=== PATIENT | female | born 1980 | race Caucasian/White ===

== ENCOUNTER 2022-09-21 09:54 | Observation (INO) | payer BC, SELFPAY ==
[2022-09-21] VITALS (24 sets, daily range): BP systolic 104–136; BP diastolic 59–89; PULSE 52–106; RESP 6–24; TEMP 36.4–36.9; O2SAT 97–100; BMI 26.6; BMI 26.3
--- NOTE | 2022-09-21 10:10 | CT_ITS ---
The [address] [address] Patient Name: DENISHA OWEN MRN: [id number] date: 1980 Sex: F Assigned Patient Location: ER Current Patient Location: ER Accession/Order Number: [id number] Exam Date: 09/21/2022 10:38 Report Date: 09/21/2022 11:20 At the request of: JENNIFER ORTEGA Procedure: CT abdomen pelvis w con EXAM: CT abdomen pelvis w con HISTORY: upper abdominal pain for one month which is worse in this morning. Nausea and vomiting this morning. COMPARISON: None. TECHNIQUE: Axial CT imaging was performed through the abdomen and pelvis with intravenous contrast. Multiplanar reformats were performed. Dose reduction techniques were achieved by using automated exposure control and/or adjustment of mA and/or kV according to patient size and/or use of iterative reconstruction technique. FINDINGS: Lung bases: Lung bases are clear. No pleural effusion. GI upper: Unremarkable. Liver: Normal size and contour. Indeterminate subcentimeter hypoattenuating lesions most likely represent tiny cysts or hemangiomas. Gallbladder: Cholecystectomy. Biliary system: Prominence of the biliary ducts is most likely postcholecystectomy in nature. Spleen: Normal size. Pancreas: Unremarkable. Adrenal glands: Normal adrenal glands. Kidneys/ureters: Normal contours. No hydronephrosis or ureterolithiasis. No nephrolithiasis. Subcentimeter hypoattenuating lesions of the bilateral kidneys are too small to further characterize although statistically most likely represent cysts. Vessels: No aneurysm. Lymph Nodes: No lymphadenopathy. Small bowel: No wall thickening or dilatation. Colon: Much of the distal colon is not well distended with mildly prominent wall. Few colonic diverticula without associated inflammatory change. Appendix: The appendix is mildly prominent in caliber without definite periappendiceal inflammatory change, measuring 9 mm (image 103 of series 3 and image 40 of series 5). Peritoneal cavity: Minimal free fluid within the pelvis is within physiologic limits. No pneumoperitoneum. Lower : Hysterectomy. Findings suspicious for right corpus luteum cyst. Possible left corpus luteum cyst as well. The bladder is not well distended which limits evaluation; no significant abnormality demonstrated. Bones: Degenerative findings without acute bony abnormality. Moderate spondylosis at L5-S1. Soft tissues: No acute finding. Additional findings: None. IMPRESSION: 1. Prominence of the distal colon wall is likely related to underdistention. Please exclude nonspecific colitis. 2. The appendix is enlarged without definite periappendiceal inflammatory change, measuring 9 mm. This may represent incidental finding or early/mild appendicitis. Clinical correlation is necessary. 3. Suspect bilateral corpus luteum cysts. 4. Additional findings as above. Electronically authenticated by: RANDALL THOMPSON Date: 09/21/2022 11:20
--- NOTE | 2022-09-21 10:12 | ED.ABDPAIN1 ---
HPI - Abdominal Pain General Chief Complaint: Abdominal Pain Stated Complaint: SEVERE ABDOMINAL PAIN Time Seen by Provider: 09/21/22 09:55 Source: patient Source comment: patient Mode of arrival: walk-in Limitations: no limitations History of Present Illness HPI narrative: 42-year-old female presents for abdominal pain. It began early this morning. She points across her upper abdomen and it goes circumferentially at that same level. No lower abdominal pain. She is nauseous and she vomited. No constipation or diarrhea. No fever. She's had previous cholecystectomy . The pain is severe and continuous. Related Data Home Medications Medication Instructions Recorded Confirmed escitalopram oxalate 10 mg tablet 10 mg PO DAILY 09/21/22 09/21/22 tizanidine 4 mg tablet 4 mg PO Q12H PRN muscle spasticity 09/21/22 09/21/22 Allergies Allergy/AdvReac Type Severity Reaction Status Date / Time No Known Drug Allergies Allergy Verified 09/21/22 10:13 Review of Systems ROS Narrative A ten point review of systems is negative except as noted above. PFSH PFSH Social History Smoking status: Current every day smoker Exam Narrative Exam Narrative: Nurses note and vital signs reviewed and patient is not hypoxic. General: The patient appears uncomfortable, she is moving around on the cart nearly he was really. Skin: Warm, dry, no pallor noted. There is no rash noted. Head: Normocephalic, atraumatic Eye: Normal conjunctiva, no drainage Nares patent. Mouth without vesicles. Cardiovascular: Regular Rate and Rhythm Respiratory: Patient is in no distress, no accessory muscle use, lungs are clear to auscultation, no wheezing, rales or rhonchi Back: non-tender, no CVA tenderness bilaterally to percussion. GI: tender across the upper abdomen. No distention. Musculoskeletal: The patient has no evidence of calf tenderness, no pitting edema, symmetrical pulses noted bilaterally Neurological: A&O, normal speech Psychiatric: Cooperative Constitutional Vital Signs, click to edit/add: Last Vital Signs Temp 97.5 F L 09/21/22 10:02 Pulse 68 09/21/22 12:04 Resp 16 09/21/22 12:04 BP 123/69 H 09/21/22 12:04 Pulse Ox 100 09/21/22 12:04 O2 Del Method Room Air 09/21/22 10:02 Course Vital Signs Vital signs: Vital Signs Temperature 97.5 F L 09/21/22 10:02 Pulse Rate 77 09/21/22 10:02 Respiratory Rate 16 09/21/22 10:02 Blood Pressure 136/89 H 09/21/22 10:02 Pulse Oximetry 98 09/21/22 10:02 Oxygen Delivery Method Room Air 09/21/22 10:02 Temperature 97.5 F L 09/21/22 10:02 Pulse Rate 68 09/21/22 12:04 Respiratory Rate 16 09/21/22 12:04 Blood Pressure 123/69 H 09/21/22 12:04 Pulse Oximetry 100 09/21/22 12:04 Oxygen Delivery Method Room Air 09/21/22 10:02 MDM - Abdominal Pain MDM Narrative Medical decision making narrative: WBC is normal. CT per radiologist suggests a slightly enlarged appendix with no. Pending is inflammation.. Examination at noon shows tenderness in the right lower quadrant. Case discussed with Dr. Dawson and the patient will be admitted to Dr. Ellsworth, case discussed with him as well, for observation. Differential Diagnosis Differential diagnosis: Likely abdominal pain, acute appendicitis, constipation, diverticulitis, gastroenteritis and pancreatitis Lab Data Attestation: I reviewed the patient's lab results. Labs: Lab Results 09/21/22 Range/Units 10:11 WBC 10.7 (4.0-11.0) 10^3/uL RBC 4.56 (4.20-5.40) 10^6/uL Hgb 13.5 (12.0-16.0) g/dL Hct 40.3 (36.0-48.0) % MCV 88.4 (81.0-99.0) fL MCH 29.6 (26.7-34.0) pg MCHC 33.5 (29.9-35.2) g/dL RDW 12.3 (11.0-15.0) % Plt Count 296 (150-450) 10^3/uL MPV 10.4 (9.5-13.5) fL Neut % (Auto) 74.8 (43.0-75.0) % Lymph % (Auto) 17.7 L (20.5-60.0) % [place] % (Auto) 6.3 (1.7-12.0) % Eos % (Auto) 0.4 L (0.9-7.0) % Baso % (Auto) 0.5 (0.2-2.0) % Neut # (Auto) 8.0 H (1.4-6.5) 10^3/uL Lymph # (Auto) 1.9 (1.2-3.8) 10^3/uL [place] # (Auto) 0.7 (0.3-0.8) 10^3/uL Eos # (Auto) 0.0 (0.0-0.7) 10^3/uL Baso # (Auto) 0.1 (0.0-0.1) 10^3/uL Abs Immat Gran (auto) 0.03 (0.00-0.03) 10^3/uL Imm/Tot Granulo (auto) 0.3 (0.0-0.5) % Sodium 136 (136-145) mmol/L Potassium 3.8 (3.5-5.1) mmol/L Chloride 105 (98-107) mmol/L Carbon Dioxide 24.4 (21.0-32.0) mmol/L Anion Gap 10.4 BUN 9.0 (7.0-18.0) mg/dL Creatinine 0.81 (0.55-1.02) mg/dL Est GFR ( Amer) >60 (>=60) Est GFR (Non-Af Amer) >60 (>=60) BUN/Creatinine Ratio 11.1 Glucose 93 (74-106) mg/dL Calcium 8.7 (8.5-10.1) mg/dL Total Bilirubin 0.7 (0.2-1.0) mg/dL AST 9 L (15-37) U/L ALT 17 (14-59) U/L Alkaline Phosphatase 33 L (46-116) U/L Total Protein 7.2 (6.4-8.2) g/dL Albumin 3.9 (3.4-5.0) g/dL Globulin 3.3 g/dL Albumin/Globulin Ratio 1.2 Amylase 61 (25-115) U/L Lipase 232.0 (73.0-393.0) U/L Discharge Plan Discharge Chief Complaint: Abdominal Pain Clinical Impression: Abdominal pain Patient Disposition: Admitted as Observation Time of Disposition Decision: 12:16 Prescriptions / Home Meds: No Action escitalopram oxalate 10 mg tablet 10 mg PO DAILY tizanidine 4 mg tablet 4 mg PO Q12H PRN (Reason: muscle spasticity) Referrals: Physician,Non-Staff, MD [Primary Care Provider] - 1 week
[2022-09-21] MEDS: ONDANSETRON PF 4 MG/2 ML VIAL IV (10:21)
[2022-09-21] MEDS: 0.9 % SODIUM CHLORIDE 1,000 ML 100 ML IV (10:21)
[2022-09-21] MEDS: MORPHINE SULFATE 4 MG/ML VIAL IV ×2 (10:30→12:23)
[2022-09-21 10:33] LABS: Basophils Absolute Auto 0.1 10^3/uL (0.0-0.1); Basophils Percent Auto 0.5 % (0.2-2.0); Eosinophils Percent Auto 0.4 % (0.9-7.0); Hematocrit 40.3 % (36.0-48.0); Hemoglobin 13.5 g/dL (12.0-16.0); Immature Granulocytes Abs Auto 0.03 10^3/uL (0.00-0.03); Immature Granulocytes Pct Auto 0.3 % (0.0-0.5); Lymphocytes Absolute Auto 1.9 10^3/uL (1.2-3.8); Lymphocytes Percent Auto 17.7 % (20.5-60.0); Mean Corpuscular HGB Conc 33.5 g/dL (29.9-35.2); Mean Corpuscular Hemoglobin 29.6 pg (26.7-34.0); Mean Corpuscular Volume 88.4 fL (81.0-99.0); Mean Platelet Volume 10.4 fL (9.5-13.5); Monocytes Absolute Auto 0.7 10^3/uL (0.3-0.8); Monocytes Percent Auto 6.3 % (1.7-12.0); Neutrophils Percent Auto 74.8 % (43.0-75.0); Platelet Count 296 10^3/uL (150-450); Red Blood Count 4.56 10^6/uL (4.20-5.40); Red Cell Distribution Width 12.3 % (11.0-15.0); White Blood Count 10.7 10^3/uL (4.0-11.0)
[2022-09-21 10:40] LABS: Alanine Aminotransferase 17 U/L (14-59); Albumin Globulin Ratio 1.2; Albumin Level 3.9 g/dL (3.4-5.0); Alkaline Phosphatase 33 U/L (46-116); Amylase 61 U/L (25-115); Anion Gap 10.4; Aspartate Amino Transferase 9 U/L (15-37); BUN Creatinine Ratio 11.1; Bilirubin Total 0.7 mg/dL (0.2-1.0); Calcium 8.7 mg/dL (8.5-10.1); Carbon Dioxide 24.4 mmol/L (21.0-32.0); Chloride 105 mmol/L (98-107); Estimated GFR (African America >60 (>=60); Estimated GFR (Non-African Ame >60 (>=60); Globulin 3.3 g/dL; Glucose 93 mg/dL (74-106); Potassium 3.8 mmol/L (3.5-5.1); Sodium 136 mmol/L (136-145); Total Protein 7.2 g/dL (6.4-8.2)
--- NOTE | 2022-09-21 11:22 | ECG_ITS ---
The [facility] Test Date: 2022-09-21 Pat Name: DENISHA OWEN Department: Room: - Gender: Female Crew Person: : 1980 Requested By: [id number] Order Number: [id number] Reading MD: HUSSEIN NOLAND Measurements Intervals [place] Rate: 59 P: 51 [place]: 136 QRS: 70 QRSD: 76 T: 48 QT: 394 QTc: 394 Interpretive Statements 1100 Sinus rhythm 8102 Low QRS voltage in chest leads 9120 atypical ECG No previous ECG available for comparison Electronically Signed On 09-22-2022 6:41:11 EDT by HUSSEIN NOLAND
--- NOTE | 2022-09-21 13:42 | P.HP_ITS ---
H&P: HPI History of Present Illness Chief complaint: SEVERE ABDOMINAL PAIN Narrative: Pt with hx over last month of irritable bowel type symptoms - remote hx gallbadder removed, presented to the ER with increasing abd pain, no fever - pain more generalized, in ER - suggested enlarged appendix but not surrounded byu fluid and thickened colonic wall. Patient with significant tenderness on exam and is admitted for work-up and treatment of same Review of Systems ROS Constitutional Reports: fatigue; Denies: fever, chills or change in weight Neurological Denies: headache Psychiatric Denies: anxiety PFSH PFSH Medical History (Updated 09/21/22 @ 13:08 by Roxana Hardwick) Surgical History (Updated 09/21/22 @ 13:08 by Roxana Hardwick) Family History (Updated 09/21/22 @ 13:09 by Roxana Hardwick) Grandmother Family history of cancer Family history of diabetes mellitus Family history of hypertension Social History (Updated 09/21/22 @ 13:11 by Roxana Hardwick) Within the past year, how often did you have a drink containing alcohol: never Score interpretation: A score less than 3 is consistent with normal alcohol consumption. 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 Highest level of school completed/degree received: some college, no degree Meds Home Medications and Allergies Home Medications Medication Instructions Recorded Confirmed Type escitalopram oxalate 10 mg tablet 10 mg PO DAILY 09/21/22 09/21/22 History tizanidine 4 mg tablet 4 mg PO Q12H PRN muscle spasticity 09/21/22 09/21/22 History Allergies Allergy/AdvReac Type Severity Reaction Status Date / Time No Known Drug Allergies Allergy Verified 09/21/22 10:13 Exam Constitutional Vital Signs, click to edit/add: Last Vital Signs Temp 97.5 F L 09/21/22 12:41 Pulse 61 09/21/22 12:41 Resp 18 09/21/22 12:41 BP 109/70 09/21/22 12:41 Pulse Ox 100 09/21/22 12:41 O2 Del Method Room Air 09/21/22 12:41 Neck & C-Spine Common normals: full ROM Respiratory Common normals: normal respiratory effort, no retractions and clear to auscultation bilaterally Cardio Common normals: regular rate, regular rhythm and no murmurs GI Common normals: Normal to inspection, nondistended, normoactive bowel sounds present Palpation: soft, tender Details: Rovsing's sign and rebound tenderness present Results Labs Labs: Short CBC 09/21/22 Range/Units 10:11 WBC 10.7 (4.0-11.0) 10^3/uL Hgb 13.5 (12.0-16.0) g/dL Hct 40.3 (36.0-48.0) % Plt Count 296 (150-450) 10^3/uL BMP 09/21/22 10:11 Sodium 136 Potassium 3.8 Chloride 105 Carbon Dioxide 24.4 BUN 9.0 Creatinine 0.81 Glucose 93 Calcium 8.7 Liver Function 09/21/22 Range/Units 10:11 Total Bilirubin 0.7 (0.2-1.0) mg/dL AST 9 L (15-37) U/L ALT 17 (14-59) U/L Alkaline Phosphatase 33 L (46-116) U/L Albumin 3.9 (3.4-5.0) g/dL Assessment and Plan Assessment and Plan (1) Abdominal pain: (2) Bulging lumbar disc: (3) History of cholecystectomy: Plan Sinus tachycardia, acute abdominal pain, possible secondary to acute appendicitis and early that she does have a thickened colonic wall. Her pain is more significant than would expect for mild appendicitis. She has significant tenderness. Diffusely tender with some mild rebound tenderness. After reviewing CT scan results more likely colitis. We will continue with current antibiotics. Check sedimentation rate. Check lactate level. Consultation to surgery. Cervical disc disease-we will change patient to Norflex instead of the tizanidine Anxiety and depression-continue with home medications- Continue patient observation status. Possible inpatient admission based on results of further testing and evaluations later today.
[2022-09-21] MEDS: LACTATED RINGER'S SOLUTION 1,000 ML 125 ML IV (13:52)
[2022-09-21] MEDS: PANTOPRAZOLE SODIUM 40 MG VIAL IV (13:52)
[2022-09-21] MEDS: METRONIDAZOLE/SODIUM CHLORIDE 500 MG/100 ML PREMIX 100 MG IV (13:52)
[2022-09-21] MEDS: HYOSCYAMINE SULFATE 0.125 MG/ML DROPS PO (13:53)
[2022-09-21] MEDS: ORPHENADRINE 60 MG/ 2 ML VIAL IV (14:06)
[2022-09-21] MEDS: CIPROFLOXACIN IN 5 % DEXTROSE 400 MG/200 ML PIGGYBACK 200 MG IV (14:47)
[2022-09-21 15:33] LABS: C Reactive Protein <0.2 mg/dL (<=1.0)
[2022-09-21 15:38] LABS: Lactate/Lactic Acid 0.4 mmol/L (0.4-2.0)
[2022-09-21] MEDS: KETOROLAC TROMETHAMINE 30 MG/ML VIAL IVP (17:05)
[2022-09-21 18:25] LABS: Bilirubin Urine NEGATIVE (NEGATIVE); Blood Urine NEGATIVE (NEGATIVE); Clarity Urine CLEAR (CLEAR); Color Urine YELLOW (YELLOW); Glucose Urine UA NEGATIVE (NEGATIVE); Ketones Urine 15 mg/dL (NEGATIVE); Leukocyte Esterase Urine NEGATIVE (NEGATIVE); Nitrite Urine NEGATIVE (NEGATIVE); Protein Urine NEGATIVE (NEG/TRACE); Specific Gravity Urine >=1.030 (1.005-1.025); Urobilinogen Urine 0.2 EU/dL (0.2-1.0)
--- NOTE | 2022-09-21 18:31 | CONS_ITS ---
CONSULTATION DATE: ??09/21/2022 REASON FOR CONSULTATION:? Abdominal pain. HISTORY OF PRESENT ILLNESS:? Patient is a 42-year-old female with history of disc disease of the lumbar and cervical spine, who reports approximately one month history of intermittent postprandial upper abdominal pain, that she describes as a sharp, crampy pain that occurs 30 minutes after eating, lasts for several hours.? She has had some associated constipation with bowel movements every several days, and she used to go daily.? She has had no melena, hematochezia or bright red blood per rectum.? No nausea or vomiting.? Today, however, she developed severe pain that woke her up from sleep, similar to pain that she had been having previously, but was more diffuse.? She describes it as a crampy, sharp pain throughout the abdomen.? She did have some nausea due to the pain, as well as one episode of bilious emesis with no resolution of the pain.? She was restless and could not get comfortable because of the pain.? Because of the persistence of the pain and the more severe pain, she presented to the emergency room for evaluation.? She denies any fever or chills or night sweats, has had no ill contacts.? No recent travel. PAST SURGICAL HISTORY:? Significant for laparoscopic cholecystectomy as well as vaginal hysterectomy; ovaries were left in, tubes were removed. ?She did have several laparoscopies for gynecologic reasons as well. ER COURSE:? Workup in the emergency room revealed normal white blood cell count as well as laboratory evaluation.? She had normal vital signs.? She did undergo a CT scan of the abdomen and pelvis, which revealed some under distention of the colon, as well as some mild thickening of the colon, possible slight inflammatory changes within the transverse colon.? No free fluid.? Appendix was read as 9 mm, but without inflammatory changes.? There is no evidence of fecalith.? Appendix is down in the pelvis, in the area of previous hysterectomy.? No evidence of obstruction of the appendix, fecalith, enhancement or thickening of the wall or periappendiceal fluid.? Patient was admitted for further evaluation, possible colitis, and has been placed on Cipro and Flagyl IV by Dr. Ellsworth, the hospitalist.? She is also on IV protonix.? She has had no further nausea or vomiting.? She reports that the pain is currently under control and she is taking some Toradol.? She has had no previous endoscopy.? Denies any history of ulcer disease.? Has had no episodes of jaundice or pancreatitis in the past.? FAMILY HISTORY:? Noncontributory. SOCIAL HISTORY:? Patient does vape as well as use cannabis.? Reports occasional alcohol use.? No illicit drug use. REVIEW OF SYSTEMS:? Ten system review of systems is negative for recent weight loss or weight gain.? She denies increased fatigue or light-headedness.? Has had no earache or tinnitus.? No sinus congestion.? No sore throat or hoarseness.? No chest pain, palpitations or syncope.? No chronic cough, shortness of breath or hemoptysis.? She has had the abdominal pain, the one episode of nausea and vomiting, as well as the constipation, but she had a normal bowel movement today.? No melena, hematochezia or bright red blood per rectum.? No dysuria, frequency, urgency or hematuria.? No headaches, seizures or tremors.? No easy bruising or bleeding.? No heat or cold intolerance.? No polydipsia, polyphagia or polyuria. PHYSICAL EXAM:? VITAL SIGNS:? Patient is afebrile.? Blood pressure is 104/67.? Pulse is 67 and regular.? Respiratory rate is 16.? O2 saturation is 97% on room air.? GENERAL:? In general, she is a well developed, well nourished female, currently in no acute distress. HEENT:? Normocephalic, atraumatic.? Sclerae anicteric.? Conjunctiva not injected.? Oral mucosa is moist without lesions. NECK:? Supple.? There is no adenopathy, thyromegaly or JVD. LUNGS:? Clear bilaterally. CARDIAC EXAM:? Regular rhythm and rate without appreciable murmurs, rubs or gallops. ABDOMEN:? Soft.? There are hyperactive bowel sounds.? It is non-distended.? There is mild diffuse tenderness in the mid and right abdomen.? There are no peritoneal signs, no masses, no hepatosplenomegaly, no hernias, no CVA tenderness.? SKIN:? Warm and dry without lesions, rashes or ulcers. NEURO EXAM:? Non-focal.? Non-lateralizing.? Patient is awake, alert, oriented with appropriate affect. MUSCULOSKELETAL EXAM:? There is normal muscle strength, mass and tone. ASSESSMENT:? A 42-year-old female with severe worsening abdominal pain today, but a one month history of intermittent postprandial pain, as well as constipation.? CT scan with possible colitis.? This also may represent some type of adhesions postoperative; however, she has no evidence of obstruction at this time.? She has no evidence of appendicitis by history, exam or CT scan findings or laboratory evaluation.? PLAN:? I would treat her conservatively.? She does feel hungry and has had no further nausea or vomiting, so we will advance her to a clear liquid diet.? Monitor her vital signs as well as labs.? She will likely require EGD and colonoscopy as an outpatient for further evaluation of her symptoms.? Thank you for allowing me to participate in her care.? Will be happy to follow with you during her hospital course. CC:? Patient?s family physician MICHAEL
--- NOTE | 2022-09-21 18:40 | P.GSCN_ITS ---
History of Present Illness Consult details Consult date: 09/21/22 Requesting physician: Ambrosio Ellsworth Narrative: patient seen/examined/CT scan images and chart reviewed/consult dictated; 42 yo female with acute onset of mid and lower abd pain this am; one episode of nausea/voming; 1 month h/o intermittent post prandial sharp, crampy pain that lasted for hours, and constipation; CT scan with possible colitis; no evidence of appendiceal obstruction, fecalith, wall-thickening, inflammation or free fluid; agree with bowel rest, empiric antibiotics; supportive care; serial labs/exams; will begin clear liquids. [facility] Medical History (Updated 09/21/22 @ 13:08 by Roxana Hardwick) Surgical History (Updated 09/21/22 @ 13:08 by Roxana Hardwick) Family History (Updated 09/21/22 @ 13:09 by Roxana Hardwick) Grandmother Family history of cancer Family history of diabetes mellitus Family history of hypertension Social History (Updated 09/21/22 @ 13:11 by Roxana Hardwick) Within the past year, how often did you have a drink containing alcohol: never Score interpretation: A score less than 3 is consistent with normal alcohol consumption. 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 Highest level of school completed/degree received: some college, no degree Meds Home Medications and Allergies Home Medications Medication Instructions Recorded Confirmed Type escitalopram oxalate 10 mg tablet 10 mg PO DAILY 09/21/22 09/21/22 History tizanidine 4 mg tablet 4 mg PO Q12H PRN muscle spasticity 09/21/22 09/21/22 History Allergies Allergy/AdvReac Type Severity Reaction Status Date / Time No Known Drug Allergies Allergy Verified 09/21/22 10:13 Exam Constitutional Vital Signs, click to edit/add: Last Vital Signs Temp 97.5 F L 09/21/22 12:41 Pulse 67 09/21/22 17:02 Resp 16 09/21/22 17:02 BP 104/67 09/21/22 17:02 Pulse Ox 97 09/21/22 17:02 O2 Del Method Room Air 09/21/22 17:02 Results Labs Labs: Abnormal lab results 09/21/22 Range/Units 10:11 Lymph % (Auto) 17.7 L (20.5-60.0) % Eos % (Auto) 0.4 L (0.9-7.0) % Neut # (Auto) 8.0 H (1.4-6.5) 10^3/uL AST 9 L (15-37) U/L Alkaline Phosphatase 33 L (46-116) U/L Diabetes panel 09/21/22 Range/Units 10:11 Sodium 136 (136-145) mmol/L Potassium 3.8 (3.5-5.1) mmol/L Chloride 105 (98-107) mmol/L Carbon Dioxide 24.4 (21.0-32.0) mmol/L BUN 9.0 (7.0-18.0) mg/dL Creatinine 0.81 (0.55-1.02) mg/dL Glucose 93 (74-106) mg/dL Calcium 8.7 (8.5-10.1) mg/dL AST 9 L (15-37) U/L ALT 17 (14-59) U/L Alkaline Phosphatase 33 L (46-116) U/L Total Protein 7.2 (6.4-8.2) g/dL Albumin 3.9 (3.4-5.0) g/dL Calcium panel 09/21/22 Range/Units 10:11 Calcium 8.7 (8.5-10.1) mg/dL Albumin 3.9 (3.4-5.0) g/dL Pituitary panel 09/21/22 Range/Units 10:11 Sodium 136 (136-145) mmol/L Potassium 3.8 (3.5-5.1) mmol/L Chloride 105 (98-107) mmol/L Carbon Dioxide 24.4 (21.0-32.0) mmol/L BUN 9.0 (7.0-18.0) mg/dL Creatinine 0.81 (0.55-1.02) mg/dL Glucose 93 (74-106) mg/dL Calcium 8.7 (8.5-10.1) mg/dL Adrenal panel 09/21/22 Range/Units 10:11 Sodium 136 (136-145) mmol/L Potassium 3.8 (3.5-5.1) mmol/L Chloride 105 (98-107) mmol/L Carbon Dioxide 24.4 (21.0-32.0) mmol/L BUN 9.0 (7.0-18.0) mg/dL Creatinine 0.81 (0.55-1.02) mg/dL Glucose 93 (74-106) mg/dL Calcium 8.7 (8.5-10.1) mg/dL Total Bilirubin 0.7 (0.2-1.0) mg/dL AST 9 L (15-37) U/L ALT 17 (14-59) U/L Alkaline Phosphatase 33 L (46-116) U/L Total Protein 7.2 (6.4-8.2) g/dL Albumin 3.9 (3.4-5.0) g/dL All other labs normal. Assessment and Plan Assessment and Plan (1) Abdominal pain: (2) Bulging lumbar disc: (3) History of cholecystectomy: Plan Sinus tachycardia, acute abdominal pain, possible secondary to acute appendicitis and early that she does have a thickened colonic wall. Her pain is more significant than would expect for mild appendicitis. She has significant tenderness. Diffusely tender with some mild rebound tenderness. After reviewing CT scan results more likely colitis. We will continue with current antibiotics. Check sedimentation rate. Check lactate level. Consultation to surgery. Cervical disc disease-we will change patient to Norflex instead of the tizanidine Anxiety and depression-continue with home medications- Continue patient observation status. Possible inpatient admission based on results of further testing and evaluations later today.
[2022-09-21 18:42] LABS: Urine Microscopic Indicated NO
[2022-09-21] MEDS: METRONIDAZOLE/SODIUM CHLORIDE 500 MG/100 ML PREMIX 200 MG IV (21:06)
[2022-09-21] MEDS: HYOSCYAMINE SULFATE 0.125 MG TAB.SUBL (21:21)
[2022-09-22] VITALS (8 sets, daily range): BP systolic 96–114; BP diastolic 55–78; PULSE 50–72; RESP 14–18; TEMP 36.3–36.8; O2SAT 97–98
[2022-09-22] MEDS: LACTATED RINGER'S SOLUTION 1,000 ML 125 ML IV ×2 (00:29→08:11)
[2022-09-22] MEDS: HYOSCYAMINE SULFATE 0.125 MG TAB.SUBL SL ×2 (02:53→09:33)
[2022-09-22] MEDS: METRONIDAZOLE/SODIUM CHLORIDE 500 MG/100 ML PREMIX 200 MG IV (02:54)
[2022-09-22] MEDS: ORPHENADRINE 60 MG/ 2 ML VIAL IV ×2 (02:55→14:10)
[2022-09-22] MEDS: CIPROFLOXACIN IN 5 % DEXTROSE 400 MG/200 ML PIGGYBACK 200 MG IV ×2 (03:49→15:29)
[2022-09-22 05:04] LABS: Basophils Percent Auto 0.5 % (0.2-2.0); Eosinophils Absolute Auto 0.1 10^3/uL (0.0-0.7); Eosinophils Percent Auto 0.8 % (0.9-7.0); Hematocrit 32.3 % (36.0-48.0); Hemoglobin 10.4 g/dL (12.0-16.0); Immature Granulocytes Abs Auto 0.03 10^3/uL (0.00-0.03); Immature Granulocytes Pct Auto 0.4 % (0.0-0.5); Lymphocytes Absolute Auto 2.1 10^3/uL (1.2-3.8); Lymphocytes Percent Auto 27.8 % (20.5-60.0); Mean Corpuscular HGB Conc 32.2 g/dL (29.9-35.2); Mean Corpuscular Hemoglobin 29.5 pg (26.7-34.0); Mean Corpuscular Volume 91.5 fL (81.0-99.0); Mean Platelet Volume 10.8 fL (9.5-13.5); Monocytes Absolute Auto 0.8 10^3/uL (0.3-0.8); Monocytes Percent Auto 10.4 % (1.7-12.0); Neutrophils Absolute Auto 4.5 10^3/uL (1.4-6.5); Neutrophils Percent Auto 60.1 % (43.0-75.0); Platelet Count 207 10^3/uL (150-450); Red Blood Count 3.53 10^6/uL (4.20-5.40); Red Cell Distribution Width 12.4 % (11.0-15.0); White Blood Count 7.5 10^3/uL (4.0-11.0)
[2022-09-22 05:46] LABS: Alanine Aminotransferase 14 U/L (14-59); Albumin Level 2.8 g/dL (3.4-5.0); Alkaline Phosphatase 26 U/L (46-116); Anion Gap 7.1; Aspartate Amino Transferase <5 U/L (15-37); BUN Creatinine Ratio 8.2; Bilirubin Total 0.8 mg/dL (0.2-1.0); C Reactive Protein 1.7 mg/dL (<=1.0); Calcium 8.1 mg/dL (8.5-10.1); Carbon Dioxide 26.7 mmol/L (21.0-32.0); Chloride 108 mmol/L (98-107); Estimated GFR (African America >60 (>=60); Estimated GFR (Non-African Ame >60 (>=60); Globulin 2.8 g/dL; Glucose 93 mg/dL (74-106); Potassium 3.8 mmol/L (3.5-5.1); Sodium 138 mmol/L (136-145); Total Protein 5.6 g/dL (6.4-8.2)
[2022-09-22] MEDS: METRONIDAZOLE/SODIUM CHLORIDE 500 MG/100 ML PREMIX 100 MG IV ×3 (08:11→22:36)
[2022-09-22] MEDS: ESCITALOPRAM 10 MG TABLET PO (08:12)
--- NOTE | 2022-09-22 10:24 | P.PN_ITS ---
Progress Note: Subjective Subjective Interval history: pain better but persisting Exam Constitutional Vital Signs, click to edit/add: Last Vital Signs Temp 97.4 F L 09/22/22 07:55 Pulse 72 09/22/22 07:33 Resp 18 09/22/22 07:33 BP 109/62 09/22/22 07:33 Pulse Ox 97 09/22/22 07:33 O2 Del Method Room Air 09/21/22 20:25 Chest Common normals: inspection of chest normal Respiratory Common normals: normal respiratory effort, no use of accessory muscles and clear to auscultation bilaterally Cardio Common normals: regular rate, regular rhythm and no murmurs GI Common normals: soft to palpation Palpation: tender (some better than previous day, ) Details: RLQ and Rovsing's sign Extremity Common normals: normal to inspection Progress Note: Objective Labs Labs: Short CBC 09/21/22 09/22/22 Range/Units 10:11 04:05 WBC 10.7 7.5 (4.0-11.0) 10^3/uL Hgb 13.5 10.4 L (12.0-16.0) g/dL Hct 40.3 32.3 L (36.0-48.0) % Plt Count 296 207 (150-450) 10^3/uL BMP 09/21/22 09/22/22 10:11 04:40 Sodium 136 138 Potassium 3.8 3.8 Chloride 105 108 H Carbon Dioxide 24.4 26.7 BUN 9.0 6.0 L Creatinine 0.81 0.73 Glucose 93 93 Calcium 8.7 8.1 L Liver Function 09/21/22 09/22/22 Range/Units 10:11 04:40 Total Bilirubin 0.7 0.8 (0.2-1.0) mg/dL AST 9 L <5 L (15-37) U/L ALT 17 14 (14-59) U/L Alkaline Phosphatase 33 L 26 L (46-116) U/L Albumin 3.9 2.8 L (3.4-5.0) g/dL Urine 09/21/22 Range/Units 18:20 Urine Color Yellow (YELLOW) Urine Clarity Clear (CLEAR) Urine pH 5.0 (5.0-9.0) Ur Specific Huffman >=1.030 A (1.005-1.025) Urine Protein Negative (NEG/TRACE) mg/dL Urine Glucose (UA) Negative (NEGATIVE) mg/dL Progress Note: A&P Assessment and Plan (1) Abdominal pain: (2) Bulging lumbar disc: (3) History of cholecystectomy: Plan Sinus tachycardia, acute abdominal pain, dehydration, possible secondary to possible acute appendicitis and early that she does have a thickened colonic wall.? Pain better - possible still colitis - inc dose levsin - review plan of care with surgery, does have elevated CRP Cervical disc disease-we will change patient to Norflex instead of the tizanidine Anxiety and depression-continue with home medications- stable Continue patient observation status.? Possible inpatient admission based on results of further testing and evaluations later today. Iron def anemia - doubt acute blood loss - likely higer than normal on admission and now at baseline - check stool for occ blood
--- NOTE | 2022-09-22 10:28 | PM.GSPN ---
Progress Note: A&P Assessment and Plan (1) Abdominal pain: Assessment and Plan: improving; normal wbc, drop in h/h likely from hydration, possible ruptured ovarian cysts with bleeding; likely gastroenteritis. (2) Bulging lumbar disc: (3) History of cholecystectomy: Plan continue supportive care; empiric antibiotics; advance to regular diet; if tolerates, can discharge on oral antibiotics for 5 days; low residue diet; ibuprofen for pain. Subjective Subjective Patient reports: no new complaints, feels better, pain is less, tolerating liquids well, voiding w/o difficulty and no bowel movement Exam Narrative Exam Narrative: resting comfortable; abd: soft, increased bowel sounds, nondistended; tinder bilateral lower abd, no peritoneal signs, no masses. Constitutional Vital Signs, click to edit/add: Last Vital Signs Temp 97.4 F L 09/22/22 07:55 Pulse 72 09/22/22 07:33 Resp 18 09/22/22 07:33 BP 109/62 09/22/22 07:33 Pulse Ox 97 09/22/22 07:33 O2 Del Method Room Air 09/21/22 20:25
[2022-09-22] MEDS: HYOSCYAMINE SULFATE 0.125 MG TAB.SUBL 0.25 MG SL ×3 (12:20→22:41)
[2022-09-22] MEDS: 0.9 % SODIUM CHLORIDE 250 ML 100 ML IV (14:09)
[2022-09-22] MEDS: PANTOPRAZOLE SODIUM 40 MG VIAL IV (14:10)
[2022-09-22] MEDS: KETOROLAC TROMETHAMINE 30 MG/ML VIAL IVP ×2 (14:18→22:41)
[2022-09-23] MEDS: METRONIDAZOLE/SODIUM CHLORIDE 500 MG/100 ML PREMIX 100 MG IV ×2 (03:01→08:27)
[2022-09-23] MEDS: ORPHENADRINE 60 MG/ 2 ML VIAL IV (03:01)
[2022-09-23] MEDS: CIPROFLOXACIN IN 5 % DEXTROSE 400 MG/200 ML PIGGYBACK 125 MG IV (04:34)
[2022-09-23 04:49] VITALS: BP 106/69; PULSE 50; RESP 18; TEMP 36.6; O2SAT 95
[2022-09-23 05:21] LABS: Albumin Globulin Ratio 1.1; Albumin Level 2.8 g/dL (3.4-5.0); Aspartate Amino Transferase 10 U/L (15-37); BUN Creatinine Ratio 13.4; Bilirubin Total 0.4 mg/dL (0.2-1.0); C Reactive Protein 1.1 mg/dL (<=1.0); Calcium 7.9 mg/dL (8.5-10.1); Carbon Dioxide 24.9 mmol/L (21.0-32.0); Chloride 110 mmol/L (98-107); Estimated GFR (African America >60 (>=60); Estimated GFR (Non-African Ame >60 (>=60); Globulin 2.6 g/dL; Glucose 93 mg/dL (74-106); Potassium 3.9 mmol/L (3.5-5.1); Sodium 141 mmol/L (136-145); Total Protein 5.4 g/dL (6.4-8.2)
[2022-09-23 05:59] LABS: Alanine Aminotransferase 15 U/L (14-59); Alkaline Phosphatase 26 U/L (46-116)
[2022-09-23 06:05] LABS: Basophils Percent Auto 0.6 % (0.2-2.0); Eosinophils Absolute Auto 0.1 10^3/uL (0.0-0.7); Eosinophils Percent Auto 1.4 % (0.9-7.0); Hematocrit 30.9 % (36.0-48.0); Hemoglobin 10.4 g/dL (12.0-16.0); Immature Granulocytes Abs Auto 0.01 10^3/uL (0.00-0.03); Immature Granulocytes Pct Auto 0.2 % (0.0-0.5); Lymphocytes Absolute Auto 1.9 10^3/uL (1.2-3.8); Lymphocytes Percent Auto 36.4 % (20.5-60.0); Mean Corpuscular HGB Conc 33.7 g/dL (29.9-35.2); Mean Corpuscular Hemoglobin 30.6 pg (26.7-34.0); Mean Corpuscular Volume 90.9 fL (81.0-99.0); Mean Platelet Volume 11.1 fL (9.5-13.5); Monocytes Absolute Auto 0.5 10^3/uL (0.3-0.8); Monocytes Percent Auto 10.1 % (1.7-12.0); Neutrophils Absolute Auto 2.7 10^3/uL (1.4-6.5); Neutrophils Percent Auto 51.3 % (43.0-75.0); Platelet Count 198 10^3/uL (150-450); Red Cell Distribution Width 12.3 % (11.0-15.0); White Blood Count 5.2 10^3/uL (4.0-11.0)
[2022-09-23] MEDS: HYOSCYAMINE SULFATE 0.125 MG TAB.SUBL 0.25 MG SL (06:31)
[2022-09-23] MEDS: ESCITALOPRAM 10 MG TABLET PO (08:27)
--- NOTE | 2022-09-23 09:04 | CT_ITS ---
[address] [address] Patient Name: DENISHA OWEN MRN: [id number] date: 1980 Sex: F Assigned Patient Location: MS Current Patient Location: Accession/Order Number: [id number] Exam Date: 09/23/2022 11:18 Report Date: 09/23/2022 11:58 At the request of: HUSSEIN NOLAND Procedure: CT abdomen pelvis w con EXAMINATION: CT abdomen pelvis w con HISTORY: RLQ tenderness COMPARISON: CT abdomen pelvis 10/03/2022 TECHNIQUE: Axial, Coronal, and Sagittal images were obtained without and/or with IV contrast as indicated by examination type. Dose reduction techniques were achieved by using automated exposure control and/or adjustment of mA and/or kV according to patient size and/or use of iterative reconstruction technique. FINDINGS: LUNG BASES: No visible pulmonary or pleural disease. LIVER: No enlargement, atrophy, suspicious density, or significant focal lesion. BILIARY: Cholecystectomy. PANCREAS: No lesion, fluid collection, or abnormal duct dilatation. SPLEEN: No enlargement or focal lesion. ADRENALS: No mass or enlargement. KIDNEYS: No mass, obstruction, or calcification. BOWEL/MESENTERY: Tip of the appendix is 10 mm diameter without abnormal wall thickening or surrounding inflammatory changes. Mid aspect of the appendix shows mild circumference wall thickening of 4 mm, but no surrounding inflammatory changes or obstruction. Oral contrast partially fills the appendix. Unremarkable stomach, small bowel, and colon.. AORTA/VASCULAR: No aneurysm or dissection. RETROPERITONEUM: No mass or adenopathy. LYMPH NODES: No adenopathy. URINARY BLADDER: No visible focal wall thickening, lesion, or calculus. PELVIC ORGANS: Irregular, rim-enhancing ovarian cyst bilaterally and small amount of free fluid within the pelvic cul-de-sac; increased since prior study. Hysterectomy. ABDOMINAL WALL: No mass or hernia. BONES: No bony lesion or fracture. OTHER: Negative. CT/CT abdomen pelvis w con IMPRESSION: 1.Suspect rupture of bilateral ovarian cysts which likely account for the free fluid within the pelvic cul-de-sac, and may account for patient's symptoms. 2.Mildly dilated tip of the appendix and mild wall thickening of the mid length of the appendix, but no obstruction of the lumen or surrounding inflammatory changes. Appearance has not significantly changed. Electronically authenticated by: LIS ONEAL Date: 09/23/2022 11:58
--- NOTE | 2022-09-23 09:06 | P.DS_ITS ---
DS: Providers Provider Date of admission: 09/22/22 13:37 Primary care physician: Non-Staff Physician, Consults: 09/21/22 13:15 Consult to General Surgeon Routine Consulting Provider: Mathieu Dawson DS: Diagnosis Discharge Diagnosis (1) Abdominal pain: (2) Bulging lumbar disc: (3) History of cholecystectomy: Plan Sinus tachycardia, acute abdominal pain, dehydration Cervical disc disease- Anxiety and depression Iron def anemia - doubt acute blood loss - likely higer than normal on admission and now at baseline - check stool for occ blood DS: Summary Hospital Course Hospital Course: Pt admitted with possuible acute appendicitis based on CT - finding on exam not consistent - tried to send home yesterady pain bcame woerse -0 emesis -0 unable to tolerate diet - checked CT this am - 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 - pain betert - eating well - discharg to home in impr oving condition - meds see list - 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 Status at Discharge Functional status at discharge: independent ambulation Time Spent with Patient Time attestation: Total time spent providing and/or coordinating discharge services: Exam Constitutional Vital Signs, click to edit/add: Last Vital Signs Temp 97.9 F 09/23/22 04:49 Pulse 50 L 09/23/22 04:49 Resp 18 09/23/22 04:49 BP 106/69 09/23/22 04:49 Pulse Ox 95 09/23/22 04:49 O2 Del Method Room Air 09/23/22 04:49 Lymph Lymphatic: no lymphadenopathy noted Chest Common normals: inspection of chest normal Respiratory Common normals: normal respiratory effort Cardio Common normals: no JVD GI Palpation: tender (P[place] RLQ -would say is better brt still present) Common normals: no CVA tenderness DS: Data Data Completed and Pending Labs on day of discharge: Labs from last 24 hours 09/23/22 04:26 WBC 5.2 RBC 3.40 L Hgb 10.4 L Hct 30.9 L MCV 90.9 MCH 30.6 MCHC 33.7 RDW 12.3 Plt Count 198 MPV 11.1 Neut % (Auto) 51.3 Lymph % (Auto) 36.4 [place] % (Auto) 10.1 Eos % (Auto) 1.4 Baso % (Auto) 0.6 Neut # (Auto) 2.7 Lymph # (Auto) 1.9 [place] # (Auto) 0.5 Eos # (Auto) 0.1 Baso # (Auto) 0.0 Abs Immat Gran (auto) 0.01 Imm/Tot Granulo (auto) 0.2 Sodium 141 Potassium 3.9 Chloride 110 H Carbon Dioxide 24.9 Anion Gap 10.0 BUN 11.0 Creatinine 0.82 Est GFR ( Amer) >60 Est GFR (Non-Af Amer) >60 BUN/Creatinine Ratio 13.4 Glucose 93 Calcium 7.9 L Total Bilirubin 0.4 AST 10 L ALT 15 Alkaline Phosphatase 26 L C-Reactive Protein 1.1 H Total Protein 5.4 L Albumin 2.8 L Globulin 2.6 Albumin/Globulin Ratio 1.1 Lipase 45.0 L Discharge Plan Discharge Disposition: Home, Self-Care Discharge Medications: New hyoscyamine sulfate 0.125 mg Tablet, Sublingual 0.25 mg sublingual Q6H Qty: 20 0RF cefdinir 300 mg capsule 600 mg PO DAILY 10 Days Qty: 20 0RF metronidazole 500 mg tablet 500 mg PO Q8H 14 Days Qty: 42 0RF Continued escitalopram oxalate 10 mg tablet 10 mg PO DAILY tizanidine 4 mg tablet 4 mg PO Q12H PRN (Reason: muscle spasticity) Activity: resume usual activities as tolerated Diet: advance to your usual diet Patient Instructions: Hyoscyamine (By mouth), Metronidazole (By mouth), Cefdinir (By mouth), Ovarian Cyst (DC), Abdominal Pain (DC), Ruptured Ovarian Cyst (DC) Forms: Portal Instructions Follow Up Appointments: Follow up appointments: Dr. Katerine Palmer on October 01 @ 10am [address] [place], [place] [phone] Call to schedule an appointment with Dr. Castaneda within 7-14 days. [phone] Discharge Date/Time: 09/23/22 13:36
--- NOTE | 2022-09-23 09:21 | CM.NOTE ---
Rounds made with Dr. Ellsworth, pt continues with abdominal discomfort that increases with palpation. Dr. Ellsworth ordering repeat CT scan.
[2022-09-23 12:06] VITALS: O2SAT 98
--- NOTE | 2022-09-24 16:07 | CM.DCFOLLOWU ---
Person spoke with:patient How are you feeling? good How is your pain? no pain, took tylenol Did you understand your discharge instructions? yes Do you have any questions about your discharge instructions? no Were you given any prescriptions at discharge? yes Were you able to get your prescriptions filled? yes Do you understand how to take your medications as ordered? yes Do you have any questions about your follow up appointment and do you plan to keep your follow up appointment? no questions, follow up with PCP on October 01, called and scheduled follow up with Finn Castaneda Is there anything else that you would like to discuss? no Questions/Comments/Concerns/Other:
== END 2022-09-23 13:36 | disposition home or self-care (01) ==
LOC: ER 12:16 → ICU 12:37 → MS 09-22 13:37
PROVIDERS: Admitting Provider Family Medicine; Emergency Provider Emergency Medicine; Visit Provider Family Medicine
DX: R10.9 Unspecified abdominal pain (principal); E86.0 Dehydration; M50.90 Cervical disc disorder, unspecified, unspecified cervical region; M51.36 Other intervertebral disc degeneration, lumbar region; Z90.49 Acquired absence of other specified parts of digestive tract; F41.9 Anxiety disorder, unspecified; F32.A Depression, unspecified; D50.9 Iron deficiency anemia, unspecified; Z90.710 Acquired absence of both cervix and uterus; Z90.79 Acquired absence of other genital organ(s); F17.290 Nicotine dependence, other tobacco product, uncomplicated; F12.90 Cannabis use, unspecified, uncomplicated; Z79.899 Other long term (current) drug therapy
CPT/HCPCS: 36415; 74177; 80053; 81001; 81003; 82150; 83605; 83690; 85025; 86140; 87086; 87493; 87507; 93005; 94667; 94668; 94761; 96361; 96365; 96366; 96367; 96368; 96375; 96376; 99285; G0328; G0378; Q9966; Q9967

== ENCOUNTER 2022-10-10 16:38 | Outpatient (OUT) | payer BC, SELFPAY ==
--- NOTE | 2022-10-10 16:42 | US_ITS ---
The [address] [address] Patient Name: DENISHA OWEN MRN: [id number] date: 1980 Sex: F Assigned Patient Location: Current Patient Location: Accession/Order Number: [id number] Exam Date: 10/10/2022 16:55 Report Date: 10/11/2022 06:53 At the request of: KHRIS SÁNCHEZ Procedure: US pelvis w/ transvaginal EXAMINATION: US pelvis w/ transvaginal HISTORY: Corpus Luteum Cyst, N83.10 COMPARISON: CT abdomen pelvis 09/23/2022 TECHNIQUE: Transabdominal and/or transvaginal sonographic examination was performed as indicated by examination type. FINDINGS: UTERUS: Hysterectomy. RIGHT OVARY: Contains a benign-appearing 1.2 cm cyst versus dominant follicle. Duplex Doppler demonstrates normal waveform and flow; resistive index 0.6. Ovary size: 2.6 x 1.9 x 1.8 cm LEFT OVARY: Contains a 2.0 cm benign-appearing cyst. Duplex Doppler demonstrates normal waveform and flow; resistive index 0.4. Ovary size: 3.4 x 2.0 x 1.8 cm. CUL-DE-SAC: Unremarkable. No significant free fluid. BLADDER: Unremarkable. OTHER: None. US/US pelvis w/ transvaginal IMPRESSION: 1. Prior hysterectomy. 2. Incidental cysts within both ovaries. No suspicious findings. Electronically authenticated by: LIS ONEAL Date: 10/11/2022 06:53
== END 2022-10-10 16:39 | disposition home or self-care (01) ==
LOC: US 16:38
PROVIDERS: Visit Provider Obstetrics & Gynecology
DX: N83.10 Corpus luteum cyst of ovary, unspecified side (principal); Z90.710 Acquired absence of both cervix and uterus
CPT/HCPCS: 76830; 76856

== ENCOUNTER 2023-03-03 15:26 | Outpatient (OUT) | payer BC, SELFPAY ==
--- NOTE | 2023-03-03 15:29 | MR_ITS ---
[address] [address] Patient Name: DENISHA OWEN MRN: [facility]:[id number] date: 1980 Sex: F Assigned Patient Location: MRI Current Patient Location: MRI Accession/Order Number: [id number] Exam Date: 03/03/2023 15:40 Report Date: 03/03/2023 16:56 At the request of: NADEGE ZAMARRIPA Procedure: MR lumbar spine wo con EXAM: MR lumbar spine wo con HISTORY: Lumbar Radiculopathy M54.16 COMPARISON: CT abdomen 09/23/2022. TECHNIQUE/PROTOCOL: Noncontrast lumbar spine MR protocol (Sagittal T1, T2, STIR and axial T1, T2 sequences). FINDINGS: Five lumbar-type vertebral bodies with maintained heights. There is mild retrolisthesis of L5 on S1. Mild exaggeration of lumbar lordosis is noted. The bone marrow signal intensity appears age appropriate. Moderate decreased disc height, Modic type II endplate changes and disc desiccation at L5-S1 level. There are multilevel mild marginal spurring. No acute prevertebral or paraspinal soft tissue abnormalities. Conus terminates at L1-2 level. Visualized distal spinal cord and the cauda equina are morphologically normal. Tarlow cysts are seen at S2-3 levels. T12-L1: There is a very small central disc protrusion. No high-grade spinal canal or foraminal narrowing. L1-L2: There is a very small central disc protrusion. No high-grade spinal canal or foraminal narrowing. L2-L3: No disc bulge or herniation. No high-grade spinal canal or foraminal narrowing. L3-L4: No disc bulge or herniation. No high-grade spinal canal or foraminal narrowing. L4-L5: No disc bulge or herniation. No high-grade spinal canal or foraminal narrowing. L5-S1: Mild diffuse disc bulge superimposed with small right paracentral disc protrusion. Moderate decreased disc height and disc desiccation No high-grade spinal canal narrowing. Bilateral mild neural foraminal narrowing. MR/MR lumbar spine wo con IMPRESSION: Lumbar spondylosis, most prominent at L5-S1 level, as described. No significant spinal canal narrowing. Mild bilateral neural foraminal narrowing at L5-S1 levels. Mild retrolisthesis of L5 on S1. Electronically authenticated by: RADHA ALVES Date: 03/03/2023 16:56
== END 2023-03-03 15:27 | disposition home or self-care (01) ==
LOC: MRI 15:26
PROVIDERS: PCP Student in an Organized Health Care Education/Training Program; Visit Provider Nurse Practitioner Family
DX: M54.16 Radiculopathy, lumbar region (principal); R29.2 Abnormal reflex; M47.816 Spondylosis without myelopathy or radiculopathy, lumbar region
CPT/HCPCS: 72148

== ENCOUNTER 2023-05-15 07:50 | Observation (INO) | payer BC, SELFPAY ==
[2023-05-15] VITALS (14 sets, daily range): BP systolic 97–117; BP diastolic 60–77; PULSE 71–96; RESP 16–22; TEMP 36.3–36.8; O2SAT 91–100; BMI 26.6; BMI 26.7
--- OUTSIDE RECORDS SUMMARY | 2023-05-15 07:58 | XMS_ITS | CCD ---
Author Name Unknown Address [address] [place] [address] Organization [facility] Care Team Providers Care Tube Worker Name Role Phone DR MEEK BAHENA Admitting Unavailable JOSEF, DR EDEN Primary Care Unavailable JOSEF, DR EDEN Consulting Unavailable JOSEF, DR EDEN Attending Unavailable HOLLEY WARREN Consulting Unavailable Katerine Palmer Primary Care Physician Janeth Savage Unavailable Unavailable Jeovanny Garcia Attending Unavailable Richie Ross Attending Unavailable Mathieu JOSHI Attending Unavailable Jeovanny Garcia Attending Unavailable Medications Current Medications Medication Drug Class(es) Dates Sig (Normalized) Sig (Original) acetaminophen 325 mg / HYDROcodone bitartrate 5 mg oral tablet (9 sources) Opioid Agonist Start: 06-18-2013 take 1 tablet by mouth every four hours as needed for pain Nageezi 5/325 Tab 1 tab(s), Oral, q4hr as needed for pain, Refill(s) 0 Start Date: 06/18/13 Status: Ordered Start: 06-12-2013 Nageezi 325 mg-5 mg oral tablet 1 tab(s), Oral, q4hr for pain, 20 tab(s), Refill(s) 0 Start Date: 06/18/13 Status: Ordered dicyclomine hydrochloride 20 mg oral tablet (1 source) Anticholinergic Start: 10-26-2022 End: 11-02-2022 take 1 tablet by mouth three times daily dicyclomine 20 mg Tab 20 mg = 1 tab(s), Oral, TID, X 7 day(s), # 21 tab(s), Refills(s) 0, Pharmacy: [facility]/pharmacy #[id number], 170, cm, 10/26/22 17:15:00 EDT, Height/Length Dosing, 75, kg, 10/26/22 17:15:00 EDT, Weight Dosing Start Date: 10/26/22 Stop Date: 11/02/22 Status: Ordered Lexapro (3 sources) Serotonin Reuptake Inhibitor Start: 02-21-2021 Lexapro Oral, Daily, Refills(s) 0 Start Date: 02/21/21 Status: Ordered Pepcid (6 sources) Histamine-2 Receptor Antagonist Start: 06-18-2013 take 1 tablet by mouth once daily Pepcid 1 tablet, Oral, Daily, Refills(s) 0, Indigestion Start Date: 06/18/13 Status: Ordered Start: 06-12-2013 take 1 tablet by rock th once daily at bedtime Pepcid 40 mg Tab 40 mg = 1 tab(s), Oral, Once a day (at bedtime), # 20 tab(s), Refills(s) 0, 0, Print Requisition Start Date: 06/12/13 Status: Ordered promethazine hydrochloride 25 mg oral tablet (6 sources) Phenothiazine Start: 06-12-2013 take 25 mg by mouth every six hours as needed for nausea Phenergan 25 mg, Oral, q6hr, PRN Nausea, Refills(s) 0 Start Date: 06/18/13 Status: Ordered Sertraline (6 sources) Serotonin Reuptake Inhibitor Start: 08-19-2018 sertraline Oral, Daily, Refills(s) 0 Start Date: 08/19/18 Status: Ordered Start: 07-01-2010 Zoloft 100 mg Tab 50 mg = 0.5 tab(s), Oral, Daily, TAKING ONLY 50 MG, tab(s), Refills(s) 0 Start Date: 07/01/10 Status: Ordered Ventolin HFA 90 mcg/inh Aerosol (3 sources) Start: 02-24-2021 take 2 puff(s) by inhalation four times daily for wheezing Ventolin HFA 90 mcg/inh Aerosol 2 puff(s), Inhalation, QID for wheezing, 18 gram, Refill(s) 0, [facility]/pharmacy #[id number], 169, cm, 02/21/21 18:22:00 EST, Height/Length Dosing, 73, kg, 02/21/21 18:22:00 EST, Weight Dosing Start Date: 02/24/21 Status: Ordered Completed/Discontinued Medications Medication Drug Class(es) Dates Sig (Normalized) Sig (Original) ondansetron 4 mg oral tablet (4 sources) Serotonin-3 Receptor Antagonist Start: 10-26-2022 take 1 tablet by mouth every six hours as needed for nausea Zofran 4 mg Tab 4 mg = 1 tab(s), Oral, q6hr, PRN Nausea, Take one tab by mouth every six hours as needed for nausea, # 10 tab(s), Refills(s) 0, Pharmacy: [facility]/pharmacy #[id number], 170, cm, 10/26/22 17:15:00 EDT, Height/Length Dosing, 75, kg, 10/26/22 17:15:00 EDT, Weight D... Start Date: 10/26/22 Status: Ordered Start: 08-19-2018 ondansetron BI D, Refills(s) 0 Start Date: 08/19/18 Status: Ordered Problems Active Problems Problem Classification Problem Date Documented Date Episodic/Chronic Abdominal pain (2 sources) Pelvic and perineal pain; Translations: [Abdominal pain] Onset: 09-10-2019 Episodic Biliary tract disease (3 sources) Biliary dyskinesia 06-17-2013 Episodic Endometriosis (4 sources) Endometriosis of uterus; Translations: [Endometriosis of fallopian tube] Onset: 09-10-2019 05-28-2013 Chronic Fracture of lower limb (1 source) Closed fracture of shaft of fibula; Translations: [Unspecified fracture of shaft of unspecified fibula, initial encounter for closed fracture] Onset: 02-04-2022 Episodic Menstrual disorders (1 source) Excessive and frequent menstruation with irregular cycle; Translations: [EXCESS AND FREQ MEN W/IRREG CYCLE] Onset: 09-10-2019 Chronic Mood disorders (3 sources) Depression 05-28-2013 Chronic Nonspecific chest pain (1 source) Chest pain; Translations: [Chest pain, unspecified] Onset: 04-26-2022 Episodic Other female genital disorders (4 sources) Abnormal uterine and vaginal bleeding, unspecified; Translations: [ABNORMAL UTERINE VAGINAL BLEED UNS] Onset: 09-06-2019 Chronic Other injuries and conditions due to external causes (1 source) Injury of left ankle; Translations: [Unspecified injury of left ankle, initial encounter] Onset: 02-04-2022 Episodic Substance-related disorders (4 sources) Nicotine dependence, cigarettes, uncomplicated; Translations: [Smoker] Onset: 09-10-2019 04-10-2021 Chronic Comment on above: Added secondary to d ocumentation in Social History. Past or Other Problems Problem Classification Problem Date Documented Date Episodic/Chronic Benign neoplasm of uterus (1 source) Leiomyoma of uterus, unspecified; Translations: [LEIOMYOMA OF UTERUS UNSPECIFIED] Onset: 09-10-2019 Episodic Other female genital disorders (1 source) Other noninflammatory disorders of ovary, fallopian tube and broad ligament; Translations: [OTH NONINFL D/O OVARY TUBE AND BRD LIG] Onset: 09-10-2019 Episodic Results Test Name Value Interpretation Reference Range Facility RAD - Preliminary Cat Scan R eporton 10-27-2022 RAD - Preliminary Cat Scan Report [id number] .[id number]:127 Normal [facility] Auto Diffon 10-26-2022 Basophils/100 WBC (Bld) 0.6 % Normal 0.0-2.0 [facility] Comment on above: Order Comment: Order Added by Discern Expert. Performed By: #### 2 788054, 6755826, 8721742, 32161369, 2400150, 9412069, 0470040 ####[facility] [address] [place] [address] Basophils/Leukocytes Auto (Bld) [Pure # fraction] 0.0 E9/L Normal 0.0-0.2 [facility] Comment on above: Order Comment: Order Added by Discern Expert. Performed By: #### 2 588507, 5763069, 7165979, 97099296, 5940649, 7312276, 6203204 ####[facility] [address] [place] [address] Eosinophils/100 WBC (Bld) 0.7 % Normal 0.0-8.0 [facility] Comment on above: Order Comment: Order Added by Discern Expert. Performed By: #### 2 705214, 4651426, 9564604, 31687897, 8718171, 4547359, 6497303 ####[facility] [address] [place] [address] Eosinophils/Leukocytes Auto (Bld) [Pure # fraction] 0.1 E9/L Normal 0.0-0.5 [facility] Comment on above: Order Comment: Order Added by Discern Expert. Performed By: #### 2 381535, 4638174, 2137414, 39921267, 7080534, 8988521, 9312927 ####[address] [place] [address] Lymphocytes/100 WBC (Bld) 37.5 % Normal 14.0-50.0 [facility] Comment on above: Order Comment: Order Added by Discern Expert. Performed By: #### 2 292319, 9620253, 1504859, 84657614, 6912653, 2850330, 8804830 ####[address] [place] [address] Lymphocytes/Leukocytes Auto (Bld) [Pure # fraction] 2.8 E9/L Normal 1.0-4.0 [facility] Comment on above: Order Comment: Order Added by Discern Expert. Performed By: #### 2 421384, 7181350, 8408692, 95367396, 3471789, 1628988, 7298429 ####[address] [address] Monocytes/100 WBC (Bld) 7.3 % Normal 4.0-14.0 [facility] Comment on above: Order Comment: Order Added by Discern Expert. Performed By: #### 2 366338, 1032701, 3457595, 37814839, 8009816, 6514961, 8375256 ####[facility] [address] [place] [address] Monocytes/Leukocytes Auto (Bld) [Pure # fraction] 0.6 E9/L Normal 0.2-1.0 [facility] Comment on above: Order Comment: Order Added by Cristofer Expert. Performed By: #### 2 716754, 6057400, 8396279, 78125513, 6507009, 4871214, 1608518 ####[address] [place] [address] Neutrophils/100 WBC (Bld) 53.9 % Normal 36.0-75.0 [facility] Comment on above: Order Comment: Order Added by Discern Expert. Performed By: #### 2 063998, 2272112, 6061493, 01509318, 3262718, 7895597, 4530035 ####[facility] [address] [place] [address] Neutrophils/Leukocytes Auto (Bld) [Pure # fraction] 4.1 E9/L Normal 2.0-7.5 [facility] Comment on above: Order Comment: Order Added by Discern Expert. Performed By: #### 2 026889, 0501502, 5275152, 36000433, 7799981, 7142991, 4779936 ####[facility] [address] [place] [address] BMPon 10-26-2022 Creatinine [Mass/Vol] 0.8 mg/dL Normal 0.5-1.3 [facility] Comment on above: Performed By: #### 2 326066, 7867847, 3443212, 06742908, 6801100, 5975710, 0167001 ####[facility] [address] [place] [address] Urea nitrogen [Mass/Vol] 8 mg/dL Normal 5-21 [facility] Comment on above: Performed By: #### 2 126727, 2376408, 2916686, 86943520, 5664555, 1145776, 7348205 ####[facility] [address] [place] [address] Urea nitrogen/Creatinine [Mass ratio] 10 No Units Normal 10-20 [facility] Comment on above: Performed By: #### 2 775734, 1554483, 8045458, 49817214, 0846542, 0885178, 7402599 ####[facility] [address] [place] [address] Anion gap [Moles/Vol] 10 mmol/L Normal 6-16 [facility] Comment on above: Performed By: #### 2 665431, 9001303, 6401932, 31963856, 8206670, 2833273, 1179240 ####[facility] [address] [place] [address] Calcium [Mass/Vol] 8.9 mg/dL Normal 8.9-11.1 [facility] Comment on above: Performed By: #### 2 430150, 9322145, 8292476, 15253138, 5528842, 0937870, 9159526 ####[facility] [address] [place] [address] Chloride [Moles/Vol] 105 mmol/L Normal 101-111 [facility] Comment on above: Performed By: #### 2 426116, 8496819, 9310036, 00308862, 7903000, 6556595, 7749295 ####[facility] [address] [place] [address] CO2 [Moles/Vol] 24 mmol/L Normal 21-[address] [facility] Comment on above: Performed By: #### 2 598811, 6729553, 0294609, 85314999, 9935315, 7227511, 2587920 ####[facility] [address] [place] [address] Glucose [Mass/Vol] 93 mg/dL Normal 55-199 [facility] Comment on above: Result Comment: If t his glucose result represents a fasting glucose, interpretation should refer to the following reference range: 55-99 mg/dL Performed By: #### 2 559576, 1540650, 4584461, 19484355, 6917018, 6758466, 0670691 ####[facility] [address] [place] [address] Potassium [Moles/Vol] 3.2 mmol/L Low 3.5-5.3 [facility] Comment on above: Performed By: #### 2 616414, 0242387, 2562603, 19384695, 2854770, 6370400, 7012826 ####[facility] [address] [place] [address] Sodium [Moles/Vol] 136 mmol/L Normal 135-145 [facility] Comment on above: Performed By: #### 2 782260, 8056849, 6320823, 30797202, 9922233, 8666648, 8831567 ####[facility] [address] [place] [address] CBC w/ Auto Diffon 3 Erythrocyte distribution width (RBC) [Ratio] 13.2 % Normal 10.9-14.2 [facility] Comment on above: Performed By: #### 2 838807, 5110544, 1219713, 19094677, 8553469, 7933598, 9787923 ####[facility] [address] [place] [address] Hematocrit (Bld) [Volume fraction] 38.9 % Normal 34.0-46.0 [facility] Comment on above: Performed By: #### 2 614032, 1817510, 7671018, 55594264, 7097397, 9352062, 0930775 ####[facility] [address] [place] [address] Hemoglobin (Bld) [Mass/Vol] 13.0 g/dL Normal 12.0-16.0 [facility] Comment on above: Performed By: #### 2 632319, 1063118, 9943081, 64797388, 1730537, 3471706, 2101571 ####[facility] [address] [place] [address] MCH (RBC) [Entitic mass] 29.2 pg Normal 27.0-34.0 [facility] Comment on above: Performed By: #### 2 861116, 1025815, 3138473, 32887790, 3597431, 7372755, 4508581 ####[facility] [address] [place] [address] MCHC (RBC) [Mass/Vol] 33.4 g/dL Normal 31.4-36.0 [facility] Comment on above: Performed By: #### 2 624443, 2339052, 0617505, 18666168, 6223211, 1106331, 5373778 ####[address] [place] [address] MCV (RBC) [Entitic vol] 87.3 fL Normal 80.0-100.0 [facility] Comment on above: Performed By: #### 2 119853, 5908952, 3768958, 79864820, 4942302, 3067249, 0735792 ####[address] [address] Platelet mean volume (Bld) [Entitic vol] 7.8 fL Normal 6.4-10.8 [facility] Comment on above: Performed By: #### 2 748851, 7885978, 1779301, 72387814, 2584191, 0193749, 5214583 ####[address] [address] Platelets (Bld) [#/Vol] 282.0 E9/L Normal 150.0-500.0 [facility] Comment on above: Performed By: #### 2 987509, 0453835, 9663019, 48199934, 8744517, 9967140, 5094389 ####[address] [address] RBC (Bld) [#/Vol] 4.4 E12/L Normal 4.3-5.9 [facility] Comment on above: Performed By: #### 2 620228, 8980076, 1105359, 30881566, 9252091, 1154338, 6633283 ####[address] [address] WBC corrected for nucl RBC Auto (Bld) [#/Vol] 7.6 E9/L Normal 4.0-11.[address] [facility] Comment on above: Performed By: #### 2 033095, 5860973, 4495898, 63648863, 6437909, 4651672, 1796967 ####[facility] [address] [place] [address] CHEMISTRYOrdered By: SYSTEM SYSTEM on 10-26-2022 Albumin [Mass/Vol] 4.0 g/dL Normal 3.3 - 5.0 gm/dL [facility] Albumin/Globulin [Mass ratio] 1.4 {ratio} Normal 1.1 - 2.2 [facility] ALP [Catalytic activity/Vol] 31 [iU]/d Normal 21 - 98 Int._Unit/L [facility] ALT No additional P-5'-P [Catalytic activity/Vol] 12 [iU]/d Normal 6 - 46 Int._Unit/L [facility] Anion gap [Moles/Vol] 10 mmol/L Normal 6 - 16 mEq/L [facility] AST [Catalytic activity/Vol] 16 [iU]/d Normal 5 - 43 Int._Unit/L [facility] Bilirubin [Mass/Vol] 0.7 mg/dL Normal 0.0 - 1 .1 mg/dL [facility] Bilirubin.direct [Mass/Vol] 0.1 mg/dL Normal 0.1 - 0.4 mg/dL [facility] Bilirubin.indirect [Mass or moles/Vol] 0.6 mg/dL Normal 0.1 - 0.9 mg/dL [facility] Calcium [Mass/Vol] 8.9 mg/dL Normal 8.9 - 11. 1 mg/dL [facility] Chloride [Moles/Vol] 105 mmol/L Normal 101 - 1 11 mmol/L [facility] CO2 [Moles/Vol] 24 mmol/L Normal 21 - 31 mmol/L [facility] Creatinine [Mass/Vol] 0.8 mg/dL Normal 0.5 - 1.3 mg/dL [facility] GFR/1.73 sq M.predicted among non-blacks MDRD (S/P/Bld) [Vol rate/Area] 93 mL/min/1.73 m2 Normal >=59mL/min/1 .73 m2 [facility] S Globulin (S) [Mass/Vol] 2.8 g/dL Normal 1.4 - 4.0 gm/dL [facility] Glucose [Mass/Vol] 93 mg/dL Normal 55 - 199 mg/dL [facility] Lactate [Mass/Vol] 0.9 mmol/L Normal 0.5 - 2.2 mmol/L [facility] Lipase [Catalytic activity/Vol] 24 U/L Normal 13 - 58 unit/L [facility] Potassium [Moles/Vol] 3.2 mmol/L Low 3.5 - 5.3 mmol/L [facility] Protein [Mass/Vol] 6.8 g/dL Normal 6.0 - 7.8 gm/dL [facility] Sodium [Moles/Vol] 136 mmol/L Normal 135 - 145 mmol/L [facility] Urea nitrogen [Mass/Vol] 8 mg/dL Normal 5 - 21 mg/dL [facility] Urea nitrogen/Creatinine [Mass ratio] 10 mg/mg Normal 10 - [address] Abdomen/Pelvis w/ Contras ton 10-26-2022 CT Abdomen/Pelvis w/ Contrast Exam Date/Time: 10/26/2022 18:01 EDT Reason for Exam: Abdominal pain, acute, nonlocalized;Other (please specify) Report IMPRESSION: NO ACUTE ABDOMINOPELVIC PROCESS. EXAM: CT Abdomen/Pelvis w/ Contrast History: Right lower quadrant pain. Nausea. Technique: Multiple contiguous axial images were obtained of the abdomen and pelvis from the level of the lung bases through the ischial tuberosities with IV contrast. Multiplanar reformats were obtained. Delayed images were obtained. Comparison: None available Findings: Lung bases are clear. Postsurgical changes of cholecystectomy. The liver, stomach, pancreas, spleen, and adrenal glands are within normal limits. The kidneys enhance uniformly. A few tiny hypodensities of the right kidney are too small to definitively characterize. No urinary tract calculi or hydronephrosis. Urinary bladder is well distended. Tiny pelvic phleboliths noted. Uterus is absent. Abdominal aorta is nonaneurysmal. No retroperitoneal or abdominal/pelvic lymphadenopathy. No small bowel obstruction. No overt colonic mass or pericolonic inflammation. Appendix is within normal limits. No free fluid or free air. No acute osseous abnormality. Degenerative changes at L5-S1.. All CT scans at this facility use dose modulation, iterative reconstruction, and/or weight based dosing when appropriate to reduce radiation dose to as low as reasonably achievable. Report Ordering Provider: Jeovanny Garcia FINAL REPORT Dictated: 10/26/2022 6:08 pm Josh Fan DO Signed (Electronic Signature): 10/26/2022 6:08 pm Signed by: Josh Fan DO Transcribed by: NABIL Technologist: MONTEZ Technical Comments GFR (mL/min/1/73m2) na Contrast: Isovue 300 Contrast amount in ml's: 100 Normal [facility] Consent for Treatmenton 10-15 Consent for Treatment [id number] .[id number]:127 Normal [facility] Discharge Instructionson Discharge Instructions [id number]:127 Normal [facility] ED Clinical Summaryon 2022 ED Clinical Summary [place] [id number] ED Clinical Summary Person Information Name: DENISHA OWEN [facility] Age: 42 Years : 1980 Sex: Female Language: Algerian PCP: Katerine Palmer MD Marital Status: Visit Id: Visit Reason: Nausea; Abdominal pain; RT SIDE PAIN Speciality: Acuity: 3 Enc Type: Emergency Med Service: Emergency Arrival: 10/26/2022 17:06:43 Discharge: 10/26/2022 18:36:30 LOS: 000 01:30 Checkin: 10/26/2022 17:06:43 Checkout: 10/26/2022 18:36:30 Dispo Type: Home (Routine DC) EVENTS: Event Name Event Status Request Date/Time Start Date/Time Complete Date/Time Arrive Complete 10/26/2022 17:06:43 10/26/2022 17:06:43 10/26/2022 17:06:43 Document Home Meds Request 10/26/2022 17:06:43 Triage Complete 10/26/2022 17:06:43 10/26/2022 17:15:48 10/26/2022 17:15:48 Bed Assign Complete 10/26/2022 17:09:41 10/26/2022 17:09:41 10/26/2022 17:09:41 Dr Exam Complete 10/26/2022 17:09:41 10/26/2022 17:12:18 10/26/2022 17:12:18 RN Exam Complete 10/26/2022 17:09:41 10/26/2022 17:22:57 10/26/2022 17:22:57 Registration Complete 10/26/2022 17:12:18 10/26/2022 17:22:34 10/26/2022 17:22:34 Pending Labs Complete 10/26/2022 17:22:06 10/26/2022 17:56:17 Lab Complete 10/26/2022 17:22:06 10/26/2022 17:56:17 Urine Collect Complete 10/26/2022 17:22:06 10/26/2022 17:55:37 Patient Care Request 10/26/2022 17:22:06 CT Complete 10/26/2022 17:22:06 10/26/2022 17:43:26 10/26/2022 18:01:15 Reg Complete Request 10/26/2022 17:22:34 Reg Bed Request Complete 10/26/2022 17:22:34 10/26/2022 17:22:34 10/26/2022 17:22:34 Pending Labs Complete 10/26/2022 17:35:04 10/26/2022 17:35:04 10/26/2022 17:56:18 Lab Complete 10/26/2022 17:35:04 10/26/2022 17:35:04 10/26/2022 17:56:18 Pending Labs Complete 10/26/2022 17:41:07 10/26/2022 17:41:07 10/26/2022 17:41:08 Pending Labs Complete 10/26/2022 17:42:23 10/26/2022 17:42:23 10/26/2022 17:42:29 Lab Complete 10/26/2022 17:42:23 10/26/2022 17:42:23 10/26/2022 17:42:29 Discharge Complete 10/26/2022 18:14:14 10/26/2022 18:36:39 10/26/2022 18:36:39 Transfer Complete 10/26/2022 18:36:39 10/26/2022 18:36:39 10/26/2022 18:36:39 ADDRESS: [address] [place] [id number] PHYS DOC NOTES: MEDICAL INFORMATION: Prescriptions Given: New Medications [facility]/pharmacy #[id number], [address], [place] [phone], [phone] dicyclomine (dicyclomine 20 mg Tab) 1 Tablets By Mouth 3 times a day for 7 Days. Refills: 0. Medications to Continue Taking That Have Changed [facility]/pharmacy #[id number], [address], [place] [phone], [phone] START: ondansetron (Zofran 4 mg Tab) 1 Tablets By Mouth every 6 hours as needed Nausea. Take one tab by mouth every six hours as needed for nausea. Refills: 0. Other Medications START: ondansetron 2 times a day. Medications to Continue with No Changes Other Medications acetaminophen-hydroco done (Nageezi 5/325 Tab) 1 Tablets By Mouth every 4 hours as needed as needed for pain. acetaminophen-hydroco done (Nageezi 325 mg-5 mg oral tablet) 1 Tablets By Mouth every 4 hours as needed for pain. Refills: 0. acetaminophen-hydroco done (Nageezi 325 mg-5 mg oral tablet) 1 Tablets By Mouth every 4 hours as needed for pain. Refills: 0. albuterol (Ventolin HFA 90 mcg/inh Aerosol) 2 Puffs Inhalation 4 times a day as needed for wheezing. Refills: 0. escitalopram (Lexapro) By Mouth every day. famotidine (Pepcid 40 mg Tab) 1 Tablets By Mouth once a day (at bedtime). Refills: 0. famotidine (Pepcid) 1 tablet By Mouth every day. promethazine (Phenergan 25 mg Tab) 1 Tablets By Mouth every 6 hours. Take one by mouth every six hours for nausea and vomiting. Refills: 0. promethazine (Phenergan) 25 Milligram By Mouth every 6 hours as needed Nausea. sertraline By Mouth every day. sertraline (Zoloft 100 mg Tab) 0.5 Tablets By Mouth every day. TAKING ONLY 50 MG. PATIENT EDUCATION INFORMATION: Instructions: Follow up: With: Address: When: Leland Ford [address], [address], [facility] [address] [place] [phone] Business (1) In 3 days 10/29/2022 With: Address: When: Katerine Palmer [address] [place] [address] Business (1) In 3 days DIAGNOSIS: Abdominal pain Normal [facility] ED Note-Physicianon 10-27-19 ED Note-Physician Basic Information Time Seen: Jeovanny Garcia DO 10/26/2022 17:12 Chief Complaint RLQ pain, nauseated. pt was admitted to hospital one month ago for appendix but was not removed. History of Present Illness 42 female presents emergency department with right-sided abdominal pain. Patient states this all began about 1 month ago. She developed right-sided abdominal pain was admitted to the hospital at [place]. There was some uncertainty as to what was causing her symptoms she tells me that she was diagnosed at 1 point with enlarged gallbladder, possible colitis, at some point they thought perhaps this was early appendicitis. She was started on antibiotics she believes for colitis. She was also diagnosed with ovarian cyst having had history of cholecystectomy as well as hysterectomy. She followed up with her [facility] physician and was told that the ovarian cysts are not contributing to her right lower quadrant pain. Patient states that she has been dealing with this over the last month and over the last couple of days this has become progressively worse. She would like to get checked to make sure this is not her appendix given that she has had this persistent right lower quadrant abdominal pain. She reports no chest pain difficulty breathing no cough no fevers no urinary symptoms no nausea vomiting or diarrhea. No other aggravating or relieving factors no other associated symptoms no other prior treatments or complaints. Family: Reviewed and noncontributory Social: lives at home Review of systems negative unless otherwise specified in the HPI. Physical Exam Vitals & Measurements T: 36.6 ?C(Oral) HR: 69(Peripheral) RR: 14 BP: 128/92 SpO2: 100% HT: 170 cm WT: 75 kg BMI: 25.95 General: The patient appears well and in no apparent distress. Patient is resting comfortably on cart. Skin: Warm, dry, no pallor noted. Head: Normocephalic, atraumatic Neck: No JVD Eye: PERRLA, EOMI ENT: Moist mucus membranes Cardiovascular: Regular rate normal peripheral perfusion Respiratory: No respiratory distress no accessory muscle use no obvious audible wheezing Chest Wall: no deformity Musculoskeletal: normal ROM, no deformity, no swelling GI: Soft no obvious distention. No rebound or rigidity. No guarding. Some mild right-sided tenderness palpation in the right lower quadrant and right upper quadrant as well. Negative Laws sign. Positive McBurney point. Neurological: A&O moves all extremities equal strength and symmetry Psychiatric: Cooperative and appropriate Medical Decision Making MEDICAL DECISION MAKING Number and Complexity of Problems Differential Diagnosis: MDM Data External documents reviewed: My EKG interpretation: in chart if applicable My CT interpretation: in chart if applicable My X-ray interpretation: in chart if applicable My Ultrasound interpretation: Decision rules/scores evaluated: Discussed with: Treatment and Disposition ED Course: Work-up in the ER has been reviewed and noted. CT read by the radiologist as no acute pathology. Etiology of the right lower quadrant abdominal pain over the last month or 2 not entirely clear at this time. Patient did have some degenerative changes on her lumbar spine so perhaps this is radicular pain. She will be treated with Bentyl as needed for pain follow-up in the outpatient setting she is given referral to GI in case needs any additional further work-up. Return to ER symptoms change worsen or recur. Shared decision making: Code status: Assessment/Plan Abdominal pain (R10.9: Unspecified abdominal pain) Orders: dicyclomine, 20 mg = 1 tab(s), Oral, TID, X 7 day(s), # 21 tab(s), Refills(s) 0, Pharmacy: [facility]/pharmacy #[id number], 170, cm, 10/26/22 17:15:00 EDT, Height/Length Dosing, 75, kg, 10/26/22 17:15:00 EDT, Weight Dosing ondansetron, 4 mg = 1 tab(s), Oral, q6hr, PRN Nausea, Take one tab by mouth every six hours as needed for nausea, # 10 tab(s), Refills(s) 0, Pharmacy: [facility]/pharmacy #[id number], 170, cm, 10/26/22 17:15:00 EDT, Height/Length Dosing, 75, kg, 10/26/22 17:15:00 EDT, Weight D... Automated Diff Basic Metabolic Panel CBC w/ Auto Diff CT Abdomen/Pelvis w/ Contrast eGFR Extra Blue Tube Extra SST Tube Hepatic Function Panel Lactic Acid Lipase Level Saline Lock Insert UA With Cult Reflex Disposition Plan Discharge Prescription List Prescriptions dicyclomine 20 mg Tab, 20 mg= 1 tab(s), Oral, TID Zofran 4 mg Tab, 4 mg= 1 tab(s), Oral, q6hr, PRN Follow-up With When Contact Information Hatram Ford In 3 days 10/29/2022 EDT 278 [facility] [address] [address]- [phone] Business (1) Additional Instructions: Katerine Palmer In 3 days [address] [place] [address]- Business (1) Additional Instructions: Problem List/Past Medical History Ongoing Biliary dyskinesia Smoker Historical Depression Endometriosis of fallopian tube Procedure/Surgical History laparoscopic cholecystectomy (06/18/2013), Laparosco (more content not included)... Normal [facility] Comment on above: Result Comment: Elec tronically Signed By: Jeovanny Garcia DO\.br\Date and Time Signed: 10/26/22 18:15 EDT ED Patient Education Noteon 10-26-2022 ED Patient Education Note Normal [facility] ED Patient Summaryon 023 ED Patient Summary [facility] [address] [place], [place] [address] Patient Discharge Instructions Person Information Name: DENISHA OWEN Age: 42 Years Arrival Date: 10/26/2022 17:06:43 Discharge Diagnosis: Abdominal pain Primary Care Physician: Katerine Palmer MD Provider Information Primary Provider: Jeovanny Garcia DO [place] Secretary:None The exam and treatment you received in the Emergency Department were for an urgent problem and are not intended as complete care. It is important that you follow up with a doctor, nurse practitioner, or physician?s communication assistant for ongoing care. If your symptoms become worse or you do not improve as expected and you are unable to reach your usual health care provider, you should return to the Emergency Department. We are available 24 hours a day. DENISHA OWEN has been given the following list of patient education materials, prescriptions and follow-up instructions: Follow-up Instructions: With: Address: When: Leland Sahilperi [address] [facility], [address], [facility] [address] [place] [address] [phone] Business (1) In 3 days 10/29/2022 With: Address: When: Katerine Palmer [address] [place] [address] Business (1) In 3 days In the event that this physician does not participate in your insurance network, please consult with your insurance company to find a nearby participating provider. Patient Education Materials: A MESSAGE TO ALL PATIENTS REGARDING OPIOIDS PRESCRIPTION OPIOIDS: WHAT YOU NEED TO KNOW Prescription opioids can be used to help relieve hdctybzq-jg-isgqkf pain and are often prescribed following a surgery or injury, or for certain health conditions. These medications can be an important part of the treatment but also come with serious risks. It is important to work with your healthcare provider to make sure you are getting the safest, most effective care. WHAT ARE THE RISKS AND SIDE EFFECTS OF OPIOID USE? Prescription opioids carry serious risks of addiction and overdose, especially with prolonged use. An opioid overdose, often marked by slowed breathing, can cause sudden . The use of prescription opioids can have a number of side effects as well, even when taken as directed: ? Tolerance?meaning you might need to take more of the medication for the same pain relief ? Physical dependence?meaning you have symptoms of withdrawal when a medication is stopped ? Increased sensitivity to pain ? Constipation ? Nausea, vomiting, and dry mouth ? Sleepiness and dizziness ? Confusion ? Depression ? Low levels of testosterone that can result in lower sex drive, energy, and strength ? Itching and sweating RISKS ARE GREATER WITH: ? History of drug misuse, substance use disorder, or overdose ? Mental health conditions (such as depression or anxiety) ? Sleep apnea ? Older age (65 years and older) ? Avoid alcohol while taking prescription opioids. Also, unless specifically advised by your health care provider, medications to avoid include: ? Benzodiazepines (such as Xanax or Valium) ? Muscle relaxants (such as Soma or Flexeril) ? Hypnotics (such as Ambien or Lunesta) ? Other prescription opioids KNOW YOUR OPTIONS Talk to your health care provider about ways to manage your pain that don?t involve prescription opioids. Some of these options may actually work better and have fewer risks and side effects. Options may include: ? Pain relievers such as acetaminophen, ibuprofen, and naproxen ? Some medication that are also used for depression or seizures ? Physical therapy and exercise ? Cognitive behavioral therapy, a psychological, goal-directed approach, in which patients learn how to modify physical, behavioral, and emotional triggers of pain and stress. IF YOU ARE PRESCRIBED OPIOIDS FOR PAIN: ? Never take opioids in greater amounts or more often than prescribed. ? Follow up with your primary health care provider. o Work together to create a plan on how to manage your pain. o Talk about ways to help manage your pain that don?t involve prescription opioids. o Talk about any and all concerns and side effects. ? Help prevent misuse and abuse o Never sell or share prescription opioids. o Never use another person?s prescription opioids. ? Store prescription opioids in a secure place and out of reach of others (this may include visitors, children, friends, and family). ? Safely dispose of unused prescription opioids: Find your community drug take-back program or your pharmacy mail-back program, or flush them down the toilet, following guidance from the Food and Drug Administration (www.fda.gov/Drugs/Re sourcesForYou). ? Visit www.cdc.gov/drugoverd ose to learn about the risks of opioids abuse and overdose. ? If you believe you may be struggling with addiction, tell your health home care attendant and a (more content not included)... Normal [facility] HEMATOLOGYOrdered By: SYSTEM SYSTEM on 10-26-2022 Basophils/100 WBC (Bld) 0.6 % Normal 0.0 - 2.0 % [facility] HemeAutoSS Basophils/Leukocytes Auto (Bld) [Pure # fraction] 0.0 E9/L Normal 0.0 - 0.2 E9/L [facility]eAuto[facility] Eosinophils/100 WBC (Bld) 0.7 % Normal 0.0 - 8.0 % [facility] HemeAutoSS Eosinophils/Leukocytes Auto (Bld) [Pure # fraction] 0.1 E9/L Normal 0.0 - 0.5 E9/L [facility] HemeAutoSS Lymphocytes/100 WBC (Bld) 37.5 % Normal 14.0 - 50.0 % [facility] HemeAutoSS Lymphocytes/Leukocytes Auto (Bld) [Pure # fraction] 2.8 E9/L Normal 1.0 - 4.0 E9/L [facility] HemeAutoSS Monocytes/100 WBC (Bld) 7.3 % Normal 4.0 - 14.0 % [facility] HemeAutoSS Monocytes/Leukocytes Auto (Bld) [Pure # fraction] 0.6 E9/L Normal 0.2 - 1.0 E9/L [facility] HemeAutoSS Neutrophils/100 WBC (Bld) 53.9 % Normal 36.0 - 75.0 % [facility] HemeAutoSS Neutrophils/Leukocytes Auto (Bld) [Pure # fraction] 4.1 E9/L Normal 2.0 - 7.5 E9/L [facility] HemeAutoSS HEMATOLOGYOrdered By: Portia Cherry on 10-26-2022 Erythrocyte distribution width (RBC) [Ratio] 13.2 % Normal 10.9 - 14.2 % [facility] HemeAutoSS Hematocrit (Bld) [Volume fraction] 38.9 % Normal 34.0 - 46.0 % [facility] HemeAutoSS Hemoglobin (Bld) [Mass/Vol] 13.0 g/dL Normal 12.0 - 16.0 gm/dL [facility] HemeAutoSS MCH (RBC) [Entitic mass] 29.2 pg Normal 27.0 - 34.0 pg [facility] HemeAutoSS MCHC (RBC) [Mass/Vol] 33.4 g/dL Normal 31.4 - 36.0 gm/dL [facility] HemeAutoSS MCV (RBC) [Entitic vol] 87.3 fL Normal 80.0 - 100.0 fL [facility] HemeAutoSS Platelet mean volume (Bld) [Entitic vol] 7.8 fL Normal 6.4 - 10.8 fL [facility] HemeAutoSS Platelets (Bld) [#/Vol] 282.0 E9/L Normal 150.0 - 500.0 E9/L [facility] HemeAutoSS RBC (Bld) [#/Vol] 4.4 E12/L Normal 4.3 - 5.9 E12/L [facility] HemeAutoSS WBC corrected for nucl RBC Auto (Bld) [#/Vol] 7.6 E9/L Normal 4.0 - 11.0 E9/L [facility] HemeAuto[facility] Hep Func Panelon 10-26-2022 Albumin [Mass/Vol] 4.0 g/dL Normal 3.3-5.0 [facility] Comment on above: Performed By: #### 2 026342, 9881119, 2667032, 80642706, 5930551, 1787702, 0420683 ####[facility] [address] [place] [address] Albumin/Globulin (S) [Mass conc ratio] 1.4 Normal 1.1-2.2 [facility] Comment on above: Performed By: #### 2 821301, 3112699, 3726686, 72631900, 3078717, 7829939, 2458565 ####[facility] [address] [place] [address] ALP [Catalytic activity/Vol] 31 Int._Unit/L Normal 21-98 [facility] Comment on above: Performed By: #### 2 393373, 8305617, 6175843, 08499613, 6685547, 8479535, 3183094 ####[facility] [address] [place] [address] ALT No additional P-5'-P [Catalytic activity/Vol] 12 Int._Unit/L Normal 6-46 [facility] Comment on above: Performed By: #### 2 103535, 3366399, 1628791, 35826869, 6321047, 6338150, 6133129 ####[facility] [address] [place] [address] AST [Catalytic activity/Vol] 16 Int._Unit/L Normal 5-43 [facility] Comment on above: Performed By: #### 2 750420, 9162518, 6171744, 59858125, 2602748, 7586172, 2508473 ####[facility] [address] [place] [address] Bilirubin [Mass/Vol] 0.7 mg/dL Normal 0.0-1.1 [facility] [place] Comment on above: Performed By: #### 2 864003, 1577053, 7689397, 60005298, 4153251, 7714670, 4908207 ####[address] [place] [address] Bilirubin.direct [Mass/Vol] 0.1 mg/dL Normal 0.1-0.4 [facility] Comment on above: Performed By: #### 2 533191, 1359199, 8368067, 80248762, 8537798, 9098332, 8277744 ####[facility] [address] [place] [address] Bilirubin.indirect [Mass or moles/Vol] 0.6 mg/dL Normal 0.1-0.9 [facility] Comment on above: Performed By: #### 2 867171, 5580462, 4502467, 88339236, 3808416, 0031007, 3503811 ####[address] [address] Globulin (S) [Mass/Vol] 2.8 g/dL Normal 1.4-4.0 [facility] Comment on above: Performed By: #### 2 212380, 3056641, 9609270, 29290216, 6600320, 8919362, 8132051 ####[address] [place] [address] Protein [Mass/Vol] 6.8 g/dL Normal 6.0-7.8 [facility] Comment on above: Performed By: #### 2 626389, 0060481, 3051868, 62215836, 3981856, 9819153, 3948572 ####[address] [place] [address] Lactic Acidon 10-26-2022 Lactate [Mass/Vol] 0.9 mmol/L Normal 0.5-2.2 [facility] Comment on above: Performed By: #### 2 680921, 0976533, 5467317, 56846254, 8708820, 8888566, 3234718 ####[facility] [place] [address] Lipase Levelon 10-26-2022 Lipase [Catalytic activity/Vol] 24 U/L Normal 13-58 [facility] Comment on above: Performed By: #### 2 129943, 0322691, 1888934, 85539331, 4389938, 6033548, 2677182 ####[facility] [address] [place] [address] UA With Cult Reflexon 2022 Bacteria LM Ql (Urine sed) TRACE Normal Trace [facility] Comment on above: Performed By: #### 1 2973343 ####[facility] [address] [place] [address] Bilirubin Ql (U) Negative Normal Negative [facility] Comment on above: Performed By: #### 1 4066060 ####[address] [address] Clarity (U) SL CLOUDY Invalid Interpretation Code [facility] Comment on above: Performed By: #### 1 4645818 ####[facility] [address] [place] [address] Color (U) YELLOW Normal Yellow [facility] Comment on above: Performed By: #### 1 4622109 ####[facility] [address] [place] [address] Epithelial cells.squamous LM.HPF (Urine sed) [#/Area] 0-2 Normal 0-2 [facility] Comment on above: Performed By: #### 1 7235384 ####[facility] [address] [place] [address] Glucose Test strip (U) [Mass/Vol] Negative Normal Negative [facility] Comment on above: Performed By: #### 1 4413412 ####[facility] [address] [place] [address] Hemoglobin Ql (U) Negative Normal Negative [facility] Comment on above: Performed By: #### 1 3485434 ####[facility] [address] [place] [address] Ketones (U) [Mass/Vol] Negative Normal Negative [facility] Comment on above: Performed By: #### 1 1993490 ####[facility] [address] [place] [address] [place].plasma/[place] .RBC (Bld) [Mass ratio] 0-3 Normal 0-3 [facility] Comment on above: Performed By: #### 1 2429771 ####[facility] [address] [place] [address] Mucus Ql (Urine sed) TRACE Normal Fish [facility] Comment on above: Performed By: #### 1 4377228 ####[address] [address] Nitrite Ql (U) Negative Normal Negative [facility] Comment on above: Performed By: #### 1 0085803 ####[address] [address] pH (U) 6.0 [pH] Invalid Interpretation Code 5.0-9.0 [facility] Comment on above: Performed By: #### 1 3769983 ####[address] [address] Protein (U) [Mass/Vol] Negative Normal Negative [facility] Comment on above: Performed By: #### 1 8333814 ####[address] [address] Specific gravity (U) [Rel density] 1.025 Invalid Interpretation Code 1.005-1.030 [facility] Comment on above: Performed By: #### 1 9226573 ####[facility] [address] [place] [address] Type of Urine collection method Clean Catch Normal [facility] Comment on above: Performed By: #### 1 1399222 ####[address] [address] Urobilinogen Qn (U) 0.2 {Hermann'U}/dL Normal 0.0-1.0 [facility] Comment on above: Performed By: #### 1 9142886 ####[facility] [address] [place] [address] WBC Auto Ql (U) Negative Normal Negative [facility] Comment on above: Performed By: #### 1 3868232 ####[facility] [address] [place] [address] WBC LM.HPF (Urine sed) [#/Area] 0-5 Normal 0-5 [facility] Comment on above: Performed By: #### 1 4256009 ####[facility] [address] [place] [address] URINALYSISOrdered By: Nathalia Myers on 10-26-2022 Bacteria LM Ql (Urine sed) Trace /HPF Normal Trace/HPF [facility] UA Auto SS Bilirubin Ql (U) Negative (10/26/22 5:34 PM) Normal Negative [facility] UA Auto SS Clarity (U) SL CLOUDY Invalid Interpretation Code [facility] UA Auto SS Color (U) Yellow (10/26/22 5:34 PM) Normal Yellow [facility] UA Auto SS Epithelial cells.squamous LM.HPF (Urine sed) [#/Area] 0-2 /HPF Normal 0-2/HPF [facility] UA Aut o SS Glucose Test strip (U) [Mass/Vol] Negative (10/26/22 5:34 PM) Normal Negative [facility] UA Auto SS Hemoglobin Ql (U) Negative (10/26/22 5:34 PM) Normal Negative [facility] UA Auto SS Ketones (U) [Mass/Vol] Negative (10/26/22 5:34 PM) Normal Negative [facility] UA Auto SS [place].plasma/[place] .RBC (Bld) [Mass ratio] 0-3 /HPF Normal 0-3/HPF [facility] UA Auto SS Mucus Ql (Urine sed) Trace (10/26/22 5:34 PM) Normal [facility] UA Auto SS Nitrite Ql (U) Negative (10/26/22 5:34 PM) Normal Negative [facility] UA Auto SS pH (U) 6.0 *NA* (10/26/22 5:34 PM) Invalid Interpretation Code 5.0 - 9.0 [facility] UA Auto SS Protein (U) [Mass/Vol] Negative (10/26/22 5:34 PM) Normal Negative [facility] UA Auto SS Specific gravity (U) [Rel density] 1.025 *NA* (10/26/22 5:34 PM) Invalid Interpretation Code 1.005 - 1.030 [facility] UA Auto SS UA Spec Desc Clean Catch (10/26/22 5:34 PM) Normal [facility] UA Auto SS Urobilinogen Qn (U) 0.2538192 {Hermann'U}/dL Normal 0.0 - 1.0 EU/dL [facility] UA Auto SS WBC Auto Ql (U) Negative (10/26/22 5:34 PM) Normal Negative [facility] UA Auto SS WBC LM.HPF (Urine sed) [#/Area] 0-5 /HPF Normal 0-5/HPF [facility] UA Auto SS eGFRon 10-26-2022 GFR/1.73 sq M.predicted among non-blacks MDRD (S/P/Bld) [Vol rate/Area] 93 mL/min/1.73 m2 Normal >=59 [facility] Comment on above: Order Comment: Order added by Discern Expert. Result Comment: Unhairer nicole kidney disease could be indicated at eGFR's of less than 60 mL/min/1.73m2. Kidney failure is indicated at less than 15 mL/min/1.73m2. Performed By: #### 2 337235, 2412140, 7337418, 88140820, 7619154, 4069120, 0958171 ####[facility] [address] [place] [address] Consultation Noteon 09-25-19 Consultation Note [id number]#1 .00CD:127 Normal [facility] RAD - CT Reporton 09-24-[address]22 RAD - CT Report [id number]#1 .[id number]:127 Normal [facility] Coding Summary.on 04-30-2022 Coding Summary. CD:[id number] G h0bWw+PGhlYWQ+RM2VIKL oW67wqDQolA0XE3vHIV5O KJBRZQGPSQ0ANR0yaOW2A PbjH5MgkvIx WzwlkWRoAN01KGb3LMM7w PfiBYwgzL5xzHHcI6m9Gl BnQU55iW27LWdjYQPiYmL 3LjZpbjsgbWFy U9plLmKhoVCbFkb+PHRhY mxlIHdpZHRoPScxMDAlJy KskAqvRD3oSo5rMXTvWIR vbGxhcHNlOiBj o9fxHSNkKMspRV4wwVmyA 7JshAC5GMCpq7z6Gv22cZ I+OPTqLSR6qZzzXUapf64 0QdNbd7baHBP9 rEQfGTgrLCO9A62mu5X6D TFnFNYpIBR1xKA9aO2snO qxbuqlT6XavGRcQhF6ZZE 9qPQnxW1sbKdl kopjpZ8gPjr+I04SSQ3LY TIRHC3QXya4O8MeSrquaG I+NV86QAMrVT86gBLyuYL am1rdhJv0PcTa ZYHoZPR9gHfwNKhpu8DtR PWjP99elGNoj6N0XOOfqU jlgVWwRtMyjAJ7gG8wFRw htlwtk1yusige Soczi7ccgi57wU89B05sO AorSLQlSDR8NHAvCQTeuZ kcat4umN8pZq4+LGqtv0c ia4ifcJn9QeNv BKIojzWeaEptPZA3x5TvV h49K9TxjJbjt5ZrGjf2xu 76gFPry1A0tKL3SCwrELH doR2pOUfoGsC0 CCZdEpLsiZ19aMXtLUqcS i7boJzvkOfzQC9tTNWvpo lrJAEsoC9tMJGdgFJzjXu gNO3uMTWpelgb j973QrUoTSO4SNHpyYUoV 3OwaH9xJrRzRVFsIPIrS0 GdbISyHAxoL798RQhgUbF 6YTYoxjPdL4Jv USCawQekChH8q3S9It3Wt 4SgoxkdAMR4ENqjHFFgGv F7ScOlBaA4W0IaYeu5RBH wmJgmLB8oN4Ih USFmhgcxhuemnRL0ZFNaS EJjyR54rWEfJHoqQt5io0 W4c098RZXuCLVnxB94Xm3 udDogMTBwdCBU bE5zofitb2gbwmvcHfAtE DJvMDo0OCa0BAGbzEwqWd IwTVH6DlG9CFK7vJHsiF8 lvMtnabctqR0f Oyc+F70oiR6dQYG8SKC0n garZCJzcvSiMC72VU89X4 RyPjwvdGFibGU+PGRpdiB atGjnYH7nInEv e2bxe3XbZWhsU8NwOTSyN EivXms1ZSXvDEC5lTD3fH 0qLYOsENzrp3Q6sXV4H4Z ofnSplf4ev5pu KLYbGWqoB14cgMUvx2W4L YWhbBO2PJEekErhKhPxtK 93Oyc+UPLbyGkkg9JlCza xv7zmy3awyCa5 UgFuEEInxeAwzKogAKO2b 1UbJk97Z33aVIktYTCkEN IeUZZcOBXpbBxyng2kxQ9 wIi8+PGNvbCB3 pXI3aJ6uCEEgJsC6CPpvN 021KvHbcZXeLrcey8dpc6 ksqTg7EoEaFYOmdgLkyMa rOWG9r9ZaYw31 A49iSBzbIDWpLCVdDLUgF MWhxGijfz0pcO9lCd8+PC 8ln6mhxy44hA67fUU+PHR gZXI2jBwgTXng VQBodI0hZLonHfO0TAIfB iWcjF76iRIlQGvzDn0trH nggMstZS5sSYFjgdahh43 8RbSqc9uaVAJq hZXvSKbxHHT5A96pa4A7B GEyMUNxGHZ2pKS9bI1chG lnbjogbGVmdDsgdmVydGl zWGjyBYriS127 IHRvcDsnPlBhdGllbnQgT sXaRFm7Z4ApEnz1IBJkjM wmET2jrTMgDJbsEw3rdDl vqEtyIH4bADVm rttga002WjXvw5ecLAYah PFuKKznWUD9Y15wb9W6LD ZhHFSaXOK5cTO2kV3zeTu nbjogbGVmdDsg iyQxjNeuNAeiTIdyW842D HRvcDsnPkJpcnRoIERhdG Y2UR33QW37eGDtc3S2qEF 8E6VxAUOunmbm gjcipZT1ZIFhRYAmmS80E h5xdOutRj2nOMMhYOW7VF BdlVIcW9KrvM6rSfZnVWI oNPNxQ9VboZJn WIyxL082WNrvKzU7XGPtt mHeZ6GlBBHiyOhjMuC6n0 M1Bo9NU3H8AK00JW42aCE ka3I0xRI2U8Ok DTNrwdmpqleysXG7JWGbW JFpmI15Mw6fqPxdOm5vGM JfOXN1ESVnlMWyY9JsmD5 yOiAjMDAwMDAw F0KjsUHtQDavE121FOqiR bN9ZOQupiHcO9MlUTYtzR uxEfR9t3R4Xy2KGKi0JO2 1AW54aTJjp0L3 iGQ5D2UlFSYsjmwwcwsfk IW2FOOlTXWeuH37Yz7njU baEu5tCEXyTLQ8QYIweHA mN8WkgS1tBsRt GUHuYEJmJ5SthVIhTDxrM 318VFgvTmD2OQQujbYnP3 PfIBOfsFbaHdZ7s7I7Uf3 BXZNuZA89ZOT2 eGH0ZQ62RM63E1LaTnhph GFibGU+PHRhYmxlIHdpZH RoPScxMDAlJyBzdHlsZT0 fVx0vXKCrPNCa bRykxNEjCwMgm3xwJKViL NmtPL7ayRdrQ1MshPC5PO Zzg1q0Yb46S41xH3VsuDI +KXNliHR5eUE5 uR5hSgUoPdG6FBhpX031J fHaeYYtLpypu0lbs2mrlB b0WrK8NBMrkzCnlHbwASH 2p2NpQa35P90i IHdpZHRoPSIxNSUiIHZhb Nalit5crG7fPy1+PGNvbC F1oHJ2dT7eTcEzCgB5RGk rK879GnWguOOj Japmu6uqc6ygkYv2MkLdT RFeadUqnMjkGMC1u8PzLb 89G0JryArdx5JaVbz5hb8 1zSYsx2O5uFU0 J6CjIVIufrumzINcsArmH U8zEWDkfqgsNMVvbF5qNJ RyS5f8GaNyKaC5WRgoL4R hqnR7LJSikLRj EHvjLKS1G05xp4K4EPVeZ LDjMGP6iJP6oC0meIheuv ogbGVmdDsgdmVydGljYWw dFVasO090WNDn vVijRIQenQ6nCPWovUTlh QhySV9sEOUfnrdeFrAEAF 1HWzVpZZFBA6ILMgDILXD DZN97QL68aYPa n2T0nWO5R6RyTOCxvwqei ybkhTH9ISFoPTPgtA75eN CrOBhwEa4gs3I7v767UXT jXFHziS79Ef2f yCjgQLTneHFKiK1ahpkrw 5byihhuRjWeZVErFGp9PC h6KKJyjMumHmUeLYC0JoU 7XWN1zWUgpH3q gXojcluftD9dQei+MTIvM SzmZBx9HDpsvPK+PHRkIH N1yDuxXCunZPPnpW7vBHQ iU8z4TzDaZoW1 ULowQ0ScAXXnhnknMu43h G5dGfAcRtP2MSluM5Uwqg J8HGDspJIkVKrpHXH2X94 cs3U1OVAoCJMc LBY0rPO5vA3snZraxugto GVmdDsgdmVydGljYWwtYW uhA568OGEyiWjyYnJ5VHq hBIAnLT49SM31 mTWxx8R3kXS4J5LcKFPno kqtwbsxmPA7LFPgVIRvrG 66iFUlHRsuOt7ye7M2b80 6QAEyBQClaA91 Ln0baXltUVIwgPWRsN4pi fzwg0kvxtxfHaGaAWYbWU v7TIe0HXCveZoeOkQlUAS 5EfP3LKM2bEXh cA0brItethumkG3vDdg+R nZbAVizQY48BN39hYCqy4 P9iLL2R5QhDZJdjcgdibd hmXP9KQVyBRCi mM93lQIxNTpfZi2dt4E2h 677KDCpBUZtlB44Sw5soT xxSKDjcQIKnN0nniyjz0m vcjogIzAwMDAw NNi1ISs6JNTbvLkdBwXkG PD0GiE1LMK0zMJrlJ5dgC kdtfftgS4pFty+IQ5hpzu dnrP8GP93WK47 J0BaHxmjfVDamUT+PHRhY mxlIHdpZHRoPScxMDAlJy JceWnaZM9tWa2wJPDbQSK vbGxhcHNlOiBj g2saZNUuBTabLO7igJphB 3IwxBE6VRFys7t5Mv76B6 9uY3MplHJ+UPCbrJH5wLA 2pB7aVzQkWiS6 LEokG858RxTzsKIwVjffy 0zss7wzyZn6VlVmCUDzsy JqhZmgLGN1t1HdYn08J95 sIHdpZHRoPSIy VSYbKVOkfKqwtq0dyT3hG i8+MQFpgKV5eRJ0aG0tSl FtCxW2XKuqB381MzOxlHW nGmfvV02gV3Qt dXA+HSDxBvt6WQHeoDuiV T7otLGyVHxkIa8rIQQ1We YkTnTbUTkiP9VrBSXhjkc gfcrqxTQ6TPMi ZMMotL44Ma3ctSxjQs1yR COcAAQ9LMLyvXDzO4HcyM 8uIkYpSXEsLRBaY6ZpeYJ mCFzdP592AVei RuV5KJFehkVuH4UnJQOjq OynZsL2f0V1Iq0HaOrgxA LdER1eOqTxJZl1G6YsPxx 1TQIuzDazGX6y mABpHEawKj5ycQhntBblW B7fMBBzgdvrb824ZwRpg9 tvHPHdbVFrIEjkZII4X25 er5P7SSQmCOQa MDV7gIQ1aS7kqPujmjyji GVmdDsgdmVydGljYWwtYW ewG014WVDkkCnvObLWFxm 3S7YoZfj6YEYl mAzvME7ftVCpOIhpZc0cb SagaPveIK3mTFArgnrcd4 18QzVrg5yoWUFvuVZzCVz hNQZ2W77ff7E3 XFKsXCZgXRU6iBD5yE7gw GlnbjogbGVmdDsgdmVydG dqUOnqAZktS393IOVulEy pSd3NPlz1W7Qo Ydm5XLZrvRmvSS3yfDYjM YwwKp9tlMdtoZawDX3hLQ Oezoqry938AxJme6rfCEV wcHQgVGltZXM7 E01gq9I5MJFfFWIpZSI3i NW4uU1pmXmihvfyfSXgtJ cdzdAnzXenZIodPXozA77 6IHRvcDsnPlBh eWVyOjwvdGQ+QD47cg81Y 4NtLlvbLjc4GYTzTLT1gD Z5oU4iQGScFJfed0G9nOY 0N5AzmhEqwb4u b2xs (more content not included)... Normal [facility] Discharge Instructionson Discharge Instructions [id number]# 1.00CD:127 Normal [facility] Auto Diffon 04-26-2022 Basophils/100 WBC (Bld) 0.9 % Normal 0.0-2.0 [facility] Comment on above: Order Comment: Order Added by Discern Expert. Performed By: #### 1 [id number], 1838018, 6234474, 54688972, 9813376, 48961731, 7220684, 5912367 ####[facility] [address] [place] [address] Basophils/Leukocytes Auto (Bld) [Pure # fraction] 0.1 E9/L Normal 0.0-0.2 [facility] Comment on above: Order Comment: Order Added by Cristofer Expert. Performed By: #### 1 2841399, 3152352, 8260272, 73251731, 4965050, 98746577, 0739882, 6204395 ####[facility] [address] [place] [address] Eosinophils/100 WBC (Bld) 1.2 % Normal 0.0-8.0 [facility] Comment on above: Order Comment: Order Added by Cristofer Expert. Performed By: #### 1 8799347, 6733607, 1587789, 73421489, 4409856, 07969092, 2299189, 3392221 ####[facility] [address] [place] [address] Eosinophils/Leukocytes Auto (Bld) [Pure # fraction] 0.1 E9/L Normal 0.0-0.5 [facility] Comment on above: Order Comment: Order Added by Cristofer Expert. Performed By: #### 1 4506471, 8457322, 7104841, 93787146, 1983248, 81916381, 2134446, 1584220 ####[facility] [address] [place] [address] Lymphocytes/100 WBC (Bld) 37.0 % Normal 14.0-50.0 [facility] Comment on above: Order Comment: Order Added by Cristofer Expert. Performed By: #### 1 8509768, 4077574, 1807395, 98640935, 4037693, 24145789, 6109987, 7963497 ####[address] [place] [address] Lymphocytes/Leukocytes Auto (Bld) [Pure # fraction] 3.8 E9/L Normal 1.0-4.0 [facility] Comment on above: Order Comment: Order Added by Discern Expert. Performed By: #### 1 0777303, 9360792, 6282456, 62050239, 8910767, 20924029, 6704541, 5156271 ####[address] [address] Monocytes/100 WBC (Bld) 7.7 % Normal 4.0-14.0 [facility] Comment on above: Order Comment: Order Added by Cristofer Expert. Performed By: #### 1 1434165, 2471311, 4571406, 87471705, 1906875, 46359267, 1028800, 9365318 ####[address] [address] Monocytes/Leukocytes Auto (Bld) [Pure # fraction] 0.8 E9/L Normal 0.2-1.0 [facility] Comment on above: Order Comment: Order Added by Cristofer Expert. Performed By: #### 1 6820464, 2763617, 8466431, 85593658, 8041568, 21195939, 5414383, 5763566 ####[address] [place] [address] Neutrophils/100 WBC (Bld) 53.2 % Normal 36.0-75.0 [facility] Comment on above: Order Comment: Order Added by Cristofer Expert. Performed By: #### 1 6889834, 1682955, 8428085, 01578377, 6434957, 96725618, 6350585, 7646708 ####[address] [place] [address] Neutrophils/Leukocytes Auto (Bld) [Pure # fraction] 5.4 E9/L Normal 2.0-7.5 [facility] Comment on above: Order Comment: Order Added by Discern Expert. Performed By: #### 1 7664975, 2366914, 3081053, 26039169, 3631892, 09528810, 0656153, 7072855 ####[facility] [address] [place] [address] BMPon 04-26-2022 Creatinine [Mass/Vol] 0.7 mg/dL Normal 0.5-1.3 [facility] Comment on above: Performed By: #### 1 5977469, 2174342, 9553838, 34440486, 0808244, 19661078, 3366920, 2335395 ####[facility] [address] [place] [address] Urea nitrogen [Mass/Vol] 11 mg/dL Normal 5-21 [facility] Comment on above: Performed By: #### 1 5961036, 7858751, 0047496, 37521987, 2582180, 93215827, 2129961, 1103584 ####[facility] [address] [place] [address] Urea nitrogen/Creatinine [Mass ratio] 16 No Units Normal 10-20 [facility] Comment on above: Performed By: #### 1 6815112, 4362879, 2098552, 33598006, 5028582, 99428065, 2860644, 4399119 ####[facility] [address] [place] [address] Anion gap [Moles/Vol] 12 mmol/L Normal 6-16 [facility] Comment on above: Performed By: #### 1 7707434, 5496839, 2593275, 45484331, 0065260, 90110578, 9314953, 7483453 ####[facility] [address] [place] [address] Calcium [Mass/Vol] 9.2 mg/dL Normal 8.9-11.1 [facility] Comment on above: Performed By: #### 1 9275647, 6092918, 3228018, 23261919, 0100232, 36083552, 9773817, 6256586 ####[facility] [address] [place] [address] Chloride [Moles/Vol] 102 mmol/L Normal 101-111 [facility] Comment on above: Performed By: #### 1 7462576, 0187152, 3929671, 87372174, 2668505, 90117928, 9584831, 2722410 ####[facility] [address] [place] [address] CO2 [Moles/Vol] 26 mmol/L Normal 21-[address] [facility] Comment on above: Performed By: #### 1 6819914, 3171774, 0043706, 43564755, 5163726, 35538817, 9223351, 3257006 ####[facility] [address] [place] [address] Glucose [Mass/Vol] 87 mg/dL Normal 55-199 [facility] Comment on above: Result Comment: If t his glucose result represents a fasting glucose, interpretation should refer to the following reference range: 55-99 mg/dL Performed By: #### 1 6464187, 0699786, 0426950, 37679625, 4388656, 98219541, 0608061, 2587055 ####[facility] [address] [place] [address] Potassium [Moles/Vol] 4.4 mmol/L Normal 3.5-5.3 [facility] Comment on above: Performed By: #### 1 5893229, 3535061, 1975581, 14868277, 6794223, 04460133, 2755777, 8661300 ####[facility] [address] [place] [address] Sodium [Moles/Vol] 136 mmol/L Normal 135-145 [facility] Comment on above: Performed By: #### 1 2617729, 2334931, 4931355, 64180273, 2328789, 56500359, 9472506, 8457349 ####[facility] [address] [place] [address] CBC w/ Auto Diffon 3 Erythrocyte distribution width (RBC) [Ratio] 13.5 % Normal 10.9-14.2 [facility] Comment on above: Performed By: #### 1 1568825, 2564146, 6953343, 63574702, 2333025, 13435621, 5279317, 4890098 ####[address] [place] [address] Hematocrit (Bld) [Volume fraction] 40.7 % Normal 34.0-46.0 [facility] Comment on above: Performed By: #### 1 8772519, 5249792, 5902117, 44150599, 7393553, 51519393, 3231763, 0834450 ####[address] [address] Hemoglobin (Bld) [Mass/Vol] 13.5 g/dL Normal 12.0-16.0 [facility] Comment on above: Performed By: #### 1 5015904, 2123395, 7159062, 33242903, 1362149, 65763909, 1829856, 2477462 ####[address] [place] [address] MCH (RBC) [Entitic mass] 29.7 pg Normal 27.0-34.0 [facility] Comment on above: Performed By: #### 1 2315782, 6001474, 1899010, 63333336, 3359585, 18696591, 7302225, 9880035 ####[address] [place] [address] MCHC (RBC) [Mass/Vol] 33.3 g/dL Normal 31.4-36.0 [facility] Comment on above: Performed By: #### 1 2666935, 5158073, 0573428, 14019103, 3178275, 06739857, 2692820, 4702174 ####[address] [place] [address] MCV (RBC) [Entitic vol] 89.4 fL Normal 80.0-100.0 [facility] Comment on above: Performed By: #### 1 7262112, 3679529, 3045279, 35992068, 0624618, 85502004, 4568081, 6943200 ####[address] [address] Platelet mean volume (Bld) [Entitic vol] 8.5 fL Normal 6.4-10.8 [facility] Comment on above: Performed By: #### 1 3339582, 0587676, 1057904, 72204240, 3643719, 14110017, 0155545, 0025535 ####[address] Platelets (Bld) [#/Vol] 287.0 E9/L Normal 150.0-500.0 [facility] Comment on above: Performed By: #### 1 2082704, 1903416, 9214891, 60559415, 4691760, 47831735, 4414066, 2377974 ####[address] [address] RBC (Bld) [#/Vol] 4.6 E12/L Normal 4.3-5.9 [facility] Comment on above: Performed By: #### 1 1175809, 0988191, 9676796, 99512914, 8148149, 12114982, 4032473, 9316599 ####[address] [address] WBC corrected for nucl RBC Auto (Bld) [#/Vol] 10.2 E9/L Normal 4.0-11.[address] [facility] Comment on above: Performed By: #### 1 3200148, 1486776, 0729757, 09388264, 1370557, 71121441, 0570073, 9255148 ####[facility] [address] [place] [address] CHEMISTRYOrdered By: SYSTEM SYSTEM on 04-26-2022 Albumin [Mass/Vol] 4.0 g/dL Normal 3.3 - 5.0 gm/dL [facility] Albumin/Globulin [Mass ratio] 1.3 {ratio} Normal 1.1 - 2.2 [facility] ALP [Catalytic activity/Vol] 39 [iU]/d Normal 21 - 98 Int._Unit/L [facility] ALT No additional P-5'-P [Catalytic activity/Vol] 16 [iU]/d Normal 6 - 46 Int._Unit/L [facility] Anion gap [Moles/Vol] 12 mmol/L Normal 6 - 16 mEq/L [facility] AST [Catalytic activity/Vol] 15 [iU]/d Normal 5 - 43 Int._Unit/L [facility] Bilirubin [Mass/Vol] 0.4 mg/dL Normal 0.0 - 1 .1 mg/dL [facility] Bilirubin.direct [Mass/Vol] mg/dL Normal 0.1 - 0.4 mg/dL [facility] Bilirubin.indirect [Mass or moles/Vol] Unable to Calculate mg/dL Invalid Interpretation Code 0.1 - 0.9 mg/dL [facility] Calcium [Mass/Vol] 9.2 mg/dL Normal 8.9 - 11. 1 mg/dL [facility] Chloride [Moles/Vol] 102 mmol/L Normal 101 - 1 11 mmol/L [facility] CO2 [Moles/Vol] 26 mmol/L Normal 21 - 31 mmol/L [facility] Creatinine [Mass/Vol] 0.7 mg/dL Normal 0.5 - 1.3 mg/dL [facility] GFR/1.73 sq M.predicted among blacks MDRD (S/P/Bld) [Vol rate/Area] mL/min/1.73 m2 Normal >=59mL/min/1 .73 m2 [facility] Chem S GFR/1.73 sq M.predicted among non-blacks MDRD (S/P/Bld) [Vol rate/Area] mL/min/1.73 m2 Normal >=59mL/min/1 .73 m2 [facility] S Globulin (S) [Mass/Vol] 3.1 g/dL Normal 1.4 - 4.0 gm/dL [facility] Glucose [Mass/Vol] 87 mg/dL Normal 55 - 199 mg/dL [facility] Lipase [Catalytic activity/Vol] 31 U/L Normal 13 - 58 unit/L [facility] Potassium [Moles/Vol] 4.4 mmol/L Normal 3.5 - 5.3 mmol/L [facility] Protein [Mass/Vol] 7.1 g/dL Normal 6.0 - 7.8 gm/dL [facility] Sodium [Moles/Vol] 136 mmol/L Normal 135 - 145 mmol/L [facility] Troponin I.cardiac [Mass/Vol] 2.90 pg/mL Low 10.10 - 27.10 pg/mL [facility] Urea nitrogen [Mass/Vol] 11 mg/dL Normal 5 - 21 mg/dL [facility] Urea nitrogen/Creatinine [Mass ratio] 16 mg/mg Normal 10 - 20 [facility] COAGULATIONOrdered By: Venus Jaffe on 04-26-2022 aPTT Coag (PPP) [Time] 34.6 s Normal 25.1 - 36.5 second(s) [facility] INR Coag (PPP) [Relative time] 1.0 {INR} Invalid Interpretation Code [facility] Auto Coag PT Coag (PPP) [Time] 10.9 s Normal 9.4 - 1 2.5 second(s) [facility] Auto Coag Consent for Treatmenton 04-17 Consent for Treatment [id number]#1 .00CD:127 Normal [facility] ED Clinical Summaryon 2022 ED Clinical Summary [address] [address] ED Clinical Summary Person Information Name: DENISHA OWEN [facility] Age: 42 Years : 1980 Sex: Female Language: Algerian PCP: Estela YAN, Katerine David Marital Status: Phone: [phone] MRN: [id number] Visit Id: Visit Reason: Palpitations; Chest pain; CHEST PAINS Speciality: Acuity: 3 Enc Type: Emergency Med Service: Emergency Arrival: 04/26/2022 16:55:38 Discharge: 04/26/2022 18:33:49 LOS: 000 01:38 Checkin: 04/26/2022 16:55:38 Checkout: 04/26/2022 18:33:49 Dispo Type: Home (Routine DC) EVENTS: Event Name Event Status Request Date/Time Start Date/Time Complete Date/Time Arrive Complete 04/26/2022 16:55:38 04/26/2022 16:55:38 04/26/2022 16:55:38 Document Home Meds Request 04/26/2022 16:55:38 Triage Complete 04/26/2022 16:55:38 04/26/2022 17:01:15 04/26/2022 17:01:15 Bed Assign Complete 04/26/2022 16:57:24 04/26/2022 16:57:24 04/26/2022 16:57:24 Dr Exam Complete 04/26/2022 16:57:24 04/26/2022 16:58:34 04/26/2022 16:58:34 RN Exam Complete 04/26/2022 16:57:24 04/26/2022 17:36:38 04/26/2022 17:36:38 EKG Complete 04/26/2022 16:58:08 04/26/2022 17:01:59 Registration Complete 04/26/2022 16:58:34 04/26/2022 17:29:19 04/26/2022 17:29:19 Pending Labs Request 04/26/2022 17:15:06 Lab Complete 04/26/2022 17:15:06 04/26/2022 17:59:09 Patient Care Request 04/26/2022 17:15:06 RT Request 04/26/2022 17:15:06 X-Ray Complete 04/26/2022 17:15:06 04/26/2022 17:23:38 04/26/2022 17:30:27 Pending Labs Complete 04/26/2022 17:17:50 04/26/2022 17:17:50 04/26/2022 17:59:09 Lab Complete 04/26/2022 17:17:50 04/26/2022 17:17:50 04/26/2022 17:59:09 Reg Complete Request 04/26/2022 17:29:19 Reg Bed Request Complete 04/26/2022 17:29:20 04/26/2022 17:29:20 04/26/2022 17:29:20 Wet Read Complete 04/26/2022 17:30:27 04/26/2022 17:41:20 04/26/2022 17:41:20 Pending Labs Complete 04/26/2022 17:34:07 04/26/2022 17:34:07 04/26/2022 17:34:16 Lab Complete 04/26/2022 17:34:07 04/26/2022 17:34:07 04/26/2022 17:34:16 Discharge Complete 04/26/2022 18:23:10 04/26/2022 18:33:59 04/26/2022 18:33:59 Transfer Complete 04/26/2022 18:33:59 04/26/2022 18:33:59 04/26/2022 18:33:59 ADDRESS: [address] [place] [phone] [facility] DOC NOTES: MEDICAL INFORMATION: Prescriptions Given: Medications to Continue with No Changes Other Medications acetaminophen-hydroco done (Nageezi 5/325 Tab) 1 Tablets By Mouth every 4 hours as needed as needed for pain. acetaminophen-hydroco done (Nageezi 325 mg-5 mg oral tablet) 1 Tablets By Mouth every 4 hours as needed for pain. Refills: 0. acetaminophen-hydroco done (Nageezi 325 mg-5 mg oral tablet) 1 Tablets By Mouth every 4 hours as needed for pain. Refills: 0. albuterol (Ventolin HFA 90 mcg/inh Aerosol) 2 Puffs Inhalation 4 times a day as needed for wheezing. Refills: 0. escitalopram (Lexapro) By Mouth every day. famotidine (Pepcid 40 mg Tab) 1 Tablets By Mouth once a day (at bedtime). Refills: 0. famotidine (Pepcid) 1 tablet By Mouth every day. ondansetron 2 times a day. promethazine (Phenergan 25 mg Tab) 1 Tablets By Mouth every 6 hours. Take one by mouth every six hours for nausea and vomiting. Refills: 0. promethazine (Phenergan) 25 Milligram By Mouth every 6 hours as needed Nausea. sertraline By Mouth every day. sertraline (Zoloft 100 mg Tab) 0.5 Tablets By Mouth every day. TAKING ONLY 50 MG. PATIENT EDUCATION INFORMATION: Instructions: Follow up: With: Address: When: Katerine Palmer [address] [place] [address] [employer] ([employer] In 3 days DIAGNOSIS: Chest pain Normal [facility] ED Note-Physicianon 04-26-19 ED Note-Physician Basic Information Time Seen: Jeovanny Garcia DO 04/26/2022 16:58 Chief Complaint pt reports starting today she began to have palpations and chestpain, stated it was hard to take a deep breath. pt denies any other symptoms. History of Present Illness 42 female presents emergency department with chest pain. Patient states this started earlier this morning she describes a substernal chest discomfort with palpitations throughout the day today. She states that it feels like it is difficult for her to take a deep breath but she is not complaining of any actual shortness of breath no cough or fevers. No abdominal pain no nausea vomiting diarrhea no pain or swelling into her legs. Patient has 0 DVT or PE risk factors no pleuritic discomfort. She has the following CAD risk factors: Tobacco user and some family history. She has never been worked up in the past never had stress test or heart catheterization. No other aggravating or relieving factors no other associated symptoms no other prior treatments or complaints. Family: Reviewed and noncontributory Social: lives at home patient is a smoker Review of systems negative unless otherwise specified in the HPI. Physical Exam Vitals & Measurements T: 36.7 ?C(Oral) HR: 72(Peripheral) RR: 16 BP: 128/88 SpO2: 96% HT: 170 cm WT: 78 kg BMI: 26.99 General: The patient appears well and in no apparent distress. Patient is resting comfortably on cart. Skin: Warm, dry, no pallor noted. Head: Normocephalic, atraumatic Neck: No JVD Eye: PERRLA, EOMI ENT: Moist mucus membranes Cardiovascular: Regular rate normal peripheral perfusion Respiratory: No respiratory distress no accessory muscle use no obvious audible wheezing Chest Wall: no deformity Musculoskeletal: normal ROM, no deformity, no swelling negative bilateral Homans' sign GI: Soft no obvious distention. No rebound or rigidity. No guarding. No tenderness. Neurological: A&O moves all extremities equal strength and symmetry Psychiatric: Cooperative and appropriate Procedure Heart Score for Major Cardiac Event History: Example factors for history - pattern of chest pain, onset, duration, relation with exercise, stress or cold, localization, concominant symptoms. reaction to sublingual nitrates, [] Highly suspicious +2 [] Moderately suspicious +1 [0] Slightly suspicious 0 EKG: [] Significant ST-Depression +2 [] Non specific repolarization disturbance +1 [0] Normal 0 Age: [] >= 65 +2 [] 45-65 + 1 [0] <45 0 Risk Factors: (HLD, HTN, DM, Cigarette Smoking, Pos Family Hx, Obesity) [] >3 risk factors or hx of atheroslerotic disease + 2 [1] 1-2 risk factors + 1 [] No risk factors known 0 Troponin: [] >= 3X normal + 2 [] 1-3X normal + 1 [0] <= Normal 0 [1] 0-3 Points 0.9 - 1.7% risk of major adverse cardiac event in 6 weeks [] 4-6 Points 12-16.6% risk of major adverse cardiac event in 6 weeks [] 7-10 Points 50-65% risk of major adverse cardiac event in 6 weeks [] 0-3 Points with 2 sets of negative cardiac markers <1% risk of major adverse cardiac event in 30 days. Medical Decision Making MEDICAL DECISION MAKING Number and Complexity of Problems Differential Diagnosis: MDM Data External documents reviewed: My EKG interpretation: in chart if applicable My CT interpretation: in chart if applicable My X-ray interpretation: in chart if applicable My Ultrasound interpretation: Decision rules/scores evaluated: Discussed with: Treatment and Disposition ED Course: Work-up in the ER has been reviewed and noted. Work-up is essentially benign here patient does have a low heart score therefore I did offer repeat cardiac enzymes she has declined stating she would prefer to go home. I think this is reasonable given her risk profile. Her PERC score is 0 as well. Follow-up in the outpatient setting return to ER symptoms change or worsen we discussed this at length. Shared decision making: Code status: Assessment/Plan Chest pain (R07.9: Chest pain, unspecified) Orders: Automated Diff Basic Metabolic Panel CBC w/ Auto Diff ED Cardiac Monitoring eGFR Hepatic Function Panel Lipase Level Oxygen Saturation Oxygen Therapy PT & PTT Saline Lock Insert Troponin 0 Hr. Troponin 3 Hr. Troponin 6 Hr. Troponin 9 Hr. XR Chest Single View Disposition Plan Discharge Prescription List Prescriptions No active prescription medications Follow-up With When Contact Information Katerine Palmer In 3 days [address] [place] [address]- Business (1) Additional Instructions: Problem List/Past Medical History Ongoing Biliary dyskinesia Smoker Historical Depression Endometriosis of fallopian tube Procedure/Surgical History laparoscopic cholecystectomy (06/18/2013), Laparoscopy, le (more content not included)... Normal [facility] Comment on above: Result Comment: Elec tronically Signed By: Jeovanny Garcia DO\.víctor\Date and Time Signed: 04/26/22 18:23 EST ED Patient Education Noteon 04-26-2022 ED Patient Education Note Normal [facility] ED Patient Summaryon 023 ED Patient Summary [address] [address] Patient Discharge Instructions Person Information Name: DENISHA OWEN Age: 42 Years Arrival Date: 04/26/2022 16:55:38 Discharge Diagnosis: Chest pain Primary Care Physician: Estela YAN, Katerine David Provider Information Primary Provider: Jeovanny Garcia DO [place] Secretary:None The exam and treatment you received in the Emergency Department were for an urgent problem and are not intended as complete care. It is important that you follow up with a doctor, nurse practitioner, or physician?s communication assistant for ongoing care. If your symptoms become worse or you do not improve as expected and you are unable to reach your usual health care provider, you should return to the Emergency Department. We are available 24 hours a day. DENISHA OWEN has been given the following list of patient education materials, prescriptions and follow-up instructions: Follow-up Instructions: With: Address: When: Katerine Palmer [address] [place], [place] [id number] Business (1) In 3 days In the event that this physician does not participate in your insurance network, please consult with your insurance company to find a nearby participating provider. Patient Education Materials: A MESSAGE TO ALL PATIENTS REGARDING OPIOIDS PRESCRIPTION OPIOIDS: WHAT YOU NEED TO KNOW Prescription opioids can be used to help relieve hvnuuaru-hg-btdpgy pain and are often prescribed following a surgery or injury, or for certain health conditions. These medications can be an important part of the treatment but also come with serious risks. It is important to work with your healthcare provider to make sure you are getting the safest, most effective care. WHAT ARE THE RISKS AND SIDE EFFECTS OF OPIOID USE? Prescription opioids carry serious risks of addiction and overdose, especially with prolonged use. An opioid overdose, often marked by slowed breathing, can cause sudden . The use of prescription opioids can have a number of side effects as well, even when taken as directed: ? Tolerance?meaning you might need to take more of the medication for the same pain relief ? Physical dependence?meaning you have symptoms of withdrawal when a medication is stopped ? Increased sensitivity to pain ? Constipation ? Nausea, vomiting, and dry mouth ? Sleepiness and dizziness ? Confusion ? Depression ? Low levels of testosterone that can result in lower sex drive, energy, and strength ? Itching and sweating RISKS ARE GREATER WITH: ? History of drug misuse, substance use disorder, or overdose ? Mental health conditions (such as depression or anxiety) ? Sleep apnea ? Older age (65 years and older) ? Avoid alcohol while taking prescription opioids. Also, unless specifically advised by your health care provider, medications to avoid include: ? Benzodiazepines (such as Xanax or Valium) ? Muscle relaxants (such as Soma or Flexeril) ? Hypnotics (such as Ambien or Lunesta) ? Other prescription opioids KNOW YOUR OPTIONS Talk to your health care provider about ways to manage your pain that don?t involve prescription opioids. Some of these options may actually work better and have fewer risks and side effects. Options may include: ? Pain relievers such as acetaminophen, ibuprofen, and naproxen ? Some medication that are also used for depression or seizures ? Physical therapy and exercise ? Cognitive behavioral therapy, a psychological, goal-directed approach, in which patients learn how to modify physical, behavioral, and emotional triggers of pain and stress. IF YOU ARE PRESCRIBED OPIOIDS FOR PAIN: ? Never take opioids in greater amounts or more often than prescribed. ? Follow up with your primary health care provider. o Work together to create a plan on how to manage your pain. o Talk about ways to help manage your pain that don?t involve prescription opioids. o Talk about any and all concerns and side effects. ? Help prevent misuse and abuse o Never sell or share prescription opioids. o Never use another person?s prescription opioids. ? Store prescription opioids in a secure place and out of reach of others (this may include visitors, children, friends, and family). ? Safely dispose of unused prescription opioids: Find your community drug take-back program or your pharmacy mail-back program, or flush them down the toilet, following guidance from the Food and Drug Administration (www.fda.gov/Drugs/Re sourcesForYou). ? Visit www.cdc.gov/drugoverd ose to learn about the risks of opioids abuse and overdose. ? If you believe you may be struggling with addiction, tell your health home care attendant and ask for guidance or call [facility] National Helpline at 3-821-881-WGXG. k Source: US Department of Health and Human Services/Center for Disease Co (more content not included)... Normal [facility] HEMATOLOGYOrdered By: SYSTEM SYSTEM on 04-26-2022 Basophils/100 WBC (Bld) 0.9 % Normal 0.0 - 2.0 % [facility] Basophils/Leukocytes Auto (Bld) [Pure # fraction] 0.1 E9/L Normal 0.0 - 0.2 E9/L [facility] HemeAutoSS Eosinophils/100 WBC (Bld) 1.2 % Normal 0.0 - 8.0 % [facility]eAutoSS Eosinophils/Leukocytes Auto (Bld) [Pure # fraction] 0.1 E9/L Normal 0.0 - 0.5 E9/L [facility] Lymphocytes/100 WBC (Bld) 37.0 % Normal 14.0 - 50.0 % [facility]eAutoSS Lymphocytes/Leukocytes Auto (Bld) [Pure # fraction] 3.8 E9/L Normal 1.0 - 4.0 E9/L [facility]eAutoSS Monocytes/100 WBC (Bld) 7.7 % Normal 4.0 - 14.0 % [facility]eAutoSS Monocytes/Leukocytes Auto (Bld) [Pure # fraction] 0.8 E9/L Normal 0.2 - 1.0 E9/L [facility] Neutrophils/100 WBC (Bld) 53.2 % Normal 36.0 - 75.0 % [facility]eAutoSS Neutrophils/Leukocytes Auto (Bld) [Pure # fraction] 5.4 E9/L Normal 2.0 - 7.5 E9/L [facility]eAutoSS HEMATOLOGYOrdered By: Portia Cherry on 04-26-2022 Erythrocyte distribution width (RBC) [Ratio] 13.5 % Normal 10.9 - 14.2 % [facility]eAuto[facility] Hematocrit (Bld) [Volume fraction] 40.7 % Normal 34.0 - 46.0 % [facility] Hemoglobin (Bld) [Mass/Vol] 13.5 g/dL Normal 12.0 - 16.0 gm/dL [facility] MCH (RBC) [Entitic mass] 29.7 pg Normal 27.0 - 34.0 pg [facility] MCHC (RBC) [Mass/Vol] 33.3 g/dL Normal 31.4 - 36.0 gm/dL [facility]eAutoSS MCV (RBC) [Entitic vol] 89.4 fL Normal 80.0 - 100.0 fL [facility] Platelet mean volume (Bld) [Entitic vol] 8.5 fL Normal 6.4 - 10.8 fL [facility]eAutoSS Platelets (Bld) [#/Vol] 287.0 E9/L Normal 150.0 - 500.0 E9/L [facility] RBC (Bld) [#/Vol] 4.6 E12/L Normal 4.3 - 5.9 E12/L [facility] WBC corrected for nucl RBC Auto (Bld) [#/Vol] 10.2 E9/L Normal 4.0 - 11.0 E9/L [facility] Hep Func Panelon 04-26-2022 Bilirubin.indirect [Mass or moles/Vol] UTC Abnormal 0.1-0.9 [facility] Comment on above: Result Comment: Resu lt verified by Discern Rule. Performed result [facility] (Unable to Calculate) was sent as an Alpha code due the inability to calculate a valid numeric value. Performed By: #### 1 [id number], 0393307, 9797372, 64766084, 5444044, 46350896, 9554779, 5721911 ####[facility] [address] [place] [address] Albumin [Mass/Vol] 4.0 g/dL Normal 3.3-5.0 [facility] Comment on above: Performed By: #### 1 [id number], 3933747, 3655468, 57827046, 3330161, 94784443, 5137362, 8016796 ####[facility] [address] [place] [address] Albumin/Globulin (S) [Mass conc ratio] 1.3 Normal 1.1-2.2 [facility] Comment on above: Performed By: #### 1 9442773, 8885451, 9902942, 58112912, 2287338, 25546029, 0829546, 0859019 ####[facility] [address] [place] [address] ALP [Catalytic activity/Vol] 39 Int._Unit/L Normal 21-98 [facility] Comment on above: Performed By: #### 1 9382927, 0792026, 5001696, 66612166, 8381268, 39941122, 7703214, 5591720 ####[facility] [address] [place] [address] ALT No additional P-5'-P [Catalytic activity/Vol] 16 Int._Unit/L Normal 6-46 [facility] Comment on above: Performed By: #### 1 8962763, 7266524, 1660522, 79104412, 1732333, 23149806, 1358652, 9721106 ####[facility] [address] [place] [address] AST [Catalytic activity/Vol] 15 Int._Unit/L Normal 5-43 [facility] Comment on above: Performed By: #### 1 0106561, 7843328, 4667757, 80812625, 8554601, 78203091, 5479307, 2068915 ####[place] [address] [place] [address] Bilirubin [Mass/Vol] 0.4 mg/dL Normal 0.0-1.1 [facility] Comment on above: Performed By: #### 1 5800699, 2031124, 4362308, 92347906, 9259958, 88132564, 5497259, 5281062 ####[facility] [address] [place] [id number] Bilirubin.direct [Mass/Vol] mg/dL Normal 0.1-0.4 [facility] Comment on above: Performed By: #### 1 7102864, 7637807, 7190822, 95012979, 6836295, 93763310, 5114047, 2334705 ####[facility] [address] [place] [address] Globulin (S) [Mass/Vol] 3.1 g/dL Normal 1.4-4.0 [facility] Comment on above: Performed By: #### 1 5559121, 7912258, 0401628, 93116821, 2656881, 47494155, 6668118, 8934131 ####[address] [place] [address] Protein [Mass/Vol] 7.1 g/dL Normal 6.0-7.8 [facility] Comment on above: Performed By: #### 1 9549529, 0412165, 6215124, 29840498, 8207783, 71102069, 2864933, 9731606 ####[facility] [address] [place] [address] Lipase Levelon 04-26-2022 Lipase [Catalytic activity/Vol] 31 U/L Normal 13-58 [facility] Comment on above: Performed By: #### 1 0290823, 4136478, 0456609, 43778526, 0231268, 92709641, 0365994, 9396491 ####[facility] [address] [place] [address] PT & PTTon 04-26-2022 aPTT Coag (PPP) [Time] 34.6 second(s) Normal 25.1-36.5 [facility] Comment on above: Result Comment: Para meter 15 days - 4 weeks 1 - 5 months 6 - 11 months 1 - 5 years 6 - 10 years 11 - 17 years PTT Mean: 35.4 (27.6-45.6) Mean: 33.5 (24.8-40.7) Mean: 32.4 (25.1-40.7) Mean: 31.6 (24.0-39.2) Mean: 31.6 (26.9-38.7) Mean: 31.0 (24.6-38.4) Pediatric Reference ranges were obtained from a study by Will Bolton et al. prepared from 1437 samples obtained at 7 different centers using the same coagulation reagent and instrumentation as [facility]. Currently there are no coagulation studies available worldwide for children to 14 days, and no normal ranges. Heparin therapeutic range (represented by Anti-Factor Xa activity of 0.2 - 0.4 U/mL) corresponds to PTT of 56.6 - 109.0 sec. Performed By: #### 1 6656260, 1193451, 7510136, 95906309, 5556755, 57133479, 1080914, 8656193 ####[facility] [address] [place] [address] INR Coag (PPP) [Relative time] 1.0 {INR} Invalid Interpretation Code [facility] Comment on above: Result Comment: INR results are specifically intended to assess patients stabilized on long-term Anticoagulation therapy suggested INR?s ?Less Intensive Anticoagulation? 2.0 ? 3.0 Conventional Range 3.0 ? 4.5 Performed By: #### 1 [id number], 1797634, 7626552, 25267008, 0004041, 09463092, 3277164, 4211611 ####[facility] [address] [place] [address] PT Coag (PPP) [Time] 10.9 second(s) Normal 9.4-12.5 [facility] Comment on above: Result Comment: 15 d ays - 4 weeks 1 - 5 months 6 -11 months 1- 5 years 6-10 years 11 -17 years Mean: 11.2 (9.5-12.6) Mean: 11.0 (9.7-12.8) Mean: 11.0 (9.8-13.0) Mean: 11.3 (9.9-13.4) Mean: 11.7 (10.0-14.6) Mean: 11.8 (10.0 - 14.1) Pediatric Reference ranges were obtained from a study by Will Bolton et al. prepared from 1437 samples obtained at 7 different centers using the same coagulation reagent and instrumentation as [facility]. Currently there are no coagulation studies available worldwide for children to 14 days, and no normal ranges. Performed By: #### 1 [id number], 4765439, 8503383, 75498896, 8292745, 23077721, 6194747, 4249967 ####[facility] [address] [place] [address] Troponin 0 Hr.on 04-26-2022 Troponin I.cardiac [Mass/Vol] 2.90 pg/mL Low 10.10-27.10 [facility] Comment on above: Result Comment: The 95% CI (Confidence Interval) PPV (Positive Predictive Value) for myocardial infarction in females is 38 pg/mL, in males 51 pg/mL. The results should be used in conjunction with clinical conditions of myocardial infarction. (Access High Sensitivity Troponin I Instructions For Use, [place]ine [place], October 2017) Performed By: #### 1 1036487, 2494007, 9773677, 51606176, 2758796, 79094453, 9510406, 9115060 ####[facility] [address] [place] [address] XR Chest Single Viewon 04-26 XR Chest Single View Exam Date/Time: 04/26/2022 17:30 EST Reason for Exam: Chest pain Report IMPRESSION: NO RADIOGRAPHIC EVIDENCE OF ACUTE INTRATHORACIC PROCESS. EXAM: XR Chest Single View History: Chest pain] Technique: Portable AP view of the chest. Comparison: None available Findings: The cardiomediastinal silhouette is within normal limits. No pneumothorax, pleural effusion, or consolidation. Bones of the thorax appear intact. FINAL REPORT Dictated: 04/26/2022 6:27 pm Josh Fan DO Signed (Electronic Signature): 04/26/2022 6:27 pm Signed by: Josh Fan DO Transcribed by: NABIL Technologist: RUTH ANN Normal [facility] eGFRon 04-26-2022 GFR/1.73 sq M.predicted among blacks MDRD (S/P/Bld) [Vol rate/Area] mL/min/{1.73_m2} Normal >=59 [facility] Comment on above: Order Comment: Order added by Discern Expert. Result Comment: eGFR is race adjusted. AA=. Performed By: #### 1 6921260, 2112811, 5484368, 46289574, 0547798, 25721017, 8505674, 0168583 ####[facility] [address] [place] [address] GFR/1.73 sq M.predicted among non-blacks MDRD (S/P/Bld) [Vol rate/Area] mL/min/{1.73_m2} Normal >=59 [facility] Comment on above: Order Comment: Order added by Discern Expert. Result Comment: Unhairer nicole kidney disease could be indicated at eGFR's of less than 60 mL/min/1.73m2. Kidney failure is indicated at less than 15 mL/min/1.73m2. Performed By: #### 1 4454737, 5537975, 8638455, 41922158, 9496382, 96741921, 4079279, 1179591 ####[address] [place] [address] Coding Summary.on 02-05-2022 Coding Summary. CD:[id number] G h0bWw+PGhlYWQ+JX1BIGS hK14puFSfnW5UT3mMBS3P DHCWKQEEUB7NDX8tpJO9V FkpU6FkifFl SdslhBRaBS38EQz9TMF7o AhkVDekgF5xaWGcP8c8Fa LeMJ18dV18NEskWBUkBgK 3LjZpbjsgbWFy X1roJnPaoFDwZqd+PHRhY mxlIHdpZHRoPScxMDAlJy AosVjbAR8nIj8fTJQbMYM vbGxhcHNlOiBj x4nqWWPeFMhqNT6iuOajZ 8JonUX4TSUri0e2Kr51dT I+IAKeFCM7aWoyWSuar90 7IoHdo9noLTI9 sEXiSJtaSYB9V51dm1X8O DGpWUCzGIZ5rPT1pM7jdZ wgjlafR9JwmNZxDcM3SXP 4wIYwcE0hbOuc dvabpR1vHtm+V58PFG2HB KLALF4SFps5Z4HrDfltjD I+IG68AFEyMW40cMWiaGZ xt1cemRb9EuHk SKVxGAS1wXucYJnez9UlN OIlU76vbXBqd9E3SNMpnH ugxKKwDmWseSW2zO2rVWm ksbkbp4cewxht Agpmw2jcsu66kN53M19aG VvyYLTwQGS7NEHhWLCiiW gfbl8wuX8kYh3+VEdez0k rm6ykmWy5HiWi GOSbbdZvmBbnZKZ5t2VjS s43D2PknCsqs0OfYgo0we 60lGCdc2E5zLS1SLfyAEN ikG5qHPxvHlL2 DOJkJeKvjM46lQWsTHpqE l1yvKteaJaoMR5qDZSrpl ibVKBtaC6zPBVrtTZmySz bUY8zNGJjnlvd x537ZhHtATY8KHZvyAZrG 3FiyT5iPaGvONNfBMMyH8 WqcTHwTVjzW367UFfsAnN 6KZTnhtLjH8Dk VPVyhSkpAeX4k4C5Hh5Wi 7IniiehVLP7AZriOEIsGi XsPsAnBuO4X9GqHlb1DWH twJjsMS4pU7Rd PIDdvzdapbcmrBV3WFJpQ VQqiE30qBMmSChwZt1ww6 E0n440NWRyRWQqeC46Bp6 udDogMTBwdCBU xJ2dwzvtu2xdgdwkRkHuU SMfKEc4RSo7MXTzvUyoDu EcCCU9FwB1KUK1fLGstU9 orJixenenhE9c Oyc+T12uxM5hCAD0GYX9s pcvRDDcvlJiVJ11CI92V4 RyPjwvdGFibGU+PGRpdiB meCzoVC6yWuXz u0msc9RwOHmrQ3VeFBDlM VhfVkb8WUKmSXH7cWE6yK 9uMEGoJXijs2V1mRL1T1F ixvSwsg4lg3sc OHMfRFjrU85cvLAjg7F0F JDswHJ8XCSehHsyRsVbxF 93Oyc+AAKngTyeq9DpRye ha9gdu5byrGm0 XjGbYVUkswCerWhfBBQ4t 1DgYc27P89qCInaGSRzRY BiCHVnYTTraZryxf9viS6 wIi8+PGNvbCB3 jIC7fO5cAUNsWaT1YXrdR 837JyLrgBKeGduox1suo3 kowDb6UwChJHChomHsmOt fKNV2m5VqJm71 B93mTPrsOSVwORIoYZLkJ HAoiOenea4jzD1aPi4+PC 2hh2htdw50aL38uEB+PHR dQTN6jDrzTKlc WUJfgB5dPMxkEvQ9YJPzF oRylB33iIDsHLskFt3foC dpsSzmFS4wLTKxamjnn52 5GoNnb6lgMEDk bHRsFJrxSHK3O48dp1M6K RLfYTPoNGS6oQK1hL4haM lnbjogbGVmdDsgdmVydGl mYDqfMHnqA934 IHRvcDsnPlBhdGllbnQgT ePoWWi3I7CqFio2VCWogJ wdTV2hgAViDGuvZk8jmBt kmDsmOI0jOEFn usjgn843UnHfd1sjRGNvx TZdMLwgPRH9H35fd3Y6OD CmTGHyBZY0qEC5fF4yuKc nbjogbGVmdDsg bxFgaLacXIftBClaK661X HRvcDsnPkJpcnRoIERhdG Y8RY92ZO83oTCbh3J8jUP 3Z0QnVOBiszrq wglvfAU5VWJkGHXtcK26W c4avWjkFx8fJSAzYLZ1JY SdvWDyT8ZzmG3fYbLeCYM fDPJxL9KzyCTu LDbcU189BDonMeV7UBObd kYqW8UoNELwyMliJqR7o3 X4Ep7ET6J3QL67YC92aSO wx1Q6vTX2U5Ji VACkkumeaipwrEM3TAFdG NNwlW45Ly1mpQtbBz1eNG TjQZL9TRDffQIoE4YdnU6 yOiAjMDAwMDAw R7JttXCcYTlgM792QQqfN dD6JRJhvxXoS6GoHJVzeX pdRqX7v7V9Dd9ROGz0XE6 5LK32fKTsf9U9 xBU8E7SwLJRdbxklckroi SX8LUOzFLVacA34Qm0jdI qdMb1bLBPfUCD2DLRmhFY aA6LwwP5rOuQl RYTbMULyR1ImlFYcHSfaT 174ISziCfJ7IPKduyLbT7 EaNTUopQlrJrE4f4G3Bm5 PWUToEM75HAI5 sIY7GY46LY82K7XfHkvfv GFibGU+PHRhYmxlIHdpZH RoPScxMDAlJyBzdHlsZT0 vGi8xLTFhVPUp mUnvoAAbDfTwy8vaTEPgJ ZrdYP9khGmgZ9JfhFC3OZ Xxv7n1Iw80G60wC6DtaQM +PSFzdRW3pIF0 gQ3gEmSbFrS9MKtnR649S nFshQGhQhpgu0jbx1jhwU z3VqI9KEJdyzTipMnbHZD 4u4IdQn03A88i IHdpZHRoPSIxNSUiIHZhb Qvurc2vnP7uEf3+PGNvbC H2rUT1rP8xEbXqYpQ4DMj oJ453JqTvzHEi Prtut8qvp1kazUe9QbZoB SJdikHppZyqFRL3h1ItEy 48Q3NdvFzmb9FwMap4xl2 1sUOtk8G9fMA6 E3KgOVBcfpuodMGtkNvgN Q6jSQHcxhnzMEKwrA0hPK TvP4c4JiMwLjG7HVjsZ7D vuxI9LPCflTDd XNeiZUO0J09qh6W4TQZqE PUhFOC3pDK9eX4odLnpyz ogbGVmdDsgdmVydGljYWw eALxaP859OKXs tFonYDIumF4gMNTooMSbl ExySX5bFCPbrhyzDxHVLB 9XYiYsIFKRJ1JXVtRNSLA EYD41OV58oTHk q4E7pUN6G5BpHPCkxurnh mjusNT9TAFeDJWupN73lW GqUNxdQn2jt8U4r446BJJ lWLQxaT69Hw9d cBxuTNAazPVBcM0qitynz 4ddjpjeCjUlSIHbUJq6EJ h4XDQwbModJaCqRPI9MwD 9XQA9aNKltA7t bGmwmhpyrF9hBoi+MTIvM XtyMLt1KBifeKJ+PHRkIH J8jBkvNPyqDRKrsG8gJPG uA1o3KkVkUnX1 BYejS1EvRVBgyeezDs52r D5nDkOjHfW3SHdsF4Qnaj H3IBUygJSbROwuCFH6T66 fe8G7RIZoWONr XYO1gVQ6rU5xoOmuymfhh GVmdDsgdmVydGljYWwtYW keT161QLFwxRoyVjTmPWy eRWCkUK60WR53 vOFhj7Z0fKY6F8OaQHZsv gxegbmqpQV9KVVzATShzW 47qCGeBWvfPk1jg9L1o31 0ECHmSNRqjQ34 Wo4awPueWPMnsGYTiU3kp gumk2mztzkoKaTpLPXiPD a2YSt1PCJfgZpuGiNrNOZ 4LqD0WLI7yWJp vZ8kbYsnoevcjX6fOdn+R vXaPHmeKZ00PO15oLUby3 C1lHV4Q3TpHJBdufczswt brNI4ESUdRNCx sT85qFJwSNryDx3nw8A5x 663BVNpYRZfdP68Sz8niP plDNQggCZRoS0whzzts1j vcjogIzAwMDAw EGc3QRj1DSZlmCgnCdXzR XA4CoY4LWY3cLAfyM6xjN dxshyqzY2lOat+FN5jhrf ktnA4YH20ED77 Q0CmRtakzSHruMA+PHRhY mxlIHdpZHRoPScxMDAlJy ZovGtcIU6iGp1iUKNeMWA vbGxhcHNlOiBj e0mcZRJjHRmxND1ezPgfK 8TytCQ7NRFme9t1Db94R6 8rX2CeeKS+KNVpiQJ6nFE 4iN8hFdXaQgM9 UDxyD883IoXpqLYdOkdsb 2iqo8babIx6UmWoZULllo TczGbhNNS5f3EjGr98Q84 sIHdpZHRoPSIy ANZhEDXjwEzcgg8rqP7oZ i8+AGYbyNM0bYC4wU7aOk XlGkF4BXqxY537EyFriSX iVvqbW34kX5Gm dXA+MQYtAcd3HZPzmJrwZ W8qtQQcAMdfRt2qPWN5Af TfCiBiKBdvR9RdFMRgcow mdhdqbGN9DNQu MBDbmA94Ue6gkPbmWw4rV UVpBRF4NIJcqAGpF1YeaH 5gBgZnVJAsPCInC0UvtIY jIRkrG344VFhy HwX1CRDgtiKxW8FkMQNzf OvtFtZ9p2T2El3ZaYqbmO KoPX4zTrMlFSa4F1QpDcs 8LCSavPxaTD8k yQGoKUhsIs9rhDrtpSvyV A1uNWBjklkqt272YkRfo9 ntUGZnvNEyVHpkABU2K10 ho7R5YVPvTMOt SRP7iTZ6bR0rqFtlmwvtb GVmdDsgdmVydGljYWwtYW eeL876TCHioAbuQqGADsx 0B8KrSuv4VGJh bRoeYV6uxCObUNtsKp8mq UpwdMtxDC9yKDQjfjcqi2 78BdRdg2ymVPToyBIwQId uEVH4S13us5V8 FIGcDLNwOMX5rVY4hP3ai GlnbjogbGVmdDsgdmVydG yoYKqnWMnsZ984UWRbgIs hFj0MZla9I5Kl Eea7EOJmzOseUQ1nfQCrF ZenJh8xnLrilPguQR6gPH Tyucdco069GrPyb0kyGST wcHQgVGltZXM7 Y13xc8J5DRKgSKSvYPF1m YJ1aN5amUolyjsmbMQbbK kxaeUqlYsnEEqkORasI03 6IHRvcDsnPlBh eWVyOjwvdGQ+UN29gp86W 1UwUgdlDmq3TFMaMYI8hW D0sC8uSSArVJlbq3Q7qXD 7Y4KezyRfkf2f b2xs (more content not included)... Normal [facility] Discharge Instructionson Discharge Instructions [id number] Normal [facility] ED Clinical Summaryon 2021 ED Clinical Summary [place] [id number] ED Clinical Summary Person Information Name: DENISHA OWEN [facility] Age: 41 Years : 1980 Sex: Female Language: Algerian PCP: Katerine Palmer MD Marital Status: Phone: [phone] Visit Id: Visit Reason: Ankle pain-swelling; Ankle injury - Minor; LT ANKLE INJURY Speciality: Acuity: 4 Enc Type: Emergency Med Service: Emergency Arrival: 02/04/2022 20:27:41 Discharge: 02/04/2022 22:13:21 LOS: 000 01:46 Checkin: 02/04/2022 20:27:41 Checkout: 02/04/2022 22:13:21 Dispo Type: Home (Routine DC) EVENTS: Event Name Event Status Request Date/Time Start Date/Time Complete Date/Time Arrive Complete 02/04/2022 20:27:41 02/04/2022 20:27:41 02/04/2022 20:27:41 Document Home Meds Request 02/04/2022 20:27:41 Triage Complete 02/04/2022 20:27:41 02/04/2022 20:38:12 02/04/2022 20:38:12 Bed Assign Complete 02/04/2022 20:38:34 02/04/2022 20:38:34 02/04/2022 20:38:34 Dr Exam Complete 02/04/2022 20:38:34 02/04/2022 20:39:09 02/04/2022 20:39:09 RN Exam Complete 02/04/2022 20:38:34 02/04/2022 20:53:03 02/04/2022 20:53:03 Registration Complete 02/04/2022 20:39:09 02/04/2022 20:59:53 02/04/2022 20:59:53 Dr Exam Complete 02/04/2022 20:43:51 02/04/2022 20:43:51 02/04/2022 20:43:51 X-Ray Complete 02/04/2022 20:49:44 02/04/2022 20:55:02 02/04/2022 21:06:15 Reg Complete Request 02/04/2022 20:59:53 Reg Bed Request Complete 02/04/2022 20:59:53 02/04/2022 20:59:53 02/04/2022 20:59:53 Wet Read Request 02/04/2022 21:06:15 Patient Care Request 02/04/2022 21:31:55 Discharge Complete 02/04/2022 21:32:01 02/04/2022 22:13:26 02/04/2022 22:13:26 Transfer Complete 02/04/2022 22:13:26 02/04/2022 22:13:26 02/04/2022 22:13:26 ADDRESS: [address] [place] [id number] [facility] DOC NOTES: MEDICAL INFORMATION: Prescriptions Given: Medications to Continue with No Changes Other Medications acetaminophen-hydroco done (Nageezi 5/325 Tab) 1 Tablets By Mouth every 4 hours as needed as needed for pain. acetaminophen-hydroco done (Nageezi 325 mg-5 mg oral tablet) 1 Tablets By Mouth every 4 hours as needed for pain. Refills: 0. acetaminophen-hydroco done (Nageezi 325 mg-5 mg oral tablet) 1 Tablets By Mouth every 4 hours as needed for pain. Refills: 0. albuterol (Ventolin HFA 90 mcg/inh Aerosol) 2 Puffs Inhalation 4 times a day as needed for wheezing. Refills: 0. escitalopram (Lexapro) By Mouth every day. famotidine (Pepcid 40 mg Tab) 1 Tablets By Mouth once a day (at bedtime). Refills: 0. famotidine (Pepcid) 1 tablet By Mouth every day. ondansetron 2 times a day. promethazine (Phenergan 25 mg Tab) 1 Tablets By Mouth every 6 hours. Take one by mouth every six hours for nausea and vomiting. Refills: 0. promethazine (Phenergan) 25 Milligram By Mouth every 6 hours as needed Nausea. sertraline By Mouth every day. sertraline (Zoloft 100 mg Tab) 0.5 Tablets By Mouth every day. TAKING ONLY 50 MG. PATIENT EDUCATION INFORMATION: Instructions: Cast or Splint Care, Adult, [id number] Follow up: With: Address: When: Ruben Shelton [address] [place] [address] Harir (1) In 3 days 02/07/2022 Comments: Follow-up with Dr. Shelton for further evaluation of your left ankle injury. With: Address: When: Katerine Palmer [place] [address] Harir (1) In 3 days 02/07/2022 Comments: Follow-up with your primary care provider in 3 to 5 days. If symptoms worsen, do not improve, or new symptoms arise please report back to emergency department for further evaluation. DIAGNOSIS: Fibula fracture; Left ankle injury Normal [facility] ED Note-Physicianon 02-06-20 ED Note-Physician Basic Information Time Seen: Barber BARFIELD, Kei Esteves 02/04/2022 20:39 Chief Complaint pt to ED with c/o rolling L ankle playing volleyball. swelling noted to L ankle. MSPs intact, states numbness/tingling but has sensation. ambulatory into ED. History of Present Illness A 41-year-old female reports the emergency department with a chief complaint of left ankle pain. She states that she was playing volleyball and jumped up and came down and rolled her left ankle. States she felt like she heard a pop. She reports that she did have some swelling on her left ankle. States that she has a little numbness or tingling in the area, but can feel things. States that she is able to walk on it. She states that pain does radiate up her ankle up her leg somewhat as well. She denies taking anything for pain at this time. States that she happened, so she drove immediately to emergency department to get checked out. Denies any fall or hitting her head. Denies being on any blood thinners. Review of Systems A 10 point review of systems is negative except as noted above. Medical and Surgical History: Reviewed and noted Social history: Lives at home Family History: Reviewed. Tobacco: User Physical Exam Vitals & Measurements T: 36.7 ?C(Oral) HR: 74(Peripheral) RR: 16 BP: 125/73 SpO2: 97% HT: 170 cm WT: 78 kg BMI: 26.99 General: The patient appears well and in no apparent distress. Patient is resting comfortably in chair. Skin: Warm, dry, no pallor noted. Head: Normocephalic, atraumatic Neck: No JVD Eye: PERRLA, EOMI ENT: Moist mucus membranes Cardiovascular: Regular rate normal peripheral perfusion. Pedal pulses +2 bilaterally Respiratory: No respiratory distress no accessory muscle use no obvious audible wheezing Chest Wall: no deformity Musculoskeletal: Limited range of motion of left ankle due to pain. No deformity noted. Mild swelling on the lateral aspect of the left ankle. Tenderness to palpation on the lateral malleolus extending up the lateral side of the penn. GI: No obvious distention Neurological: A&O moves all extremities equal strength and symmetry Psychiatric: Cooperative and appropriate Medical Decision Making A 41-year-old female reports emergency department with a chief complaint of rolling her left ankle. States that she did not hit her head or lose consciousness. Denies any other injury. He reports that she is able to walk on it. On physical examination the left leg is neurovascularly intact. She has limited range of motion and pain on the left lateral aspect of the ankle that extends proximally up the ankle somewhat as well. Pedal pulses are intact. Based on patient's injury, we did do an x-ray. X-ray revealed a possible fracture of the distal fibula. I did discuss this with the patient. Discussed that radiology will read the x-ray first for tomorrow morning, but we will treat this as it is possible fracture. Due to this, we will place the patient in a surgical boot. She is to follow-up with Dr. Shelton for further evaluation. Patient was understanding of this. Discussed he needs to continue to rest, ice, compress, and elevate as well as take ibuprofen Tylenol for pain to reduce inflammation and swelling. Follow-up with your primary care provider in 3 to 5 days. If symptoms worsen, do not improve, or new symptoms arise please report back to emergency department for further evaluation. The patient was understanding and agreeable to plan moving forward. Assessment/Plan Fibula fracture (S82.409A: Unspecified fracture of shaft of unspecified fibula, initial encounter for closed fracture) Left ankle injury (S99.912A: Unspecified injury of left ankle, initial encounter) Orders: Surgical Boot XR Ankle 3+ Views Left XR Tib/Fib Left 2 View Disposition Plan Patient Discharge Condition Stable Discharge Disposition To home Discharge Prescription List Prescriptions No active prescription medications Follow-up With When Contact Information Ruben Shelton In 3 days 02/07/2022 EST [address] [place] [place] [address]- Business (1) Additional Instructions: Follow-up with Dr. Shelton for further evaluation of your left ankle injury. Katerine Palmer In 3 days 02/07/[address] [place] [address]- Business (1) Additional Instructions: Follow-up with your primary care provider in 3 to 5 days. If symptoms worsen, do not improve, or new symptoms arise please report back to emergency department for further evaluation. Patient Education Cast or Splint Care, Adult, [id number] Attestation Patient seen and evaluated by the physician communication assistant. Attending physician was present in the emergency department and supervised care. This visit was performed by both the physician and an APC. I performed all aspects of the MDM as documented. This report was transcribed using voice recognition software. Every effort was made to ensure accuracy, however, inadvertently computerized oral hygienist mistakes may (more content not included)... Normal [facility] Comment on above: Result Comment: Elec tronically Signed By: Kei Blandon PA-C\.br\Date and Time Signed: 02/04/22 22:32 EST\.br\Electronically Co-Signed By: Richie Ross DO.víctor\Date and Time Co-Signed: 02/05/22 03:24 EST ED Patient Education Noteon 02-05-2022 ED Patient Education Note Orthopedics Cast or Splint Care, Adult Casts and splints are supports that are worn to protect broken bones and other injuries. A cast or splint may hold a bone still and in the correct position while it heals. Casts and splints may also help to ease pain, swelling, and muscle spasms. How to care for your cast ? Do not stick anything inside the cast to scratch your skin. ? Check the skin around the cast every day. Tell your doctor about any concerns. ? You may put lotion on dry skin around the edges of the cast. Do not put lotion on the skin under the cast. ? Keep the cast clean. ? If the cast is not waterproof: ? Do not let it get wet. ? Cover it with a watertight covering when you take a bath or a shower. How to care for your splint ? Wear it as told by your doctor. Take it off only as told by your doctor. ? Loosen the splint if your fingers or toes tingle, get numb, or turn cold and blue. ? Keep the splint clean. ? If the splint is not waterproof: ? Do not let it get wet. ? Cover it with a watertight covering when you take a bath or a shower. Follow these instructions at home: Bathing ? Do not take baths or swim until your doctor says it is okay. Ask your doctor if you can take showers. You may only be allowed to take sponge baths for bathing. ? If your cast or splint is not waterproof, cover it with a watertight covering when you take a bath or shower. Managing pain, stiffness, and swelling ? Move your fingers or toes often to avoid stiffness and to lessen swelling. ? Raise (elevate) the injured area above the level of your heart while sitting or lying down. Safety ? Do not use the injured limb to support your body weight until your doctor says that it is okay. ? Use crutches or other assistive devices as told by your doctor. General instructions ? Do not put pressure on any part of the cast or splint until it is fully hardened. This may take many hours. ? Return to your normal activities as told by your doctor. Ask your doctor what activities are safe for you. ? Keep all follow-up visits as told by your doctor. This is important. Contact a doctor if: ? Your cast or splint gets damaged. ? The skin around the cast gets red or raw. ? The skin under the cast is very itchy or painful. ? Your cast or splint feels very uncomfortable. ? Your cast or splint is too tight or too loose. ? Your cast becomes wet or it starts to have a soft spot or area. ? You get an object stuck under your cast. Get help right away if: ? Your pain gets worse. ? The injured area tingles, gets numb, or turns blue and cold. ? The part of your body above or below the cast is swollen and it turns a different color (is discolored). ? You cannot feel or move your fingers or toes. ? There is fluid leaking through the cast. ? You have very bad pain or pressure under the cast. ? You have trouble breathing. ? You have shortness of breath. ? You have chest pain. This information is not intended to replace advice given to you by your health care provider. Make sure you discuss any questions you have with your health care provider. Document Released: 07/03/2011 Document Revised: 06/23/2019 Document Reviewed: 02/21/2017 Elsevier Patient Education ? 2019 [employer] Normal [facility] ED Patient Summaryon 022 ED Patient Summary [place] [id number] Patient Discharge Instructions Person Information Name: DENISHA OWEN Age: 41 Years Arrival Date: 02/04/2022 20:27:41 Discharge Diagnosis: Fibula fracture; Left ankle injury Primary Care Physician: Katerine Palmer MD Provider Information Primary Provider: Richie Ross DO [place] Secretary:None The exam and treatment you received in the Emergency Department were for an urgent problem and are not intended as complete care. It is important that you follow up with a doctor, nurse practitioner, or physician?s communication assistant for ongoing care. If your symptoms become worse or you do not improve as expected and you are unable to reach your usual health care provider, you should return to the Emergency Department. We are available 24 hours a day. DENISHA OWEN has been given the following list of patient education materials, prescriptions and follow-up instructions: Follow-up Instructions: With: Address: When: Ruben Shelton [address] [place] [address] Harir (1) In 3 days 02/07/2022 Comments: Follow-up with Dr. Shelton for further evaluation of your left ankle injury. With: Address: When: Katerine Palmer [place] [address] Harir (1) In 3 days 02/07/2022 Comments: Follow-up with your primary care provider in 3 to 5 days. If symptoms worsen, do not improve, or new symptoms arise please report back to emergency department for further evaluation. In the event that this physician does not participate in your insurance network, please consult with your insurance company to find a nearby participating provider. Patient Education Materials: Cast or Splint Care, Adult, Ewse-bd-Yrpn A MESSAGE TO ALL PATIENTS REGARDING OPIOIDS PRESCRIPTION OPIOIDS: WHAT YOU NEED TO KNOW Prescription opioids can be used to help relieve ejchdpqp-ny-lixhgr pain and are often prescribed following a surgery or injury, or for certain health conditions. These medications can be an important part of the treatment but also come with serious risks. It is important to work with your healthcare provider to make sure you are getting the safest, most effective care. WHAT ARE THE RISKS AND SIDE EFFECTS OF OPIOID USE? Prescription opioids carry serious risks of addiction and overdose, especially with prolonged use. An opioid overdose, often marked by slowed breathing, can cause sudden . The use of prescription opioids can have a number of side effects as well, even when taken as directed: ? Tolerance?meaning you might need to take more of the medication for the same pain relief ? Physical dependence?meaning you have symptoms of withdrawal when a medication is stopped ? Increased sensitivity to pain ? Constipation ? Nausea, vomiting, and dry mouth ? Sleepiness and dizziness ? Confusion ? Depression ? Low levels of testosterone that can result in lower sex drive, energy, and strength ? Itching and sweating RISKS ARE GREATER WITH: ? History of drug misuse, substance use disorder, or overdose ? Mental health conditions (such as depression or anxiety) ? Sleep apnea ? Older age (65 years and older) ? Avoid alcohol while taking prescription opioids. Also, unless specifically advised by your health care provider, medications to avoid include: ? Benzodiazepines (such as Xanax or Valium) ? Muscle relaxants (such as Soma or Flexeril) ? Hypnotics (such as Ambien or Lunesta) ? Other prescription opioids KNOW YOUR OPTIONS Talk to your health care provider about ways to manage your pain that don?t involve prescription opioids. Some of these options may actually work better and have fewer risks and side effects. Options may include: ? Pain relievers such as acetaminophen, ibuprofen, and naproxen ? Some medication that are also used for depression or seizures ? Physical therapy and exercise ? Cognitive behavioral therapy, a psychological, goal-directed approach, in which patients learn how to modify physical, behavioral, and emotional triggers of pain and stress. IF YOU ARE PRESCRIBED OPIOIDS FOR PAIN: ? Never take opioids in greater amounts or more often than prescribed. ? Follow up with your primary health care provider. o Work together to create a plan on how to manage your pain. o Talk about ways to help manage your pain that don?t involve prescription opioids. o Talk about any and all concerns and side effects. ? Help prevent misuse and abuse o Never sell or share prescription opioids. o Never use another person?s prescription opioids. ? Store prescription opioids in a secure place and out of reach of others (this may include visitors, children, friends, and family). ? Safely dispose of unused prescription opioids: Find your community drug take-back program or your (more content not included)... Normal [facility] XR Ankle 3+ Views Lefton XR Ankle 3+ Views Left Exam Date/Time: 02/04/2022 21:06 EST Reason for Exam: Pain Report IMPRESSION: NO EVIDENCE OF A FRACTURE OR OTHER BONE ABNORMALITY IN THE LEFT ANKLE. CLINICAL HISTORY: Pain COMPARISON: None available. FINDINGS: AP, lateral and oblique views of the left ankle demonstrates no fracture, dislocation or other bone abnormality. FINAL REPORT Dictated: 02/05/2022 9:52 am Tom Kahn MD Signed (Electronic Signature): 02/05/2022 9:52 am Signed by: Tom Kahn MD Transcribed by: NABIL Technologist: KRERY [facility] XR Tib/Fib Left 2 Viewon XR Tib/Fib Left 2 View Exam Date/Time: 02/04/2022 21:06 EST Reason for Exam: Leg pain Report IMPRESSION: NEGATIVE LEFT TIBIA AND FIBULA. CLINICAL INFORMATION: Leg pain COMPARISON: None. FINDINGS: The left tibia and fibula appear normal without evidence of fracture or dislocation. FINAL REPORT Dictated: 02/05/2022 9:51 am Tom Kahn MD Signed (Electronic Signature): 02/05/2022 9:51 am Signed by: Tom Kahn MD Transcribed by: NABIL Technologist: KERRY [facility] Consent for Treatmenton 01-16 Consent for Treatment [id number]:[id number] [facility] Vital Signs Date Time Vital Sign Value Performing Clinician No tam 10-26-2022 18:32-0400 Diastolic blood pressure 74 mm[Hg] [employer] [facility] 10-26-2022 18:32-0400 Heart rate 57 /min [employer] [facility] 10-26-2022 18:32-0400 Respiratory rate 14 /min [employer] [facility] 10-26-2022 18:32-0400 SaO2% (BldA) [Mass fraction] 100 % [employer] [facility] 10-26-2022 18:32-0400 Systolic blood pressure 100 mm[Hg] [employer] [facility] 10-26-2022 18:00-0400 Heart rate 64 /min [employer]ov[employer] [facility] 10-26-2022 18:00-0400 SaO2% (BldA) [Mass fraction] 95 % [employer] [facility] 10-26-2022 17:10-0400 Body temperature 97.88 [degF] Jeovanny Radha [facility] 10-26-2022 17:10-0400 Diastolic blood pressure 92 mm[Hg] Jeovanny Radha [facility] 10-26-2022 17:10-0400 Heart rate 69 /min Jeovanny Radha [facility] 10-26-2022 17:10-0400 Respiratory rate 14 /min Jeovanny Radha [facility] 10-26-2022 17:10-0400 SaO2% (BldA) [Mass fraction] 100 % Jeovanny Radha [facility] 10-26-2022 17:10-0400 Systolic blood pressure 128 mm[Hg] Jeovanny Radha [facility] 04-26-2022 18:00-0500 Diastolic blood pressure 70 mm[Hg] Jeovanny Radha [facility] 04-26-2022 18:00-0500 Heart rate 66 /min Jeovanny Radha [facility] 04-26-2022 18:00-0500 Mean blood pressure 82 mm[Hg] Jeovanny Radha [facility] 04-26-2022 18:00-0500 Systolic blood pressure 105 mm[Hg] Jeovanny Radha [facility] 04-26-2022 17:30-0500 Diastolic blood pressure 63 mm[Hg] Jeovanny Radha [facility] 04-26-2022 17:30-0500 Heart rate 67 /min Jeovanny Radha [facility] 04-26-2022 17:30-0500 Mean blood pressure 79 mm[Hg] Jeovanny Radha [facility] 04-26-2022 17:30-0500 Respiratory rate 18 /min Jeovanny Vieirae [facility] 04-26-2022 17:30-0500 SaO2% (BldA) [Mass fraction] 98 % Jeovanny Vieirae [facility] 04-26-2022 17:30-0500 Systolic blood pressure 112 mm[Hg] Jeovanny Vieirae [facility] 04-26-2022 17:00-0500 Diastolic blood pressure 76 mm[Hg] Jeovanny Vieirae [facility] 04-26-2022 17:00-0500 Heart rate 80 /min Jeovanny Vieirae [facility] 04-26-2022 17:00-0500 Mean blood pressure 85 mm[Hg] Jeovanny Vieirae [facility] 04-26-2022 17:00-0500 Respiratory rate 25 /min Jeovanny Vieirae [facility] 04-26-2022 17:00-0500 SaO2% (BldA) [Mass fraction] 99 % Jeovanny Vieirae [facility] 04-26-2022 17:00-0500 Systolic blood pressure 104 mm[Hg] Jeovanny Vieirae [facility] 04-26-2022 16:57-0500 Body temperature 98.06 [degF] Jeovanny Radha [facility] 04-26-2022 16:57-0500 Heart rate 72 /min Jeovanny Vieirae [facility] 04-26-2022 16:57-0500 Respiratory rate 16 /min Jeovanny Vieirae [facility] 02-04-2022 20:34-0500 Body temperature 98.06 [degF] eder Ross [facility] 02-04-2022 20:34-0500 Diastolic blood pressure 73 mm[Hg] Richie Ross [facility] 02-04-2022 20:34-0500 Heart rate 74 /min Richie Ross [facility] 02-04-2022 20:34-0500 Respiratory rate 16 /[facility] 02-04-2022 20:34-0500 SaO2% (BldA) [Mass fraction] 97 % [facility] 02-04-2022 20:34-0500 Systolic blood pressure 125 mm[Hg] [facility] Encounters Encounter Date Encounter Type Care Provider Facility Start: 10-26-2022 End: 10-26-2022 Emergency department patient visit Jeovanny Garcia [place] [place]: 10-26-2022 End: 10-26-2022 Emergency department patient visit Jeovanny Garcia [facility] Start: 09-21-2022 End: 09-22-2022 ambulatory Mathieu JOSHI Facility:CD:[id number] Start: 04-26-2022 End: 04-26-2022 Emergency department patient visit Jeovanny Garcia [place] Start: 04-26-2022 End: 04-26-2022 Emergency department patient visit Jeovanny Garcia [facility] Start: 02-04-2022 End: 02-05-2022 Emergency department patient visit Richie Ross Facility[place] Start: 02-04-2022 End: 02-04-2022 Emergency department patient visit Richie Ross [facility] Start: 09-06-2019 End: 09-07-[address] MEEK BAHENA Facility: Start: 07-08-2018 Patient encounter procedure Facility:[facility] Procedures Date Procedure Procedure Detail Performing Clinician Start: 06-18-2013 Laparoscopic cholecystectomy Richie Ross Laparoscopy 1 Richie Ross Comment on above: x2 leep Richie Ross Immunizations Immunization Date Immunization Notes Care Provider Fa cility 07-06-2020 COVID-19, mRNA, LNP- S, PF, 30 mcg/0.3 mL dose Petrainn Zahiraen [facility] Comment on above: Reason for Medicatio n: Prophylaxis 06-15-2020 COVID-19, mRNA, LNP- S, PF, 30 mcg/0.3 mL dose Katerinylinn Zahiraen [facility] Comment on above: Reason for Medicatio n: Prophylaxis Payers Date Payer Category Payer Unknown [id number] [id number] [id number] 1978 Unknown [id number] 1978 Unknown [id number] [id number] [id number] 1978 Unknown [id number] 1978 Unknown [id number] 2.16.8 [id number] 1959 Unknown [id number] Social History Date Type Detail Facility Start: 04-10-2021 Tobacco smoking status Heavy t obacco smoker (finding) [facility] Sex Assigned At Female [facility] Tobacco Current vaping o r e-cigarette use Smokeless Tobacco Use:. [facility] Tobacco smoking status No Smokin g Status Entered [facility] Functional Status Date Assessment Result Facility 10-26-2022 Functional Status N/A [facility] 04-26-2022 Functional Status N/A [facility] 02-04-2022 Functional Status N/A [facility] Hospital Discharge instructions 10-26-2022 Note Date & Type Note Facility 10-26-2022 Hospital Discharg e instructions Follow Up Care 10/26/2022 17:08:37 With:Leland Ford Address: [address] [place], [place] [address] [address] [address]- [phone] Business (1) When:10/29/2022 18:14:31 With:Katerine Palmer Address: [address] [place] [address]- Business (1) When:Within 3 Day(s) [facility] Evaluation + Plan note 10-26-2022 Note Date & Type Note Facility 10-26-2022 Evaluation + Plan note Extrac dmitri from: Title:ED Note Author:Jeovanny Garcia DO Date:10/15 05/09 Abdominal pain (R10.9: Unspe cified abdominal pain) Orders: dicyclomine, 20 mg = 1 tab(s), Oral, TID, X 7 day(s), # 21 tab(s), Refills(s) 0, Pharmacy: [facility]/pharmacy #[id number], 170, cm, 10/26/22 17:15:00 EDT, Height/Length Dosing, 75, kg, 10/26/22 17:15:00 EDT, Weight Dosing ondansetron, 4 mg = 1 tab(s), Oral, q6hr, PRN Nausea, Take one tab by mouth every six hours as needed for nausea, # 10 tab(s), Refills(s) 0, Pharmacy: [facility]/pharmacy #[id number], 170, cm, 10/26/22 17:15:00 EDT, Height/Length Dosing, 75, kg, 10/26/22 17:15:00 EDT, Weight D... Automated Diff Basic Metabolic Panel CBC w/ Auto Diff CT Abdomen/Pelvis w/ Contrast eGFR Extra Blue Tube Extra SST Tube Hepatic Function Panel Lactic Acid Lipase Level Saline Lock Insert UA With Cult Reflex [facility] Hospital Discharge instructions 04-26-2022 Note Date & Type Note Facility 04-26-2022 Hospital Discharg e instructions Follow Up Care 04/26/2022 16:56:48 With:Katerine Palmer Address: [address] [place] [address]- Business (1) When:Within 3 Day(s) [facility] Evaluation + Plan note 04-26-2022 Note Date & Type Note Facility 04-26-2022 Evaluation + Plan note Extrac dmitri from: Title:ED Note Author:Jeovanny Garcia DO Date:04/17 Chest pain (R07.9: Chest alina n, unspecified) Orders: Automated Diff Basic Metabolic Panel CBC w/ Auto Diff ED Cardiac Monitoring eGFR Hepatic Function Panel Lipase Level Oxygen Saturation Oxygen Therapy PT & PTT Saline Lock Insert Troponin 0 Hr. Troponin 3 Hr. Troponin 6 Hr. Troponin 9 Hr. XR Chest Single View [facility] Hospital Discharge instructions 02-05-2022 Note Date & Type Note Facility 02-05-2022 Hospital Discharg e instructions Patient Education 02/04/2022 22:13:26 Cast or Splint Care, Adult, Xnlr-oo-Vucs Cast or Splint Care, Adult Casts and splints are supports that are worn to protect broken bones and other injuries. A cast or splint may hold a bone still and in the correct position while it heals. Casts and splints may also help to ease pain, swelling, and muscle spasms. How to care for your cast Do not stick anything inside the cast to scratch your skin. Check the skin around the cast every day. Tell your doctor about any concerns. You may put lotion on dry skin around the edges of the cast. Do not put lotion on the skin under the cast. Keep the cast clean. If the cast is not waterproof: ?Do not let it get wet. ?Cover it with a watertight covering when you take a bath or a shower. How to care for your splint Wear it as told by your doctor. Take it off only as told by your doctor. Loosen the splint if your fingers or toes tingle, get numb, or turn cold and blue. Keep the splint clean. If the splint is not waterproof: ?Do not let it get wet. ?Cover it with a watertight covering when you take a bath or a shower. Follow these instructions at home: Bathing Do not take baths or swim until your doctor says it is okay. Ask your doctor if you can take showers. You may only be allowed to take sponge baths for bathing. If your cast or splint is not waterproof, cover it with a watertight covering when you take a bath or shower. Managing pain, stiffness, and swelling Move your fingers or toes often to avoid stiffness and to lessen swelling. Raise (elevate) the injured area above the level of your heart while sitting or lying down. Safety Do not use the injured limb to support your body weight until your doctor says that it is okay. Use crutches or other assistive devices as told by your doctor. General instructions Do not put pressure on any part of the cast or splint until it is fully hardened. This may take many hours. Return to your normal activities as told by your doctor. Ask your doctor what activities are safe for you. Keep all follow-up visits as told by your doctor. This is important. Contact a doctor if: Your cast or splint gets damaged. The skin around the cast gets red or raw. The skin under the cast is very itchy or painful. Your cast or splint feels very uncomfortable. Your cast or splint is too tight or too loose. Your cast becomes wet or it starts to have a soft spot or area. You get an object stuck under your cast. Get help right away if: Your pain gets worse. The injured area tingles, gets numb, or turns blue and cold. The part of your body above or below the cast is swollen and it turns a different color (is discolored). You cannot feel or move your fingers or toes. There is fluid leaking through the cast. You have very bad pain or pressure under the cast. You have trouble breathing. You have shortness of breath. You have chest pain. This information is not intended to replace advice given to you by your health care provider. Make sure you discuss any questions you have with your health care provider. Document Released: 07/03/2011 Document Revised: 06/23/2019 Document Reviewed: 02/21/2017 [employer] Patient Education 2020 [employer]. Follow Up Care 02/04/2022 20:30:22 With:Ruben Shelton Address: [address] [place] [address]- Business (1) When:02/07/2022 21:31:06 Comments:Follow-up with Dr. Shelton for further evaluation of your left ankle injury. With:Katerine Palmer Address: [address] [place] [address]- Business (1) When:02/07/2022 21:30:58 Comments:Follow-up with your primary care provider in 3 to 5 days. If symptoms worsen, do not improve, or new symptoms arise please report back to emergency department for further evaluation. [facility] Evaluation + Plan note 02-21-2021 Laboratory Note Date & Type Note Facility 02-21-2021 Evaluation + Plan note Future Scheduled [id number], SMITH 02/21/21 [facility] Hospital course Narrative Note Date & Type Note Facility Hospital course Narrative No data available for this section [facility] Progress note Note Date & Type Note Facility Progress note No data available for this section [facility] Summary Purpose Family History No Family History Records FoundNo Family History Records FoundNo Family History Records Found Advance Directives No Advanced Directives Records FoundNo Advanced Directives Records FoundNo Advanced Directives Records Found Additional Source Comments INFORMATION SOURCE (unrecogn ized section and content) DATE CREATED AUTHOR 07/09/2018 [facility] [place] DATE CREATED AUTHOR AUTHOR'S ORGANIZ ATION 12/27/[address] [facility] DATE CREATED AUTHOR AUTHOR'S ORGANIZ ATION 10/27/2022 [facility] Patient Care team informatio n (unrecognized section and content) Personnel Name: Katerine Palmer MD Address: Address: [address] [place] [address] Name: Janette Hadoop EngineerJaneth Personnel Name: Katerine Palmer MD Address: Address: [address] [place] [address]- Name: Janette Hadoop EngineerJaneth Personnel Name: Estela YAN Katerine David Address: Address: [address] [place] [address]- Name: Janette Hadoop EngineerJaneth FOR RECORDS PERTAINING TO PATIENTS WHO ARE OR HAVE BEEN ENROLLED IN A CHEMICAL DEPENDENCY/SUBSTANCEABUSE PROGRAM, SOME INFORMATION MAY BE OMITTED. This clinical summary was aggregated from multiple sources. Caution should be exercised in using it in the provision of clinical care. This summary normalizes information from multiple sources, and as a consequence, information in this document may materially change the coding, format and clinical context of patient data. In addition, data may be omitted in some cases. CLINICAL DECISIONS SHOULD BE BASED ON THE PRIMARY CLINICAL RECORDS. [facility] [employer] provides no warranty or guarantee of the accuracy or completeness of information in this document.
--- NOTE | 2023-05-15 08:17 | ED_ITS ---
HPI - Abdominal Pain General Chief Complaint: Abdominal Pain Stated Complaint: ABDOMINAL PAIN Time Seen by Provider: 05/15/23 08:17 Source: patient Mode of arrival: walk-in Limitations: no limitations History of Present Illness HPI narrative: This patient is here complaint of abdominal pain. It started about 3:00 yesterday afternoon. She did not sleep at all last night because of discomfort. She tried taking a muscle relaxant but it did not help. She has not had a bowel movement since yesterday. She has had previous cholecystectomy. She does have a history of cyst on her ovaries. She does not have any urinary symptoms such as frequency urgency dysuria or hematuria she has no back or flank pain. She drove herself here but she said the ride over here was very uncomfortable with most of her pain being referred to the right lower quadrant. She had a couple sips of coffee earlier today but nothing else to eat or drink. Related Data Home Medications Medication Instructions Recorded Confirmed escitalopram oxalate 10 mg tablet 10 mg PO DAILY 09/21/22 05/15/23 tizanidine 4 mg tablet 4 mg PO BEDTIME PRN muscle 09/21/22 05/15/23 spasticity sumatriptan succinate 25 mg tablet 25 mg PO Q2H PRN migraine headache 05/15/23 05/15/23 Allergies Allergy/AdvReac Type Severity Reaction Status Date / Time No Known Drug Allergies Allergy Verified 09/21/22 10:13 [facility] Medical History (Updated 05/15/23 @ 09:45 by Mariano Gonzalez MD) Bulging of cervical intervertebral disc ?M50.30 - Other cervical disc degeneration, unspecified cervical region (ICD- 10) Bulging lumbar disc ?M51.36 - Other intervertebral disc degeneration, lumbar region (ICD-10) Abdominal pain ?R10.9 - Unspecified abdominal pain (ICD-10) Surgical History History of cholecystectomy ?Z90.49 - Acquired absence of other specified parts of digestive tract (ICD- 10) H/O: hysterectomy ?Z90.710 - Acquired absence of both cervix and uterus (ICD-10) Family History (Updated 09/21/22 @ 13:09 by Roxana Hardwick) Grandmother Family history of cancer Family history of diabetes mellitus Family history of hypertension Social History (Updated 09/21/22 @ 13:11 by Roxana Hardwick) Within the past year, how often did you have a drink containing alcohol: never Score interpretation: A score less than 3 is consistent with normal alcohol consumption. 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 On HEENT examination airway is widely patent there is no conjunctivitis pharyngitis or upper airway symptomatology. Examination abdomen she has excellent bowel sounds in all quadrants. She has substantial tenderness to palpation in the left and the right lower quadrant with the right side being slightly more tender. There is no pulsatile masses. Heart sounds are normal. She has no respiratory distress. Constitutional Vital Signs, click to edit/add: Last Vital Signs Temp 98.1 F 05/15/23 07:57 Pulse 96 H 05/15/23 07:57 Resp 20 05/15/23 07:57 BP 117/77 05/15/23 07:57 Pulse Ox 98 05/15/23 08:08 O2 Del Method Room Air 05/15/23 08:08 Course Vital Signs Vital signs: Vital Signs Temperature 98.1 F 05/15/23 07:57 Pulse Rate 96 H 05/15/23 07:57 Respiratory Rate 20 05/15/23 07:57 Blood Pressure 117/77 05/15/23 07:57 Pulse Oximetry 96 05/15/23 07:57 Oxygen Delivery Method Room Air 05/15/23 07:57 Temperature 98.1 F 05/15/23 07:57 Pulse Rate 96 H 05/15/23 07:57 Respiratory Rate 20 05/15/23 07:57 Blood Pressure 117/77 05/15/23 07:57 Pulse Oximetry 98 05/15/23 08:08 Oxygen Delivery Method Room Air 05/15/23 08:08 MDM - Abdominal Pain MDM Narrative Medical decision making narrative: This patient underwent a CT scanning and laboratory testing. Her white blood c ell count is elevated and the CT report was called to me by the radiologist at approximately 9:30 AM. A call was placed for on-call surgeon and I did give report of the CT laboratory findings and clinical presentation to Dr. Mathieu Rosado's on-call surgeon at 0945 hrs. He would like the patient started on Rocephin and Flagyl. She be kept n.p.o. and admitted to the surgical service. Discharge Plan Discharge Chief Complaint: Abdominal Pain Clinical Impression: Acute appendicitis Patient Disposition: Admitted as Observation Time of Disposition Decision: 09:45 Prescriptions / Home Meds: No Action escitalopram oxalate 10 mg tablet 10 mg PO DAILY tizanidine 4 mg tablet 4 mg PO BEDTIME PRN (Reason: muscle spasticity) sumatriptan succinate 25 mg tablet 25 mg PO Q2H PRN (Reason: migraine headache) Referrals: DANILO HERNANDES [Primary Care Provider] - 1 week
--- NOTE | 2023-05-15 08:19 | CT_ITS ---
The [address] [address] Patient Name: DENISHA OWEN MRN: [id number] date: 1980 Sex: F Assigned Patient Location: ER Current Patient Location: Accession/Order Number: [id number] Exam Date: 05/15/2023 08:50 Report Date: 05/15/2023 09:32 At the request of: MARIANO GONZALEZ Procedure: CT abdomen pelvis w con EXAM: CT abdomen pelvis w con HISTORY: Lower abdominal pain, right greater than left. COMPARISON: CT dated 09/23/2022. TECHNIQUE: IV contrast only was in a sister. Sagittal and coronal reformatted images were produced. Dose reduction techniques were achieved by using automated exposure control and/or adjustment of mA and/or kV according to patient size and/or use of iterative reconstruction technique. FINDINGS: There is mild atelectasis versus scarring in the right lung base. The lung bases are otherwise clear. The visualized heart and great vessels are stable in size and configuration. The liver shows stable mild enlargement with diffuse fatty change. The spleen is borderline enlarged but enhances normally and is stable in size. The adrenal glands and pancreas are normal. Surgical changes of cholecystectomy. The kidneys enhance symmetrically. Both kidneys show a few very small simple cyst. There is no hydronephrosis and no stones are seen in the ureters. The aorta has a normal course and caliber. The large and small bowel are normal caliber. The appendix is markedly dilated and contains fluid, stool-like material, and a possible relatively lucent appendicolith. There is also suggestion of a circumferential area of narrowing and wall thickening at the base of the appendix. Surgical changes of hysterectomy. There is a normal appearing left ovarian cyst. The right ovary is mostly obscured but also shows a small grossly simple cyst. There is free fluid around the appendix and in the right adnexa. Urinary bladder is minimally filled but is grossly normal. There are no organized fluid collections to suggest abscess formation. No free air seen. Osseous structures are stable in appearance. CT/CT abdomen pelvis w con IMPRESSION: Findings are consistent with acute appendicitis. There is no definitive evidence of rupture. The free fluid is most likely due to the inflammatory process in the appendix. The appearance of the base of the appendix is indeterminate and could be seen with normal anatomy, chronic changes from inflammation, or a neoplastic process. Other stable findings as above. Findings were discussed with Dr. Mariano Gonzalez in the emergency department at 9:32 AM on 05/15/2023. Electronically authenticated by: GONZÁLEZ CHOWDHURY Date: 05/15/2023 09:32
[2023-05-15 08:30] LABS: Basophils Absolute Auto 0.1 10^3/uL (0.0-0.1); Basophils Percent Auto 0.4 % (0.2-2.0); Eosinophils Percent Auto 0.1 % (0.9-7.0); Hematocrit 38.7 % (36.0-48.0); Hemoglobin 12.9 g/dL (12.0-16.0); Immature Granulocytes Abs Auto 0.04 10^3/uL (0.00-0.03); Immature Granulocytes Pct Auto 0.3 % (0.0-0.5); Lymphocytes Absolute Auto 0.9 10^3/uL (1.2-3.8); Lymphocytes Percent Auto 5.9 % (20.5-60.0); Mean Corpuscular HGB Conc 33.3 g/dL (29.9-35.2); Mean Corpuscular Hemoglobin 29.4 pg (26.7-34.0); Mean Corpuscular Volume 88.2 fL (81.0-99.0); Mean Platelet Volume 9.5 fL (9.5-13.5); Monocytes Absolute Auto 1.1 10^3/uL (0.3-0.8); Neutrophils Absolute Auto 13.5 10^3/uL (1.4-6.5); Neutrophils Percent Auto 86.3 % (43.0-75.0); Platelet Count 287 10^3/uL (150-450); Red Blood Count 4.39 10^6/uL (4.20-5.40); Red Cell Distribution Width 11.9 % (11.0-15.0); White Blood Count 15.7 10^3/uL (4.0-11.0)
[2023-05-15] MEDS: KETOROLAC TROMETHAMINE 30 MG/ML VIAL IVP (08:31)
[2023-05-15] MEDS: 0.9 % SODIUM CHLORIDE 1,000 ML 999 ML IV (08:31)
[2023-05-15] MEDS: ONDANSETRON PF 4 MG/2 ML VIAL IV (08:32)
[2023-05-15 08:41] LABS: Anion Gap 9.9; BUN Creatinine Ratio 11.8; Calcium 8.4 mg/dL (8.5-10.1); Carbon Dioxide 29.8 mmol/L (21.0-32.0); Chloride 102 mmol/L (98-107); Estimated GFR (African America >60 (>=60); Estimated GFR (Non-African Ame >60 (>=60); Glucose 112 mg/dL (74-106); Potassium 3.7 mmol/L (3.5-5.1); Sodium 138 mmol/L (136-145)
[2023-05-15 08:57] LABS: HCG Qualitative NEGATIVE (NEGATIVE)
[2023-05-15 09:20] LABS: Bilirubin Urine NEGATIVE (NEGATIVE); Blood Urine NEGATIVE (NEGATIVE); Clarity Urine CLEAR (CLEAR); Color Urine YELLOW (YELLOW); Glucose Urine UA NEGATIVE (NEGATIVE); Ketones Urine NEGATIVE (NEGATIVE); Leukocyte Esterase Urine NEGATIVE (NEGATIVE); Nitrite Urine NEGATIVE (NEGATIVE); Protein Urine NEGATIVE (NEG/TRACE); Urobilinogen Urine 0.2 EU/dL (0.2-1.0)
[2023-05-15 09:23] LABS: Urine Microscopic Indicated NO
[2023-05-15] MEDS: MORPHINE SULFATE 2 MG/ML SYRINGE IV (09:49)
[2023-05-15] MEDS: CEFTRIAXONE 1,000 MG in 0.9 % SODIUM CHLORIDE 50 ML 100 MG IV (09:57)
[2023-05-15] MEDS: METRONIDAZOLE/SODIUM CHLORIDE 500 MG/100 ML PREMIX 100 MG IV (10:31)
--- OUTSIDE RECORDS SUMMARY | 2023-05-15 10:54 | XMS_ITS | CCD ---
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 Name Role Phone DR MEEK BAHENA Admitting [...] every four hours as needed for pain [place] 5/325 Tab 1 tab(s), Oral, q4hr as needed for pain, Refill(s) 0 Start Date: 06/18/13 Status: Ordered Start: 06-12-2013 [place] 325 mg-5 mg oral tablet 1 tab(s), Oral, q4hr for pain, 20 tab(s), Refill(s) 0 Start Date: 06/18/13 Status: Ordered dicyclomine hydrochloride 20 mg oral tablet (1 source) Anticholinergic Start: 10-26-2022 End: 11-02-2022 take 1 tablet by mouth three times daily dicyclomine 20 mg Tab 20 mg = 1 tab(s), Oral, TID, X 7 day(s), # 21 tab(s), Refills(s) 0, Pharmacy: [facility]/pharmacy #6173, 170, cm, 10/26/22 17:15:00 EDT, Height/Length [...] QID for wheezing, 18 gram, Refill(s) 0, [facility]/pharmacy #6173, 169, cm, 02/21/21 18:22:00 EST, Height/Length [...] nausea, # 10 tab(s), Refills(s) 0, Pharmacy: [facility]/pharmacy #6173, 170, cm, 10/26/22 17:15:00 EDT, Height/Length [...] 10-27-2022 RAD - Preliminary Cat Scan Report [id number]:127 Normal [facility] Auto Diffon 10-26-2022 Basophils/100 WBC (Bld) 0.6 % Normal 0.0-2.0 [facility] Comment on above: Order Comment: Order Added by Discern Expert. Performed By: #### 2 271561, 2284633, 0485840, 03988026, 0983788, 2717256, 1794810 ####[facility] [address] [place] [address] Basophils/Leukocytes Auto (Bld) [Pure # fraction] 0.0 E9/L Normal 0.0-0.2 [facility] Comment on above: Order Comment: Order Added by Discern Expert. Performed By: #### 2 665978, 0899167, 1045859, 92221878, 4279894, 8880920, 1063171 ####[facility] [address] [place] [address] Eosinophils/100 WBC (Bld) 0.7 % Normal 0.0-8.0 [facility] Comment on above: Order Comment: Order Added by Discern Expert. Performed By: #### 2 539649, 6484581, 4401824, 13173095, 8454963, 0346155, 3017782 ####[facility] [address] [place] [address] Eosinophils/Leukocytes Auto (Bld) [Pure # fraction] 0.1 E9/L Normal 0.0-0.5 [facility] Comment on above: Order Comment: Order Added by Discern Expert. Performed By: #### 2 107894, 3453473, 2967595, 50676297, 1256344, 2117270, 6953331 ####[address] [place] [address] Lymphocytes/100 WBC (Bld) 37.5 % Normal 14.0-50.0 [facility] Comment on above: Order Comment: Order Added by Discern Expert. Performed By: #### 2 452246, 7773133, 5985421, 33233940, 4069470, 8881821, 7818550 ####[address] [place] [address] Lymphocytes/Leukocytes Auto (Bld) [Pure # fraction] 2.8 E9/L Normal 1.0-4.0 [facility] Comment on above: Order Comment: Order Added by Discern Expert. Performed By: #### 2 082850, 2927591, 5870228, 37000549, 9377970, 7113102, 7924917 ####[address] [address] Monocytes/100 WBC (Bld) 7.3 % Normal 4.0-14.0 [facility] Comment on above: Order Comment: Order Added by Discern Expert. Performed By: #### 2 601017, 7128454, 3971431, 56972874, 1385910, 3657851, 7993660 ####[facility] [address] [place] [address] Monocytes/Leukocytes Auto (Bld) [Pure # fraction] 0.6 E9/L Normal 0.2-1.0 [facility] Comment on above: Order Comment: Order Added by Cristofer Expert. Performed By: #### 2 372676, 5655750, 4309449, 56207488, 3404212, 5888523, 9645158 ####[address] [place] [address] Neutrophils/100 WBC (Bld) 53.9 % Normal 36.0-75.0 [facility] Comment on above: Order Comment: Order Added by Discern Expert. Performed By: #### 2 056992, 9897831, 9245083, 23473963, 3718767, 0894283, 3802048 ####[facility] [address] [place] [address] Neutrophils/Leukocytes Auto (Bld) [Pure # fraction] 4.1 E9/L Normal 2.0-7.5 [facility] Comment on above: Order Comment: Order Added by Discern Expert. Performed By: #### 2 192844, 9147764, 0562826, 16177705, 1626692, 2388033, 6174273 ####[facility] [address] [place] [address] BMPon 10-26-2022 Creatinine [Mass/Vol] 0.8 mg/dL Normal 0.5-1.3 [facility] Comment on above: Performed By: #### 2 851731, 9551654, 4360553, 74084474, 8846378, 2329789, 6319349 ####[facility] [address] [place] [address] Urea nitrogen [Mass/Vol] 8 mg/dL Normal 5-21 [facility] Comment on above: Performed By: #### 2 580534, 2494712, 6418489, 78383537, 0286015, 2510353, 4844644 ####[facility] [address] [place] [address] Urea nitrogen/Creatinine [Mass ratio] 10 No Units Normal 10-20 [facility] Comment on above: Performed By: #### 2 632363, 3550528, 9350450, 40617478, 3350454, 2364700, 7798033 ####[facility] [address] [place] [address] Anion gap [Moles/Vol] 10 mmol/L Normal 6-16 [facility] Comment on above: Performed By: #### 2 472216, 7766577, 3655352, 61962527, 0516013, 7733022, 2923699 ####[facility] [address] [place] [address] Calcium [Mass/Vol] 8.9 mg/dL Normal 8.9-11.1 [facility] Comment on above: Performed By: #### 2 526489, 4768769, 2029421, 59928844, 9842022, 1117480, 4206817 ####[facility] [address] [place] [address] Chloride [Moles/Vol] 105 mmol/L Normal 101-111 [facility] Comment on above: Performed By: #### 2 419240, 2950102, 4029584, 51792600, 1139480, 0481647, 9969877 ####[facility] [address] [place] [address] CO2 [Moles/Vol] 24 mmol/L Normal 21-31 [facility] Comment on above: Performed By: #### 2 616408, 0720008, 0530081, 56901279, 3548156, 4562721, 4025490 ####[facility] [address] [place] [address] Glucose [Mass/Vol] 93 mg/dL Normal 55-199 [facility] Comment on above: Result Comment: If t his glucose result represents a fasting glucose, interpretation should refer to the following reference range: 55-99 mg/dL Performed By: #### 2 436513, 7410259, 8888800, 24409134, 1227487, 9018514, 3536996 ####[facility] [address] [place] [address] Potassium [Moles/Vol] 3.2 mmol/L Low 3.5-5.3 [facility] Comment on above: Performed By: #### 2 900928, 7598279, 1996686, 50034249, 6361147, 2593132, 2129131 ####[facility] [address] [place] [address] Sodium [Moles/Vol] 136 mmol/L Normal 135-145 [facility] Comment on above: Performed By: #### 2 425121, 8635930, 2144477, 33440999, 8347282, 7801371, 3328650 ####[facility] [address] [place] [address] CBC w/ Auto Diffon 3 Erythrocyte distribution width (RBC) [Ratio] 13.2 % Normal 10.9-14.2 [facility] Comment on above: Performed By: #### 2 678769, 4774413, 3958760, 24616405, 4788038, 3287054, 6337627 ####[facility] [address] [place] [address] Hematocrit (Bld) [Volume fraction] 38.9 % Normal 34.0-46.0 [facility] Comment on above: Performed By: #### 2 905628, 1105299, 7582700, 53860504, 5354535, 0460954, 3626178 ####[facility] [address] [place] [address] Hemoglobin (Bld) [Mass/Vol] 13.0 g/dL Normal 12.0-16.0 [facility] Comment on above: Performed By: #### 2 303802, 1202846, 8805676, 68489752, 2163622, 0304186, 1941368 ####[facility] [address] [place] [address] MCH (RBC) [Entitic mass] 29.2 pg Normal 27.0-34.0 [facility] Comment on above: Performed By: #### 2 572293, 6133721, 0850695, 75377045, 2025847, 7290668, 7478263 ####[facility] [address] [place] [address] MCHC (RBC) [Mass/Vol] 33.4 g/dL Normal 31.4-36.0 [facility] Comment on above: Performed By: #### 2 889481, 4960862, 7188885, 85025178, 9716193, 7140099, 2806244 ####[address] [place] [address] MCV (RBC) [Entitic vol] 87.3 fL Normal 80.0-100.0 [facility] Comment on above: Performed By: #### 2 398580, 9314094, 0726720, 41581442, 7329635, 6070238, 9462781 ####[address] [address] Platelet mean volume (Bld) [Entitic vol] 7.8 fL Normal 6.4-10.8 [facility] Comment on above: Performed By: #### 2 368355, 3909729, 9916518, 53299931, 4783867, 2975573, 6365769 ####[address] [address] Platelets (Bld) [#/Vol] 282.0 E9/L Normal 150.0-500.0 [facility] Comment on above: Performed By: #### 2 235374, 5456050, 1936205, 97587266, 3503994, 2464880, 3188516 ####[address] [address] RBC (Bld) [#/Vol] 4.4 E12/L Normal 4.3-5.9 [facility] Comment on above: Performed By: #### 2 747151, 8924689, 0683173, 98962897, 2593915, 6578733, 2966776 ####[address] [address] WBC corrected for nucl RBC Auto (Bld) [#/Vol] 7.6 E9/L Normal 4.0-11.0 [facility] Comment on above: Performed By: #### 2 103691, 9362522, 3311648, 75045360, 0688672, 3064018, 1334639 ####[facility] [address] [place] [address] CHEMISTRYOrdered By: SYSTEM SYSTEM on 10-26-2022 Albumin [...] 300 Contrast amount in ml's: 100 Normal [facility] Consent for Treatmenton 10-15 Consent for Treatment [id number]:127 Normal [facility] Discharge Instructionson Discharge Instructions [id number]:127 Normal [facility] ED Clinical Summaryon 2022 ED Clinical Summary [place] [address] [id number] ED Clinical Summary Person Information Name: DENISHA OWEN [facility] Age: 42 Years : 1980 Sex: Female Language: Ukrainian PCP: Katerine Palmer MD Marital Status: Visit [...] 10/26/2022 18:36:39 10/26/2022 18:36:39 10/26/2022 18:36:39 ADDRESS: [address] [place] [phone] PHYS DOC NOTES: MEDICAL INFORMATION: Prescriptions Given: New Medications [facility]/pharmacy #6173, [address], [place] [id number], [phone] dicyclomine (dicyclomine 20 mg Tab) 1 Tablets By Mouth 3 times a day for 7 Days. Refills: 0. Medications to Continue Taking That Have Changed [facility]/pharmacy #6173, [address], [place] [id number], [phone] START: ondansetron (Zofran 4 mg Tab) 1 Tablets By Mouth every 6 hours as needed Nausea. Take one tab by mouth every six hours as needed for nausea. Refills: 0. Other Medications START: ondansetron 2 times a day. Medications to Continue with No Changes Other Medications acetaminophen-hydroco done ([place] 5/325 Tab) 1 Tablets By Mouth every 4 hours as needed as needed for pain. acetaminophen-hydroco done ([place] 325 mg-5 mg oral tablet) 1 Tablets By Mouth every 4 hours as needed for pain. Refills: 0. acetaminophen-hydroco done ([place] 325 mg-5 mg oral tablet) 1 Tablets [...] [place] [address], [address], [facility] [address] [place] [phone] Business (1) In 3 days 10/29/2022 With: Address: When: Katerine Palmer [address] [place] [address] Business (1) In 3 days DIAGNOSIS: Abdominal pain Normal [facility] ED Note-Physicianon 10-27-19 ED Note-Physician Basic [...] pain was admitted to the hospital at [place]. There was some uncertainty as to what [...] as hysterectomy. 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 physician and was told that the ovarian [...] day(s), # 21 tab(s), Refills(s) 0, Pharmacy: [facility]/pharmacy #6173, 170, cm, 10/26/22 17:15:00 EDT, Height/Length Dosing, 75, kg, 10/26/22 17:15:00 EDT, Weight Dosing ondansetron, 4 mg = 1 tab(s), Oral, q6hr, PRN Nausea, Take one tab by mouth every six hours as needed for nausea, # 10 tab(s), Refills(s) 0, Pharmacy: [facility]/pharmacy #6173, 170, cm, 10/26/22 17:15:00 EDT, Height/Length [...] Ford In 3 days 10/29/2022 EDT 278 [facility] [address] [phone] Business (1) Additional Instructions: Katerine Palmer In 3 days [address] [place] [address]- Business (1) Additional Instructions: Problem List/Past Medical History Ongoing Biliary dyskinesia Smoker Historical Depression Endometriosis of fallopian tube Procedure/Surgical History laparoscopic cholecystectomy (06/18/2013), Laparosco (more content not included)... Normal [facility] Comment on above: Result Comment: Elec tronically Signed By: Jeovanny Garcia DO\.br\Date and Time Signed: 10/26/22 18:15 EDT ED Patient Education Noteon 10-26-2022 ED Patient Education Note Normal [facility] ED Patient Summaryon 023 ED Patient Summary [facility] [address] [place], [place] [address] Patient Discharge Instructions Person Information Name: DENISHA OWEN Age: 42 Years Arrival Date: 10/26/2022 17:06:43 Discharge Diagnosis: Abdominal pain Primary Care Physician: Katerine Palmer MD Provider Information Primary Provider: Jeovanny Garcia DO Advanced Machine Rigger:None The exam and treatment you received in the Emergency Department were for an urgent problem and are not intended as complete care. It is important that you follow up with a doctor, nurse practitioner, or physician?s culture media laboratory assistant for ongoing care. If your symptoms [...] Instructions: With: Address: When: Leland Sahil[address]i [address] [facility], [address], [facility] [address] [place] [phone] Business (1) In 3 days 10/29/2022 With: Address: When: Katerine Palmer [address] [place] [address] Business (1) In 3 days In the event that this physician does not participate in your insurance network, please consult with your insurance company to find a nearby participating provider. Patient Education Materials: A MESSAGE TO ALL PATIENTS REGARDING OPIOIDS PRESCRIPTION OPIOIDS: WHAT YOU NEED TO KNOW Prescription opioids can be used to help relieve ytmzkakq-wi-oklvfj pain and are often prescribed following a [...] be struggling with addiction, tell your health livestock caretaker and a (more content not included)... Normal [facility] HEMATOLOGYOrdered By: SYSTEM SYSTEM on 10-26-2022 Basophils/100 WBC (Bld) 0.6 % Normal 0.0 - 2.0 % [facility] HemeAutoSS Basophils/Leukocytes Auto (Bld) [Pure # fraction] 0.0 E9/L Normal 0.0 - 0.2 E9/L [facility] HemeAutoSS Eosinophils/100 WBC (Bld) 0.7 % Normal 0.0 - 8.0 % [facility] HemeAutoSS Eosinophils/Leukocytes Auto (Bld) [Pure # fraction] [...] 7.6 E9/L Normal 4.0 - 11.0 E9/L [facility] HemeAutoSS Hep Func Panelon 10-26-2022 Albumin [Mass/Vol] 4.0 g/dL Normal 3.3-5.0 [facility] Comment on above: Performed By: #### 2 417444, 7068666, 1451558, 26845892, 0324546, 6697215, 4911270 ####[facility] [address] [place] [address] Albumin/Globulin (S) [Mass conc ratio] 1.4 Normal 1.1-2.2 [facility] Comment on above: Performed By: #### 2 542315, 8988567, 8766372, 41645643, 2789529, 7268237, 7333784 ####[facility] [address] [place] [address] ALP [Catalytic activity/Vol] 31 Int._Unit/L Normal 21-98 [facility] Comment on above: Performed By: #### 2 869526, 6727818, 2910123, 43495107, 6280390, 4297497, 6976162 ####[facility] [address] [place] [address] ALT No additional P-5'-P [Catalytic activity/Vol] 12 Int._Unit/L Normal 6-46 [facility] Comment on above: Performed By: #### 2 066460, 9154713, 6531762, 19049822, 0486439, 4864233, 6680417 ####[facility] [address] [place] [address] AST [Catalytic activity/Vol] 16 Int._Unit/L Normal 5-43 [facility] Comment on above: Performed By: #### 2 761007, 5215503, 6031148, 36052669, 8399047, 7923053, 7551050 ####[facility] [address] [place] [address] Bilirubin [Mass/Vol] 0.7 mg/dL Normal 0.0-1.1 [facility] Comment on above: Performed By: #### 2 927486, 0903789, 6329805, 53807740, 8991875, 1952259, 5545167 ####[address] [place] [address] Bilirubin.direct [Mass/Vol] 0.1 mg/dL Normal 0.1-0.4 [facility] Comment on above: Performed By: #### 2 160487, 4665264, 9533838, 74662389, 5997625, 0492130, 4281874 ####[facility] [address] [place] [address] Bilirubin.indirect [Mass or moles/Vol] 0.6 mg/dL Normal 0.1-0.9 [facility] Comment on above: Performed By: #### 2 761426, 4509181, 4259973, 56129503, 3412830, 6562331, 0132274 ####[address] [address] Globulin (S) [Mass/Vol] 2.8 g/dL Normal 1.4-4.0 [facility] Comment on above: Performed By: #### 2 501404, 1573187, 5558029, 79350869, 3361590, 2346180, 5423702 ####[address] [place] [address] Protein [Mass/Vol] 6.8 g/dL Normal 6.0-7.8 [facility] Comment on above: Performed By: #### 2 213149, 4189110, 3666474, 20842311, 9538998, 9155538, 6968706 ####[address] [place] [address] Lactic Acidon 10-26-2022 Lactate [Mass/Vol] 0.9 mmol/L Normal 0.5-2.2 [facility] Comment on above: Performed By: #### 2 878702, 8050075, 4564589, 47448663, 0787198, 8474337, 4250719 ####[facility] [place] [address] Lipase Levelon 10-26-2022 Lipase [Catalytic activity/Vol] 24 U/L Normal 13-58 [facility] Comment on above: Performed By: #### 2 781541, 7625574, 0556180, 82196779, 1026442, 8370740, 8854374 ####[facility] [address] [facility] [place] [address] UA With Cult Reflexon 2022 Bacteria LM Ql (Urine sed) TRACE Normal Trace [facility] Comment on above: Performed By: #### 1 5944465 ####[facility] [address] [place] [address] Bilirubin Ql (U) Negative Normal Negative [facility] Comment on above: Performed By: #### 1 9809559 ####[address] [address] Clarity (U) SL CLOUDY Invalid Interpretation Code [facility] Comment on above: Performed By: #### 1 7794021 ####[facility] [address] [facility] [place] [address] Color (U) YELLOW Normal Yellow [facility] Comment on above: Performed By: #### 1 2719098 ####[facility] [address] [facility] [place] [address] Epithelial cells.squamous LM.HPF (Urine sed) [#/Area] 0-2 Normal 0-2 [facility] Comment on above: Performed By: #### 1 0793999 ####[facility] [address] [place] [address] Glucose Test strip (U) [Mass/Vol] Negative Normal Negative [facility] Comment on above: Performed By: #### 1 0648801 ####[facility] [address] [place] [address] Hemoglobin Ql (U) Negative Normal Negative [facility] Comment on above: Performed By: #### 1 0451637 ####[facility] [address] [place] [address] Ketones (U) [Mass/Vol] Negative Normal Negative [facility] Comment on above: Performed By: #### 1 4488501 ####[facility] [address] [place] [address] [place].plasma/[place] .RBC (Bld) [Mass ratio] 0-3 Normal 0-3 [facility] Comment on above: Performed By: #### 1 1528380 ####[facility] [address] [place] [address] Mucus Ql (Urine sed) TRACE Normal [facility] Comment on above: Performed By: #### 1 6322729 ####[address] [address] Nitrite Ql (U) Negative Normal Negative [facility] Comment on above: Performed By: #### 1 0958423 ####[address] [address] pH (U) 6.0 [pH] Invalid Interpretation Code 5.0-9.0 [facility] Comment on above: Performed By: #### 1 9164732 ####[address] [address] Protein (U) [Mass/Vol] Negative Normal Negative [facility] Comment on above: Performed By: #### 1 8707919 ####[address] [address] Specific gravity (U) [Rel density] 1.025 Invalid Interpretation Code 1.005-1.030 [facility] Comment on above: Performed By: #### 1 6520226 ####[facility] [address] [place] [address] Type of Urine collection method Clean Catch Normal [facility] Comment on above: Performed By: #### 1 1655272 ####[address] [address] Urobilinogen Qn (U) 0.2 {Hermann'U}/dL Normal 0.0-1.0 [facility] Comment on above: Performed By: #### 1 9634132 ####[facility] [address] [place] [address] WBC Auto Ql (U) Negative Normal Negative [facility] Comment on above: Performed By: #### 1 0810646 ####[facility] [address] [place] [address] WBC LM.HPF (Urine sed) [#/Area] 0-5 Normal 0-5 [facility] Comment on above: Performed By: #### 1 5341527 ####[facility] [address] [place] [address] URINALYSISOrdered By: Nathalia Myers on 10-26-2022 Bacteria [...] PM) Normal Negative [facility] UA Auto SS [place].plasma/[place] .RBC (Bld) [Mass ratio] 0-3 /HPF Normal [...] [Mass/Vol] Negative (10/26/22 5:34 PM) Normal Negative [facility] UA Auto SS Specific gravity (U) [Rel density] 1.025 *NA* (10/26/22 5:34 PM) Invalid Interpretation Code 1.005 - 1.030 [facility] UA Auto SS UA Spec Desc Clean Catch (10/26/22 5:34 PM) Normal [facility] UA Auto SS Urobilinogen Qn (U) 0.4764844 {Hermann'U}/dL Normal 0.0 - 1.0 EU/dL [facility] UA Auto SS WBC Auto Ql (U) Negative (10/26/22 5:34 PM) Normal Negative [facility] UA Auto SS WBC LM.HPF (Urine sed) [#/Area] 0-5 /HPF Normal 0-5/HPF [facility] UA Auto SS eGFRon 10-26-2022 GFR/1.73 sq M.predicted among non-blacks MDRD (S/P/Bld) [Vol rate/Area] 93 mL/min/1.73 m2 Normal >=59 [facility] Comment on above: Order Comment: Order added by Discern Expert. Result Comment: Business Intelligence Administrator nicole kidney disease could be indicated at eGFR's of less than 60 mL/min/1.73m2. Kidney failure is indicated at less than 15 mL/min/1.73m2. Performed By: #### 2 000193, 2543295, 5442080, 44369123, 1528033, 1362251, 5144360 ####[facility] [address] [place] [address] Consultation Noteon 09-25-19 Consultation Note [id number]#1 .00CD:127 Normal [facility] RAD - CT Reporton 09-24-[address] - CT Report [id number] .[id number]:127 Normal [facility] Coding Summary.on 04-30-2022 Coding Summary. CD:[id number] G h0bWw+PGhlYWQ+SG7DNEO uC19otERpnM6BM1fEWX7H PTMUAOVFGI4UMA4hmKK6Y QolU0MpotFk WpuhnXSgOL60UNq9XXX6t LnzUWemaS7sfZMqO4n2Yn ClWV39rE33SKykRIAsCdQ 3LjZpbjsgbWFy Y8eyZdZumNTkAin+PHRhY mxlIHdpZHRoPScxMDAlJy WubChiMP9qRr2lCZSzELP vbGxhcHNlOiBj e4qqKXFqLCchVR9qbMafD 8JbaUC4KPBun5l7Np47dQ I+OKDeRPX9iHhxWWdxh00 2UbExm7dfXAC4 aBYqODaaBJI7N51ad3X9J HImPMCuMHO9bOJ4uG9okD gluwaxU2VolTBrWtM2QQA 3fCUamH9dcMcr juoboT2cHvj+V71WDT7YB WUMIQ2WMcq3C9YnNvpfeF I+VC61BENwLD00eFIjtWE ia1uavTn9TbPj AVGeCPC8pPzaQQtkp1ZwK GDkI07ljYFvm8G3SMGpvD xdtRAkLpJcfVC7mW6bHDg goqjeq2tqmygc Mjjac2wivg34kX46J15dG CdyJKKkYOM0VOYpCWMheW uwbm8sgG3zWh7+LWqjt0p jv7myqUb1OjGx WGQhkjPwdPdfEBQ7c7OgO f27O5RtkTcnt7JiOee3kq 64kAHbi7Y1eVB1ZMndCOY kzO4xSTwoLhV0 VRAlVdVvrK45oBFfAMakK l7yxNnfcEmfDD4dNSPkbz ipWNZajO9jSCSyjRTqyPt zGV8pBRWosqgv j377CdSzSYX3QCOieHApI 6ZwrP3mZrFiBFVwCWHlU9 AxiKXbMJqbO617FIvaVjS 1ZTDakbLeH7Tt TFJjxIufWhV3p7K5Ot4Vi 3NjrcqoRGW6SImzDJZdPr P8AkYfVzG9R8LsWvm7MEM meLfhUP1kI6Dn WRMufnsjvjmskHO7WAQqJ JFlxA47zBQjFEsbBw4gv1 Q9o748NGGvGJDvnU33Rs8 udDogMTBwdCBU kS2siyenx1hpihklShNnE LLrVQs2XQp4MRLrzSudBq YsVXR2ZqA6AVK2iVHdjZ7 krQtfmzckcZ3d Oyc+X79qwM7bGON0ZDI9i dznZCBhciZuGU52YH65H9 RyPjwvdGFibGU+PGRpdiB emQzzEQ6rBrFj e7wwh8YvPSuiQ5GgZQCzM ZyjMxw8UFBpRND1oVI4lC 9kKWGxXTcye6N9rEP0O8M hhtUilu0cq1wd AUEnIMpgR47bbREsv3L9Q YItjWB2HCZtuDbuTtXyfW 93Oyc+BQQuiEzwv2LaWwd ez2fel8qdsZq5 IvTlATBhqqEnjBsqEKL1i 8KtTj14R99fLLzpLKTfWK HxMQVzPPIhuLnvoq4ryE0 wIi8+PGNvbCB3 iGH2qA3hDUVrAmC0RZgwW 730KkUokGFjMywlr7gbe6 woyPx6KgVqUXIjrwZsfKe lWVZ2s4VqBq16 S31sFMtmHIEcAXHdFARiH XKryOxibs9gvW2jMb5+PC 2nl6wlgu95tO47yGA+PHR eKSS1tGvfXTfm RWVmhL3pWFdbRrN2XZFsE zKfeY98kMKhHVtkOr0wzQ rwaLctUI5hCUYnuokfo67 8NlByo6mfKDMq wCYnUQqbWQQ8F47vt1J1Z RYxDSQvTTT9sZO5bX8hjC lnbjogbGVmdDsgdmVydGl gJDmcRHhxT554 IHRvcDsnPlBhdGllbnQgT kTuKNg1Y7PmBgh7USZouB igHC1rtGYxDAzbIi4lrGk obBboYC2jNMEs kgqke131AsQme2vuLCVnc SKiBSneBSL2U89tz3X2VN BlSFRzVBT5dMZ4mT9ftJh nbjogbGVmdDsg msZriHfxRCyeGEfsV840O HRvcDsnPkJpcnRoIERhdG I8FI72MO47wCAbm8X5uVQ 8F0ChHOXweisx kfjcwPZ2OAUlUHSnlS67E d4cwJakSr6iLQAsLRP0FM GtiZRgU6CvcD4sPrRfYVQ hWBIwX7RljWCm RJgxO720NAwzCgB0IHBcd bTfK7NaFFOytAtaLeE6r5 S0Cd0AS4S2JZ14XY98fBW oa5V8iGC2L0Gd GFRmlhjnvjaynFA7FDRyP RUchW48Lz5ffMjqBj0hBW TpIXK2IXSihSGzC7KtcH8 yOiAjMDAwMDAw N5DfzXQrOMktO135ZGbtJ iD8NAFimbUiG9CbKCNemR abSrF1o0N2Lk6NGKe5VN8 5VG85eUMut8M4 mEC1Q9QqIMVwduiamaboh CU5XYJhXUXozA04Su4smU khFo8rODMgVXU7QDNzlYL dW1AhmX9vFoOj MOGwXQSpQ1PuqGHcMCmzZ 908BNsyGkY7ULRvwzMoI1 SiMTSvjAtnPdO3d2X5Ul7 AXBMnNR83YWC4 kFA8MG02NB68K9SlCxdce GFibGU+PHRhYmxlIHdpZH RoPScxMDAlJyBzdHlsZT0 uKc5hKEIrEKKd jQyxuDVlKyGnz9yzGRQkQ FckAU9grOyyB2NedWF1SC Eav4s6Co42B48yG3IruKA +GGKahYB6iKN6 bF3gUiUpPhN7VUdvZ169I fFsyFBpCmmyg6omi4fhvU h9HtU3HLHsarMlxAzdHHH 5r4DgDm62Q76i IHdpZHRoPSIxNSUiIHZhb Xncka4zgN9mEp3+PGNvbC Q9wUF9nI5pVnFsGvJ2QWe dO502HbXhzMRk Mzpcw4swh2poiMc2UbVyF IIgksLlxFjsXNJ8v0KvNa 07Z7GrhAgpa8JuZbw6dz0 8gVTdh2P3fLQ9 W7BpMQKumhedhPRprZrxI Q6iSBKwuuybOJOpqJ0qOI KaD5q0SlOlKdP5LBwwW5P llyE7NQEjqCSb WDviILD4C40sk6T7FWDbR QMfCPL5uVD9bQ5mjJbrzi ogbGVmdDsgdmVydGljYWw qBGtdC005DECl qIffHUDfyQ7kCIDliEJtf UxsXD2mTIXoshaxGtEPDP 0MBkCdFXDUY3QDBgRYCSL NUA59BI35rWOh x9L2fPI7Z6DkJUTordltr arwmNE6JAFsOCFnpF28hF ZnGYqjYd3oq0R9q056DQZ wMXQxcG77Wa4u rGfmNWOrbYWViK1bdkfht 5fucvbzPlUpCQPuNIb0UA g2JTGezArkExOuRGY1AeV 7FAL8yDZkrW9m pYwexaquvQ1nWdz+MTIvM WgiJUy5FTvnzQD+PHRkIH X1ePojLNfwWUYkoJ4aCZB yI7x2ZrTfFwO4 EJuuG6QqULSkbhmzUp65d J8vHfZxRgT3DGzwY6Ihux T0SZVoxGOoQYujBZB2E46 qt3W1PXKnILOz BLB0jZT7rH1dwQjiynjfx GVmdDsgdmVydGljYWwtYW piL996WHSkgVviEvR7PXb kYSApOW86MM36 iFRdi2Q6vMV3B7CcDFBig lvxfznocKN2NXNgRPTglZ 23yHVcDCgqLb8dg3Y9j35 6CAQxRDZkbB67 Jq5oeKhhNTTcuOEUpZ3dp rsmq9ftjsdpSmPzUHScFD h8WOd3MZHjeUahRiXeDYA 1XtA5OAQ8pTFg cR5ikUphsogkmT0aSiw+R lDwVDeuDO38SU46cDGeh2 P2bXF0B8PjKWAwwinebqf inTA2TJKpBUTe tP74lYYkWRgaJk9dq0X7k 833EGGqTXHsuW24Pn4yjU mpMWHdpSVErP3qkuhlg0x vcjogIzAwMDAw YJe8THx8XXVeyJmnOwHrQ OQ8RjX2AAW1bCIlkN1hjA qipbtagM6xYlt+XK7zrsn kzqO7RE54CI00 D1QjPsiidQHhjFE+PHRhY mxlIHdpZHRoPScxMDAlJy ZlqXyrJU2oEq3dSOYmNLT vbGxhcHNlOiBj m0ohPRQoPQxqOX1jkYfiD 7AirAM6YNBmq3j7Am32T5 9lO9AlkOJ+WCZnvVD6ePM 1dW1zJxVrDeA5 PVkvY105GkIriXCuHcxhl 4nij2tjzPu5GqAsAOGpmr GqfZurVXC3o5PaUn79L43 sIHdpZHRoPSIy UHZsAESglAzwwz3gjY3cP i8+LENxuKA5nKT7yA8zIm XoNcG0SKzeP550FzSqcWN uLdwlP06eR2Cq dXA+PUDhNxo0GOVwxIngK I4enHDdWVsaTv5eBGQ6Zm PvWfYyHPvcS5WcCRTbcjd cjjgwnAI3XNNd NSPyzY20Xo1owTojBn6gQ TQrHCN4AXKrySHkQ5IzqT 3hSwYgBANyVCTxS7KmpZE mDOqqS067XAgz MpA7VYJjixZzS9HfKRBhc UnbVyY2b2W0Pe4SgJvxjR TwUB0cNsVfNQv4T7TlAjt 6XTXndAphOT3y hYBfBPreAy8yaGggtSltZ H0uACRoyyvcj111WcSfi2 kaHBZktCGuBCxeAUB6O33 ku7T3XJCsVLSq YKS6kAS6iO3onYxcnjsza GVmdDsgdmVydGljYWwtYW soZ615FFHxwNzgMzEMEip 1G5YxZzo9FNNu oEgrYV3anWVyLKnzUf4jg IncvKrzUU4bARSzgrjtx5 96RiKvc9mdQKXmiEGoGCh aDAW7A99jf0W8 ZDYmMEZfAXE2nAH5qN8xo GlnbjogbGVmdDsgdmVydG zpDQqxBQwmK095VYPomPs xVy5CJxj3F1Lv Vit1LVKozErvYM9cwNQoD UnxCr3wsYyynAeyXF6dBG Pghjiox468QsRii8xtDAP wcHQgVGltZXM7 U61yf6L6CNGaUBXgLEM3z JC1aT2abCbbpsokyOJubV qdpgNbuOddPXetFQtjE74 6IHRvcDsnPlBh eWVyOjwvdGQ+WA30ii67O 4FeCxeoOae4LKWxEDZ6cP F1tT3gRUUfWNrso9X0oBW 5O4ZapcJsrw6x b2xs (more content not included)... Normal [facility] Discharge Instructionson Discharge Instructions [id number]# 1.00CD:127 Normal [facility] Auto Diffon 04-26-2022 Basophils/100 WBC (Bld) 0.9 % Normal 0.0-2.0 [facility] Comment on above: Order Comment: Order Added by Discern Expert. Performed By: #### 1 2418013, 3500051, 6732190, 24128717, 5321593, 28508096, 4185865, 9550644 ####[facility] [address] [place] [address] Basophils/Leukocytes Auto (Bld) [Pure # fraction] 0.1 E9/L Normal 0.0-0.2 [facility] Comment on above: Order Comment: Order Added by Cristofer Expert. Performed By: #### 1 3960116, 4843660, 0211692, 33719244, 1838987, 19335142, 9151653, 6893576 ####[facility] [address] [place] [address] Eosinophils/100 WBC (Bld) 1.2 % Normal 0.0-8.0 [facility] Comment on above: Order Comment: Order Added by Cristofer Expert. Performed By: #### 1 7574674, 3771655, 1932548, 19968383, 2719776, 71801963, 2726563, 3865396 ####[facility] [address] [place] [address] Eosinophils/Leukocytes Auto (Bld) [Pure # fraction] 0.1 E9/L Normal 0.0-0.5 [facility] Comment on above: Order Comment: Order Added by Cristofer Expert. Performed By: #### 1 5435774, 6621084, 4023494, 62277999, 1910896, 62648795, 2857158, 2402978 ####[facility] [address] [place] [address] Lymphocytes/100 WBC (Bld) 37.0 % Normal 14.0-50.0 [facility] Comment on above: Order Comment: Order Added by Cristofer Expert. Performed By: #### 1 3879475, 7891195, 7463210, 63972547, 2492764, 39094345, 1092132, 2986667 ####[address] [place] [address] Lymphocytes/Leukocytes Auto (Bld) [Pure # fraction] 3.8 E9/L Normal 1.0-4.0 [facility] Comment on above: Order Comment: Order Added by Discern Expert. Performed By: #### 1 9575607, 3324198, 5848439, 17180075, 6660027, 10924886, 5988754, 9985094 ####[address] [address] Monocytes/100 WBC (Bld) 7.7 % Normal 4.0-14.0 [facility] Comment on above: Order Comment: Order Added by Cristofer Expert. Performed By: #### 1 5328262, 0092589, 7572249, 98591287, 6947563, 87302958, 3552773, 1910644 ####[address] [address] Monocytes/Leukocytes Auto (Bld) [Pure # fraction] 0.8 E9/L Normal 0.2-1.0 [facility] Comment on above: Order Comment: Order Added by Cristofer Expert. Performed By: #### 1 4847758, 4800234, 2138209, 87336213, 0593186, 30134602, 0915715, 7372920 ####[address] [place] [address] Neutrophils/100 WBC (Bld) 53.2 % Normal 36.0-75.0 [facility] Comment on above: Order Comment: Order Added by Cristofer Expert. Performed By: #### 1 8131356, 6132016, 7042199, 08602752, 3323738, 51426366, 9642688, 7385061 ####[address] [place] [address] Neutrophils/Leukocytes Auto (Bld) [Pure # fraction] 5.4 E9/L Normal 2.0-7.5 [facility] Comment on above: Order Comment: Order Added by Discern Expert. Performed By: #### 1 2680154, 9436233, 1785037, 33077381, 4598637, 15814481, 7724041, 0808406 ####[facility] [address] [place] [address] BMPon 04-26-2022 Creatinine [Mass/Vol] 0.7 mg/dL Normal 0.5-1.3 [facility] Comment on above: Performed By: #### 1 7137378, 0051995, 6713411, 91513837, 8798237, 01679212, 1270991, 5117623 ####[facility] [address] [place] [address] Urea nitrogen [Mass/Vol] 11 mg/dL Normal 5-21 [facility] Comment on above: Performed By: #### 1 6775009, 1290972, 6360458, 18608823, 3185011, 16438993, 5202427, 5065912 ####[facility] [address] [place] [address] Urea nitrogen/Creatinine [Mass ratio] 16 No Units Normal 10-20 [facility] Comment on above: Performed By: #### 1 9317325, 8102557, 1205510, 97783255, 5357402, 22498423, 2477979, 8107616 ####[facility] [address] [place] [address] Anion gap [Moles/Vol] 12 mmol/L Normal 6-16 [facility] Comment on above: Performed By: #### 1 4742127, 7860864, 9755084, 82895273, 9053159, 72652830, 4438683, 6259739 ####[facility] [address] [place] [address] Calcium [Mass/Vol] 9.2 mg/dL Normal 8.9-11.1 [facility] Comment on above: Performed By: #### 1 9533581, 4285143, 9576952, 37685160, 4890410, 75126330, 3122488, 3929426 ####[facility] [address] [place] [address] Chloride [Moles/Vol] 102 mmol/L Normal 101-111 [facility] Comment on above: Performed By: #### 1 7262841, 0480055, 1228567, 93668872, 0660147, 33716822, 4565197, 0503884 ####[facility] [address] [place] [address] CO2 [Moles/Vol] 26 mmol/L Normal 21-31 [facility] Comment on above: Performed By: #### 1 7992624, 0135133, 0917360, 13380608, 1058708, 52476447, 8489523, 8328683 ####[facility] [address] [place] [address] Glucose [Mass/Vol] 87 mg/dL Normal 55-199 [facility] Comment on above: Result Comment: If t his glucose result represents a fasting glucose, interpretation should refer to the following reference range: 55-99 mg/dL Performed By: #### 1 8265922, 5718366, 1974036, 37977855, 6650244, 29612920, 4565582, 4682667 ####[facility] [address] [place] [address] Potassium [Moles/Vol] 4.4 mmol/L Normal 3.5-5.3 [facility] Comment on above: Performed By: #### 1 9830597, 9950427, 2460442, 21841415, 0843917, 37774198, 9193797, 7176724 ####[facility] [address] [place] [address] Sodium [Moles/Vol] 136 mmol/L Normal 135-145 [facility] Comment on above: Performed By: #### 1 9684973, 2736649, 8035739, 04793073, 0516548, 07380690, 9553612, 4569519 ####[facility] [address] [place] [address] CBC w/ Auto Diffon 3 Erythrocyte distribution width (RBC) [Ratio] 13.5 % Normal 10.9-14.2 [facility] Comment on above: Performed By: #### 1 6925167, 5530801, 5249793, 70665152, 0845554, 34381957, 0370394, 9708380 ####[address] [place] [address] Hematocrit (Bld) [Volume fraction] 40.7 % Normal 34.0-46.0 [facility] Comment on above: Performed By: #### 1 9607049, 1557408, 4743618, 92087164, 0818980, 62784993, 2416189, 3322500 ####[address] [address] Hemoglobin (Bld) [Mass/Vol] 13.5 g/dL Normal 12.0-16.0 [facility] Comment on above: Performed By: #### 1 8838490, 4004057, 8538405, 06188250, 5448472, 73563442, 5706270, 1644486 ####[address] [place] [address] MCH (RBC) [Entitic mass] 29.7 pg Normal 27.0-34.0 [facility] Comment on above: Performed By: #### 1 8831356, 7358757, 6739950, 33511006, 9242450, 88466013, 2499487, 6778553 ####[address] [place] [address] MCHC (RBC) [Mass/Vol] 33.3 g/dL Normal 31.4-36.0 [facility] Comment on above: Performed By: #### 1 7509066, 4352457, 8634869, 44200682, 5450647, 29481327, 4967432, 0205800 ####[address] [place] [address] MCV (RBC) [Entitic vol] 89.4 fL Normal 80.0-100.0 [facility] Comment on above: Performed By: #### 1 9326306, 7075001, 8199338, 57096232, 2939521, 10231596, 0388054, 7071374 ####[address] [address] Platelet mean volume (Bld) [Entitic vol] 8.5 fL Normal 6.4-10.8 [facility] Comment on above: Performed By: #### 1 1391665, 4406383, 6443031, 77738640, 6163702, 93966741, 4510443, 5030320 ####[address] Platelets (Bld) [#/Vol] 287.0 E9/L Normal 150.0-500.0 [facility] Comment on above: Performed By: #### 1 8652028, 7793329, 8030526, 16001698, 2675134, 14377874, 2240704, 6627958 ####[address] [address] RBC (Bld) [#/Vol] 4.6 E12/L Normal 4.3-5.9 [facility] Comment on above: Performed By: #### 1 9204042, 9913957, 8651033, 35159374, 7112304, 34167513, 4749033, 9199677 ####[address] [address] WBC corrected for nucl RBC Auto (Bld) [#/Vol] 10.2 E9/L Normal 4.0-11.0 [facility] Comment on above: Performed By: #### 1 7713658, 1783983, 3813012, 59335039, 3809446, 02139353, 7692909, 4750274 ####[facility] [address] [place] [address] CHEMISTRYOrdered By: SYSTEM SYSTEM on 04-26-2022 Albumin [...] Treatmenton 04-17 Consent for Treatment [id number] .00CD:127 Normal [facility] ED Clinical Summaryon 2022 ED Clinical Summary [address] [address] ED Clinical Summary Person Information Name: DENISHA OWEN [facility] Age: 42 Years : 1980 Sex: Female Language: Ukrainian PCP: Estela YAN, Katerine David Marital Status: Phone: [phone] MRN: [id number] Visit Id: Visit Reason: Palpitations; [...] 04/26/2022 18:33:59 04/26/2022 18:33:59 04/26/2022 18:33:59 ADDRESS: [address] [place] [id number] [facility] DOC NOTES: MEDICAL INFORMATION: Prescriptions Given: Medications to Continue with No Changes Other Medications acetaminophen-hydroco done ([place] 5/325 Tab) 1 Tablets By Mouth every 4 hours as needed as needed for pain. acetaminophen-hydroco done ([place] 325 mg-5 mg oral tablet) 1 Tablets By Mouth every 4 hours as needed for pain. Refills: 0. acetaminophen-hydroco done ([place] 325 mg-5 mg oral tablet) 1 Tablets [...] When: Katerine Palmer [address] [place] [address] [place] ([place] In 3 days DIAGNOSIS: Chest pain Normal [facility] ED Note-Physicianon 04-26-19 ED Note-Physician Basic [...] Katerine Palmer In 3 days [address] [place] [address]- Business (1) Additional Instructions: Problem List/Past Medical History Ongoing Biliary dyskinesia Smoker Historical Depression Endometriosis of fallopian tube Procedure/Surgical History laparoscopic cholecystectomy (06/18/2013), Laparoscopy, le (more content not included)... Normal [facility] Comment on above: Result Comment: Elec tronically Signed By: Jeovanny Garcia DO\.víctor\Date and Time Signed: 04/26/22 18:23 EST ED Patient Education Noteon 04-26-2022 ED Patient Education Note Normal [facility] ED Patient Summaryon 023 ED Patient Summary [address] [address] Patient Discharge Instructions Person Information Name: DENISHA OWEN Age: 42 Years Arrival Date: 04/26/2022 16:55:38 Discharge Diagnosis: Chest pain Primary Care Physician: Estela YAN, Katerine David Provider Information Primary Provider: Jeovanny Gracia DO Advanced Machine Rigger:None The exam and treatment you received in the Emergency Department were for an urgent problem and are not intended as complete care. It is important that you follow up with a doctor, nurse practitioner, or physician?s culture media laboratory assistant for ongoing care. If your symptoms [...] Address: When: Katerine Palmer [address] [place], [place] [id number] Business (1) In 3 days In the event that this physician does not participate in your insurance network, please consult with your insurance company to find a nearby participating provider. Patient Education Materials: A MESSAGE TO ALL PATIENTS REGARDING OPIOIDS PRESCRIPTION OPIOIDS: WHAT YOU NEED TO KNOW Prescription opioids can be used to help relieve ydcvvraf-ql-mcnuok pain and are often prescribed following a [...] be struggling with addiction, tell your health livestock caretaker and ask for guidance or call [facility] National Helpline at 2-280-907-IELQ. k Source: [place] Department of Health and Human Services/Center for Disease Co (more content not included)... Normal [facility] HEMATOLOGYOrdered By: SYSTEM SYSTEM on 04-26-2022 Basophils/100 WBC (Bld) 0.9 % Normal 0.0 - 2.0 % [facility] HemeAutoSS Basophils/Leukocytes Auto (Bld) [Pure # fraction] [...] 287.0 E9/L Normal 150.0 - 500.0 E9/L [facility] HemeAutoSS RBC (Bld) [#/Vol] 4.6 E12/L Normal 4.3 - 5.9 E12/L [facility] HemeAutoSS WBC corrected for nucl RBC Auto (Bld) [#/Vol] 10.2 E9/L Normal 4.0 - 11.0 E9/L [facility] HemeAutoSS Hep Func Panelon 04-26-2022 Bilirubin.indirect [Mass or moles/Vol] UTC Abnormal 0.1-0.9 [facility] Comment on above: Result Comment: Resu lt verified by Discern Rule. Performed result [facility] (Unable to Calculate) was sent as an Alpha code due the inability to calculate a valid numeric value. Performed By: #### 1 3944676, 7530568, 8065773, 11402525, 5933012, 19036224, 8692455, 2468132 ####[facility] [address] [place] [address] Albumin [Mass/Vol] 4.0 g/dL Normal 3.3-5.0 [facility] Comment on above: Performed By: #### 1 5197352, 8197858, 4714350, 96791163, 2949533, 68171792, 1884008, 6723075 ####[facility] [address] [place] [address] Albumin/Globulin (S) [Mass conc ratio] 1.3 Normal 1.1-2.2 [facility] Comment on above: Performed By: #### 1 9839867, 0123053, 5763477, 06524981, 8211998, 75911811, 3563706, 2997981 ####[facility] [address] [place] [address] ALP [Catalytic activity/Vol] 39 Int._Unit/L Normal 21-98 [facility] Comment on above: Performed By: #### 1 4710283, 6487080, 8141519, 50766784, 9985894, 82326788, 3808204, 8133970 ####[facility] [address] [place] [address] ALT No additional P-5'-P [Catalytic activity/Vol] 16 Int._Unit/L Normal 6-46 [facility] Comment on above: Performed By: #### 1 6100043, 7389471, 8086339, 33255205, 9261152, 03788732, 2444252, 6408519 ####[facility] [address] [place] [address] AST [Catalytic activity/Vol] 15 Int._Unit/L Normal 5-43 [facility] Comment on above: Performed By: #### 1 8864494, 7506577, 1674479, 27924202, 3799730, 83903909, 3176802, 5449938 ####[address] [place] [address] Bilirubin [Mass/Vol] 0.4 mg/dL Normal 0.0-1.1 [facility] Comment on above: Performed By: #### 1 1921664, 4242893, 5499789, 37285399, 7086950, 84922477, 7790049, 6098738 ####[facility] [address] [place] [address] Bilirubin.direct [Mass/Vol] mg/dL Normal 0.1-0.4 [facility] Comment on above: Performed By: #### 1 6135416, 1889074, 0837389, 87748296, 7062424, 91257483, 3689106, 1164122 ####[facility] [address] [place] [address] Globulin (S) [Mass/Vol] 3.1 g/dL Normal 1.4-4.0 [facility] Comment on above: Performed By: #### 1 6271705, 0041977, 3172031, 44520379, 6079169, 03709733, 0618056, 5958844 ####[address] [place] [address] Protein [Mass/Vol] 7.1 g/dL Normal 6.0-7.8 [facility] Comment on above: Performed By: #### 1 1847819, 9571949, 5473754, 43336472, 9813853, 03878153, 9548173, 4415877 ####[facility] [address] [place] [address] Lipase Levelon 04-26-2022 Lipase [Catalytic activity/Vol] 31 U/L Normal 13-58 [facility] Comment on above: Performed By: #### 1 5976980, 6794315, 6174199, 07968569, 6315670, 47867234, 9527185, 8810593 ####[facility] [address] [place] [address] PT & PTTon 04-26-2022 aPTT Coag (PPP) [Time] 34.6 second(s) Normal 25.1-36.5 [facility] Comment on above: Result Comment: Para [...] the same coagulation reagent and instrumentation as [facility] [place]. Currently there are no coagulation studies available worldwide for children to 14 days, and no normal ranges. Heparin therapeutic range (represented by Anti-Factor Xa activity of 0.2 - 0.4 U/mL) corresponds to PTT of 56.6 - 109.0 sec. Performed By: #### 1 [id number], 8340920, 8015547, 35880601, 4965903, 78369080, 5725764, 4116863 ####[facility] [address] [place] [address] INR Coag (PPP) [Relative time] 1.0 {INR} Invalid Interpretation Code [facility] Comment on above: Result Comment: INR results are specifically intended to assess patients stabilized on long-term Anticoagulation therapy suggested INR?s ?Less Intensive Anticoagulation? 2.0 ? 3.0 Conventional Range 3.0 ? 4.5 Performed By: #### 1 [id number], 2531937, 4615908, 87332210, 9556603, 68418632, 6822433, 5559490 ####[facility] [address] [place] [address] PT Coag (PPP) [Time] 10.9 second(s) Normal 9.4-12.5 [facility] Comment on above: Result Comment: 15 [...] the same coagulation reagent and instrumentation as [facility] [place]. Currently there are no coagulation studies available worldwide for children to 14 days, and no normal ranges. Performed By: #### 1 [id number], 0102889, 1779457, 48382803, 9997090, 58118052, 4552054, 3604740 ####[facility] [address] [place] [address] Troponin 0 Hr.on 04-26-2022 Troponin I.cardiac [Mass/Vol] 2.90 pg/mL Low 10.10-27.10 [facility] Comment on above: Result Comment: The 95% CI (Confidence Interval) PPV (Positive Predictive Value) for myocardial infarction in females is 38 pg/mL, in males 51 pg/mL. The results should be used in conjunction with clinical conditions of myocardial infarction. (Access High Sensitivity Troponin I Instructions For Use, Sabine Hellier, October 2017) Performed By: #### 1 [id number], 0395549, 7548792, 47912123, 2283513, 88480038, 4353126, 1496964 ####[facility] [address] [place] [address] XR Chest Single Viewon 04-26 XR Chest [...] Transcribed by: NABIL Technologist: RUTH ANN Normal [facility] eGFRon 04-26-2022 GFR/1.73 sq M.predicted among blacks MDRD (S/P/Bld) [Vol rate/Area] mL/min/{1.73_m2} Normal >=59 [facility] Comment on above: Order Comment: Order added by Discern Expert. Result Comment: eGFR is race adjusted. AA=. Performed By: #### 1 [id number], 1659423, 8890260, 72266765, 6153199, 89379505, 6505827, 6360815 ####[facility] [address] [place] [address] GFR/1.73 sq M.predicted among non-blacks MDRD (S/P/Bld) [Vol rate/Area] mL/min/{1.73_m2} Normal >=59 [facility] Comment on above: Order Comment: Order added by Discern Expert. Result Comment: Business Intelligence Administrator nicole kidney disease could be indicated at eGFR's of less than 60 mL/min/1.73m2. Kidney failure is indicated at less than 15 mL/min/1.73m2. Performed By: #### 1 [id number], 3281241, 7449749, 62553060, 7745463, 93198793, 4187403, 6783259 ####[address] [place] [address] Coding Summary.on 02-05-2022 Coding Summary. CD:[id number] G h0bWw+PGhlYWQ+PW2VPYW oJ14lcPQelE8GO4sGPN8N ZEXODWLXAI1ZAB1dkNS7R GkaK1IkitRx YclviOQmJA84SPr1XHW0s KjjASdiwW8mqFTsU3x7Sl UhKU39cE91YOqxXJKhYmH 3LjZpbjsgbWFy L0vdLhKehVOwGtf+PHRhY mxlIHdpZHRoPScxMDAlJy AheRvkAV9mKg1bZROwYDD vbGxhcHNlOiBj j4dkNQTjCSpmSR1hvTiiE 2EqzCG9ZGAvi4o8Um16jM I+ZWXrSZJ8zKgpRKths82 9RpVox6lzAGC6 oADmVTaaKTJ4Q78xd7P6P CCnWIRbDUI0vRC8qZ4geP lxoqcrK4FnbMLbQjO4UAR 5iKIanD0jgUse yzvvrA9fJrj+J74OKU4SJ NWLCG4IWfr7H6ZoMhziqU I+VW17BZRwVC72vOEtpTW xe6pfiTo9EtWr QCUkCXY5wGimWNocn0NiM WWwZ03spDReh1P5CALgbG gtfHIqGeMipLK4qN1xSPm pesbrc6yatzeh Yliil4sbmq22bF68X76gW YfgFUHrMKM6IKMdMNDqxZ wvcj5uzE8zVu1+TTdrn5b dj5gfeNl9LwDb SWUoizAdiOapUKB2u1XyA e14C5LvxQeks8OtUjq1ic 17iHRrt2A6lIB8OSlxDFC klO8pEHnuPuB6 NPThOwXtrO40jEZdXNokB i4nkTufhQzuRH6bQWMzpq yoHKJrcE2wULXlmGCgkZz jBS3rOSOgnfvr l015BpGrNIB4HIOijSGaZ 2OcdC3eLwQcBDJwJWCoF5 UtyKReROisS253PBdcHcH 4ZANvbtGkB5Tr TPPlrIdlWrM9l1S1Nh1Iv 4BcwnsaJQF6ANglCIInZh HmWoWrYhD5P2PiSdx6GGY bwSuwML4vA9Jq ESDfmssqylqziCK5CLKsK FZhyF89kRFwOTxnCs4ci3 [id number] udDogMTBwdCBU qG9cjjwxu0yxixekMqPiW SDvKBu8IQn5DEVwnCogFn PpHGB3HsV4JHN2mFEsxD2 jgFawqklivI2i Oyc+D18ccU5hTAX4YRA9h jvlFQCedxXoWU10HH64O1 RyPjwvdGFibGU+PGRpdiB vvZktZV9mHnRj v0djx1IfTJqeQ5PqFESiJ VicUik0DWKaVCS1pEW0jZ 5xDTJgGQfhb0P0dIF5W9C dlfJncx9qz7nb ZKQxSThtN57lsHCey0C2Y TAtoQW4TEAstIopCnVzpW 93Oyc+OAEadUwtt5QmPww bj0kkq9ruhTl4 EoZrHVPmmiMnqMscTLU6q 2OyGs03R82oCWwaFHViER OxOSFyCRHkiApvan3flV8 wIi8+PGNvbCB3 vGK7hZ9pJGNvOpM2IFjqM 814CmBhsTYjAodao2fnv1 qvbDn0OuQbMROrzgGgoUj wDEX4z9UcQv97 S92yLCgoXVOgEYVsBAZnV UFgjTfwqo0vdC5gYj2+PC 5gi3dhsf35iL80bKL+PHR tELL2jRwtDZey UUBykM0dMFvcIhB9LVCzX aPibS05cCUuBZqkHm5irF oqjBmlFB2pURGhvzvtg50 1LlChm0juDJDi fPPvAVbfUPN3P59su8D0U KKiATXhNUZ0cRY0aS3aqS lnbjogbGVmdDsgdmVydGl uITrqESgiR307 IHRvcDsnPlBhdGllbnQgT eHgMXt1V4WtZgq4OHOepA naKT0qcLRmNKkzLm5faBr cxLsbZF4tLSMp uzzru027HyPlp8wuCYBhb NNrAUkxSYC3N88jr0U6VA UoZAZoPWS9jFE8bZ3sySl nbjogbGVmdDsg ipEhiOefQXqySHgiG291T HRvcDsnPkJpcnRoIERhdG Z4VC05IU40dFEvs3I4uIQ 0Z1QwREJdielu oakumMI9ZVOpDHRegT75P a3ihUmePa7jFDFsTCA6PR XefKDdN4BqjA8pZrYdZTQ vWFBrB8CefMCs IAypH490XVgqDxO3SGJpk sPrF1JyJAMylIkeCeC1y9 V0Ku5KW6Z3TM53GD07eNT vb3Z3rYU1P1Ww SWHmufvhjmkyaLL5BBRzG MGeyG82Kc6vxRgfWa9zCK KkYSD4KCSxrCQuY2KwjJ7 yOiAjMDAwMDAw E5NvlTXtGBkwW339UNxgA zF9XYYxwjSuP0ReFNAmsK enNiO8l6Y0Th8YVBj1BV0 7OZ47fNQsd3F2 zFO7T1YmONUoaczhtdgfi UL1USNrVDHhgX34Cl7reJ shQy5wUJWiRHO6YCKxwBX mQ3NlzQ9yJiAd IOQaLHJzN4DciMNaNIseP 569WVfkBwX2QWHtsbYpC7 YjRGFudPbnKkE0z4T8Ue8 NPOBiIV38ZSB2 yIP2GX99QC91A4IsGrwyy GFibGU+PHRhYmxlIHdpZH RoPScxMDAlJyBzdHlsZT0 kWu7oUIZhFLWb lKmiiDQgLzYth2ajJWZvQ SuqEK4wnGfcN7ChfRE7XQ Raf8n5Fi89Q51pU6ImqCP +WTQgxRE0mWV8 sC8pUgUiCaG8DStrX543A nYilNPzZprfp9boq6gydZ q8DlM7VTBwybFtoWggROQ 2b4WsCu64H44v IHdpZHRoPSIxNSUiIHZhb Oxigb3imC9vAg3+PGNvbC X8vTR2kE2cZyMmEtE3NGu hT744VyJgnKIk Eyovo6bss6dyiQl7TdIzC MRyijPcdIdyJWU1e7HgIo 55Q0VcaEuyc3PoYft7db7 6eQSro5M3lBI8 S0AbGTMigdrdgQQqsHswU Y9dOJBqsshxKIHobA4dES KfY1k1BqOaFxJ0VJxzE8C mxhM8RQVthLQp SGdnFZO0Y05gm2P4IRGaY TDfKXI5yTN5fQ7pcMpkbs ogbGVmdDsgdmVydGljYWw nUMxjM773BBGs bMoqDTDxlU2lYPOjaSQzj YrgCG6dLITbsfjyKfSTFZ 7QEvBdQVNEZ1HRWcIDYWC FOB49DB12sJHn s1M0fSM2W2EnTMOfcznhe ecbdBR3OXGeWBAqgI38nU GpSTjwJl3sd4P4u874BSO hZCUtaU53Kk8x nLmuFFSrdSCMkJ8vnuqmq 9syiqvdIpUwZPRkCJw3LS c9FVTijAkdBqWtHAE5PkY 0ZUZ2iXKpkL2z zFnezoeqvF0tUpk+MTIvM YgyQJv2BIoeyKK+PHRkIH G9tXgtDAvpCGCciL7lRNZ sN0v3IvUbArF3 RWwyL8XnQMLchupuCb61x H6oDtDzIsF1RCnzB8Mpqc C2WFLsfVYzTKgcRIP7P54 la6H5FZCfKTEd BAZ2mUZ9yT0hrJvkppixw GVmdDsgdmVydGljYWwtYW nxK408EZYfwHyrMpXyYDm tUBAgZH40RH79 yGOua2R9lVU7Q1KpXXUmb ilsmfwejMY0AIEeCSAvdC 68tUVrTIcnEb6du8C2x95 9OJSgQORsiP26 Js6xrOlpWWRydTTLuE4lk dpfh9efkxlmRvKhCTBoSV y8UXf0POEnbHphDlCaEBN 0XjP3HSO3aCBm xC4nzAceoeaiaL9mXld+R qLpZPeeYV60IA34nSGef4 Y9eWV7Q5UzYHAeasubmlx uhRT3UZHhKPXb rX83qRPnRGjlMc0ec7P5o 648SAPrPDZvuS80Ie1njK ksHNRwcIHYsQ1hiasjs4n vcjogIzAwMDAw MFb3FIv8UXJisUftHvMtD EA4MqO8XHD8hUVwwE4svP jqbnolnI6wSmf+AA4mamh nsbV9FH45QK49 C7LbWtqmaCYeyLP+PHRhY mxlIHdpZHRoPScxMDAlJy ZvhLqbGV0vJa4sICYuMEM vbGxhcHNlOiBj z6jhMVCtRWqnCJ9zhMfcQ 5RykYB4WPCur6x2Uj32O7 5rB7HjvMB+LPQslEO7eVV 1cR0bPtSqWzI6 MHcyQ484WnDgiSDvSpwik 9qfl8oiaSz2PvUbJLMpth XweCszOVA5h4TjKw76H01 sIHdpZHRoPSIy YSToHQTtkNiqcz5kfK7nC i8+CAXxlIU9iCN0zG6sNe OdUgW4TWjhG343GbKlmOQ fOapuH49iY9Po dXA+EHRjTpk0XAApqRctO N1arCCbQBjlNm7vXYV8Gh QnQtYzSTkwS5MpSRTfccz hrffemXS4VWCr FFMviH21Dr2juYpaSv0rJ JUzQEH3GAHtmIQvI3TliS 7bOtSsGQRtHERiQ7RkcJB kJKjoG983UVvf PnV5FJClslOaY5FrAYFxf KjnAfE3w8Z1Pb6ZbEajgX FgDA9aAxLnHYu5Z6OmUpy 9VQAanWvcHL0x cTUeBIhdAb2njXvklFaaC L7fLBRzcmipz857ErIow1 uyFFNqxZEsVTrlZGW8Y02 np8P5ODWiWGLz JOF8xNK0kS1kyUnfnuexs GVmdDsgdmVydGljYWwtYW ypD403ERMxxMdzVnXKApi 2S2TlUbn1MDPa lUcuGL0loSBiGJwgTm3he JtdrGieAL8yVWCaoiivr2 87BpZcf9jeRQCocZQsMIh eVMO1V31mq2J8 RSEnQLLeIHS3yEI6gN9wv GlnbjogbGVmdDsgdmVydG xyZYscCEqlK011GYMzaVt rCw3TGyi0J8Hi Ofs2TEEqkFmnEX4vlKJjY ZskZn2ueYgckAxuXC2nEM Jzzhclq690CiWrb2agUWH wcHQgVGltZXM7 T17ou7P4TXQaZCVdVKV4u GX2fE5uoZwuybtmvQSuxW ccauRtbQvkOWjlTExxF49 6IHRvcDsnPlBh eWVyOjwvdGQ+BP99dj61F 4NzKfeqAad6NUGmIGT8jL O2jG4bYBMbONjad9V4vXK 8P4RjmqXvfh2u b2xs (more content not included)... Normal [facility] Discharge Instructionson Discharge Instructions [id number] Normal [facility] ED Clinical Summaryon 2021 ED Clinical Summary [place] [id number] ED Clinical Summary Person Information Name: DENISHA OWEN [facility] Age: 41 Years : 1980 Sex: Female Language: Ukrainian PCP: Katerine Palmer MD Marital Status: Phone: [phone] Visit Id: Visit Reason: Ankle pain-swelling; Ankle [...] 02/04/2022 22:13:26 02/04/2022 22:13:26 02/04/2022 22:13:26 ADDRESS: [address] [place] [phone] [facility] DOC NOTES: MEDICAL INFORMATION: Prescriptions Given: Medications to Continue with No Changes Other Medications acetaminophen-hydroco done ([place] 5/325 Tab) 1 Tablets By Mouth every 4 hours as needed as needed for pain. acetaminophen-hydroco done ([place] 325 mg-5 mg oral tablet) 1 Tablets By Mouth every 4 hours as needed for pain. Refills: 0. acetaminophen-hydroco done ([place] 325 mg-5 mg oral tablet) 1 Tablets [...] INFORMATION: Instructions: Cast or Splint Care, Adult, Ysln-gv-Mcok Follow up: With: Address: When: Ruben Shelton [address] [facility] [place] [address] [place] (1) In 3 days 02/07/2022 Comments: Follow-up with Dr. Shelton for further evaluation of your left ankle injury. With: Address: When: Katerine Palmer [place] [address] [place] (1) In 3 days 02/07/2022 Comments: Follow-up with your primary care provider in 3 to 5 days. If symptoms worsen, do not improve, or new symptoms arise please report back to emergency department for further evaluation. DIAGNOSIS: Fibula fracture; Left ankle injury Normal [facility] ED Note-Physicianon 02-06-20 ED Note-Physician Basic Information Time Seen: Barber BARFIELD, Kei Estvees 02/04/2022 20:39 Chief Complaint pt to ED [...] boot. She is to follow-up with Dr. Shleton for further evaluation. Patient was understanding of [...] Shelton In 3 days 02/07/2022 EST [address] [place] [address]- Business (1) Additional Instructions: Follow-up with Dr. Shelton for further evaluation of your left ankle injury. Katerine Palmer In 3 days 02/07/[address] [place] [address]- Business (1) Additional Instructions: Follow-up with your primary care provider in 3 to 5 days. If symptoms worsen, do not improve, or new symptoms arise please report back to emergency department for further evaluation. Patient Education Cast or Splint Care, Adult, Dcnu-rb-Pffg Attestation Patient seen and evaluated by the physician culture media laboratory assistant. Attending physician was present in the emergency department and supervised care. This visit was performed by both the physician and an APC. I performed all aspects of the MDM as documented. This report was transcribed using voice recognition software. Every effort was made to ensure accuracy, however, inadvertently computerized inspector of weights and measures mistakes may (more content not included)... [facility] Comment on above: Result Comment: Elec [...] Reviewed: 02/21/2017 Elsevier Patient Education ? 2019 [employer] Normal [facility] ED Patient Summaryon 022 ED Patient Summary [place] [id number] Patient Discharge Instructions Person Information Name: DENISHA OWEN Age: 41 Years Arrival Date: 02/04/2022 20:27:41 Discharge Diagnosis: Fibula fracture; Left ankle injury Primary Care Physician: Katerine Palmer MD Provider Information Primary Provider: Richie Ross DO Advanced Machine Rigger:None The exam and treatment you received in the Emergency Department were for an urgent problem and are not intended as complete care. It is important that you follow up with a doctor, nurse practitioner, or physician?s culture media laboratory assistant for ongoing care. If your symptoms [...] Instructions: With: Address: When: Ruben Shelton [address] [place] [address] [employer] (1) In 3 days 02/07/2022 Comments: Follow-up with Dr. Shelton for further evaluation of your left ankle injury. With: Address: When: Katerine Palmer [place] [address] [employer] (1) In 3 days 02/07/2022 Comments: Follow-up [...] Education Materials: Cast or Splint Care, Adult, Ulma-ia-Nvzf A MESSAGE TO ALL PATIENTS REGARDING OPIOIDS PRESCRIPTION OPIOIDS: WHAT YOU NEED TO KNOW Prescription opioids can be used to help relieve jjbatfpc-it-yypfxb pain and are often prescribed following a [...] or your (more content not included)... Normal [facility] XR Ankle 3+ Views Lefton XR [...] Kahn MD Transcribed by: NABIL Technologist: KERRY [facility] XR Tib/Fib Left 2 Viewon XR Tib/Fib [...] Kahn MD Transcribed by: NABIL Technologist: KERRY [facility] Consent for Treatmenton 01-16 Consent for Treatment [id number] .00CD:127 [facility] Vital Signs Date Time Vital Sign Value Performing Clinician No tam 10-26-2022 18:32-0400 Diastolic blood pressure 74 mm[Hg] [facility] 10-26-2022 18:32-0400 Heart rate 57 /min [facility] 10-26-2022 18:32-0400 Respiratory rate 14 /min [facility] 10-26-2022 18:32-0400 SaO2% (BldA) [Mass fraction] 100 % [facility] 10-26-2022 18:32-0400 Systolic blood pressure 100 mm[Hg] [facility] 10-26-2022 18:00-0400 Heart rate 64 /min Jeovanny Valcon [facility] 10-26-2022 18:00-0400 SaO2% (BldA) [Mass fraction] 95 % [facility] 10-26-2022 17:10-0400 Body temperature 97.88 [degF] Jeovanny Radha [facility] 10-26-2022 17:10-0400 Diastolic blood pressure 92 mm[Hg] Jeovanny Radha [facility] 10-26-2022 17:10-0400 Heart rate 69 /min Jeovanny Radha [facility] 10-26-2022 17:10-0400 Respiratory rate 14 /min Jeovanny Radha [facility] 10-26-2022 17:10-0400 SaO2% (BldA) [Mass fraction] 100 % Jeovanny Radha [facility] 10-26-2022 17:10-0400 Systolic blood pressure 128 mm[Hg] Jeovanny Radha [facility] 04-26-2022 18:00-0500 Diastolic blood pressure 70 mm[Hg] Jeovanny Radha [facility] 04-26-2022 18:00-0500 Heart rate 66 /min Jeovanny Radha [facility] 04-26-2022 18:00-0500 Mean blood pressure 82 mm[Hg] Jeovanny Radha [facility] 04-26-2022 18:00-0500 Systolic blood pressure 105 mm[Hg] Jeovanny Radha [facility] 04-26-2022 17:30-0500 Diastolic blood pressure 63 mm[Hg] Jeovanny Radha [facility] 04-26-2022 17:30-0500 Heart rate 67 /min Jeovanny Radha [facility] 04-26-2022 17:30-0500 Mean blood pressure 79 mm[Hg] Jeovanny Radha [facility] 04-26-2022 17:30-0500 Respiratory rate 18 /min Jeovanny Vieirae [facility] 04-26-2022 17:30-0500 SaO2% (BldA) [Mass fraction] 98 % Jeovanny Vieirae [facility] 04-26-2022 17:30-0500 Systolic blood pressure 112 mm[Hg] Jeovanny Vieirae [facility] 04-26-2022 17:00-0500 Diastolic blood pressure 76 mm[Hg] Jeovanny Vieirae [facility] 04-26-2022 17:00-0500 Heart rate 80 /min Jeovanny Vieirae [facility] 04-26-2022 17:00-0500 Mean blood pressure 85 mm[Hg] Jeovanny Vieirae [facility] 04-26-2022 17:00-0500 Respiratory rate 25 /min Jeovanny Vieirae [facility] 04-26-2022 17:00-0500 SaO2% (BldA) [Mass fraction] 99 % Jeovanny Veiirae [facility] 04-26-2022 17:00-0500 Systolic blood pressure 104 mm[Hg] Jeovanny Vieirae [facility] 04-26-2022 16:57-0500 Body temperature 98.06 [degF] Jeovanny Radha [facility] 04-26-2022 16:57-0500 Heart rate 72 /min Jeovanny Vieirae [facility] 04-26-2022 16:57-0500 Respiratory rate 16 /min Jeovanny Vieirae [facility] 02-04-2022 20:34-0500 Body temperature 98.06 [degF] eder Ross [facility] 02-04-2022 20:34-0500 Diastolic blood pressure 73 mm[Hg] Richie Ross [facility] 02-04-2022 20:34-0500 Heart rate 74 /min Richie Ross [facility] 02-04-2022 20:34-0500 Respiratory rate 16 /min [facility] 02-04-2022 20:34-0500 SaO2% (BldA) [Mass fraction] 97 % [facility] 02-04-2022 20:34-0500 Systolic blood pressure 125 mm[Hg] [facility] Encounters Encounter Date Encounter Type Care Provider Facility Start: 10-26-2022 End: 10-26-2022 Emergency department patient visit Jeovanny Garcia Facility:[facility] Start: 10-26-2022 End: 10-26-2022 Emergency department patient visit Jeovanny Garcia [facility] Start: 09-21-2022 End: 09-22-2022 ambulatory Mathieu JOSHI Facility:CD:[id number] Start: 04-26-2022 End: 04-26-2022 Emergency department patient visit Jeovanny Garcia Facility:[facility] Start: 04-26-2022 End: 04-26-2022 Emergency department patient visit Jeovanny Garcia [facility] Start: 02-04-2022 End: 02-05-2022 Emergency department patient visit Richie Ross Facility:[facility] Start: 02-04-2022 End: 02-04-2022 Emergency department patient visit Richie Ross [facility] Start: 09-06-2019 End: 09-07-[address] MEEK BAHENA Facility: Start: 07-08-2018 Patient encounter procedure Facility:[facility] Procedures Date Procedure Procedure Detail Performing Clinician Start: 06-18-2013 Laparoscopic cholecystectomy Richie Ross Laparoscopy 1 Richie Ross Comment on above: x2 leep Richie Ross Immunizations Immunization Date Immunization Notes Care Provider Fa cility 07-06-2020 COVID-19, mRNA, LNP- S, PF, 30 mcg/0.3 mL dose Petrainn Zahiraen [facility] Comment on above: Reason for Medicatio n: Prophylaxis 06-15-2020 COVID-19, mRNA, LNP- S, PF, 30 mcg/0.3 mL dose Katerinylinn Zahiraen [facility] Comment on above: Reason for Medicatio n: Prophylaxis Payers Date Payer Category Payer Unknown [id number] [id number] [id number] 1980 Unknown [id number] 2.16.8 [id number] 1980 Unknown [id number] 2.16.8 [id number] 1980 Unknown [id number] 2.16.8 [id number] 1980 Unknown [id number] 2.16.8 [id number] 1961 Unknown [id number] Social History Date Type Detail Facility Start: 04-10-2021 Tobacco smoking status Heavy t obacco smoker (finding) [facility] Sex Assigned At Female [facility] Tobacco Current vaping o r e-cigarette use Smokeless Tobacco Use:. [facility] Tobacco smoking status No Smokin g Status Entered [facility] Functional Status Date Assessment Result Facility 10-26-2022 Functional Status N/A [facility] 04-26-2022 Functional Status N/A [facility] 02-04-2022 Functional Status N/A [facility] Hospital Discharge instructions 10-26-2022 Note Date & Type Note Facility 10-26-2022 Hospital Discharg e instructions Follow Up Care 10/26/2022 17:08:37 With:Leland Ford Address: [address] [place] [place] [address] [address] [address]- [phone] Business (1) When:10/29/2022 18:14:31 With:Katerine Palmer Address: [address] [place] [address]- Business (1) When:Within 3 Day(s) [facility] Evaluation + Plan note 10-26-2022 Note Date & Type Note Facility 10-26-2022 Evaluation + Plan note Extrac dmitri from: Title:ED Note Author:Jeovanny Garcia DO Date:10/15 05/09 Abdominal pain (R10.9: Unspe cified abdominal pain) Orders: dicyclomine, 20 mg = 1 tab(s), Oral, TID, X 7 day(s), # 21 tab(s), Refills(s) 0, Pharmacy: [facility]/pharmacy #[id number], 170, cm, 10/26/22 17:15:00 EDT, Height/Length Dosing, 75, kg, 10/26/22 17:15:00 EDT, Weight Dosing ondansetron, 4 mg = 1 tab(s), Oral, q6hr, PRN Nausea, Take one tab by mouth every six hours as needed for nausea, # 10 tab(s), Refills(s) 0, Pharmacy: [facility]/pharmacy #[id number], 170, cm, 10/26/22 17:15:00 EDT, Height/Length Dosing, 75, kg, 10/26/22 17:15:00 EDT, Weight D... Automated Diff Basic Metabolic Panel CBC w/ Auto Diff CT Abdomen/Pelvis w/ Contrast eGFR Extra Blue Tube Extra SST Tube Hepatic Function Panel Lactic Acid Lipase Level Saline Lock Insert UA With Cult Reflex [facility] Hospital Discharge instructions 04-26-2022 Note Date & Type Note Facility 04-26-2022 Hospital Discharg e instructions Follow Up Care 04/26/2022 16:56:48 With:Katerine Palmer Address: [address] [place] [address]- Business (1) When:Within 3 Day(s) [facility] Evaluation + Plan note 04-26-2022 Note Date [...] Troponin 9 Hr. XR Chest Single View [facility] Hospital Discharge instructions 02-05-2022 Note Date & Type Note Facility 02-05-2022 Hospital Discharg e instructions Patient Education 02/04/2022 22:13:26 Cast or Splint Care, Adult, Depy-nw-Cwke Cast or Splint Care, Adult Casts and [...] 07/03/2011 Document Revised: 06/23/2019 Document Reviewed: 02/21/2017 [employer] Patient Education 2020 [employer] Follow Up Care 02/04/2022 20:30:22 With:Ruben Shelton Address: [address] [place] [address]- Business (1) When:02/07/2022 21:31:06 Comments:Follow-up with Dr. Shelton for further evaluation of your left ankle injury. With:Katerine Palmer Address: [address] [place] [address]- Business (1) When:02/07/2022 21:30:58 Comments:Follow-up with your primary care provider in 3 to 5 days. If symptoms worsen, do not improve, or new symptoms arise please report back to emergency department for further evaluation. [facility] Evaluation + Plan note 02-21-2021 Laboratory Note Date & Type Note Facility 02-21-2021 Evaluation + Plan note Future Scheduled [id number], SMITH 02/21/21 [facility] Hospital course Narrative Note Date & Type Note Facility Hospital course Narrative No data available for this section [facility] Progress note Note Date & Type Note Facility Progress note No data available for this section [facility] Summary Purpose Family History No Family History Records FoundNo Family History Records FoundNo Family History Records Found Advance Directives No Advanced Directives Records FoundNo Advanced Directives Records FoundNo Advanced Directives Records Found Additional Source Comments INFORMATION SOURCE (unrecogn ized section and content) DATE CREATED AUTHOR 07/09/2018 [facility] DATE CREATED AUTHOR AUTHOR'S ORGANIZ ATION 12/27/2020 [facility] DATE CREATED AUTHOR AUTHOR'S ORGANIZ ATION 10/27/2022 [facility] Patient Care team informatio n (unrecognized section and content) Personnel Name: Katerine Palmer MD Address: Address: [address] [place] [address] Name: Janette Housing LiaisonJaneth Personnel Name: Katerine Palmer MD Address: Address: [address] [place] [address]- Name: Janette Housing LiaisonJaneth Personnel Name: Estela YAN Katerine David Address: Address: [address] [place] [address]- Name: Janette Housing LiaisonJaneth FOR RECORDS PERTAINING TO PATIENTS WHO ARE [...] BE BASED ON THE PRIMARY CLINICAL RECORDS. [facility] [employer] provides no warranty or guarantee of the accuracy or completeness of information in this document.
--- NOTE | 2023-05-15 11:29 | PM.HP ---
H&P: HPI History of Present Illness Chief complaint: ABDOMINAL PAIN Narrative: Denisha Owen is a 43 year old female presenting due to acute appendicitis. She states diffuse abdominal pain began around 3:00pm yesterday. She admits to nausea and vomiting during this time. States she took her muscle relaxers before bed as usual in hopes of sleeping off the pain. States she woke up around 12:00am due to the pain and was unable to sleep the rest of the night. States she arrived to the ED around 8:00am when she noticed the pain was more localized to the RLQ. At time of onset patient rates the pain 10/10 and states worse with movement. States since her hospitalization in September she has had intermittent constipation but denies blood in the stool. Patient states in September she was hospitalized for similar pain. States she was placed on antibiotics. It was suspected she had colitis at this time and possible rupture of ovarian cysts. Patient has history of endometriosis and degenerative disc disease. Surgical history of hysterectomy, cholecystectomy,. and laparoscopies for her endometriosis which is managed by Dr. Castaneda. Patient admits to vaping and denies use of [place] [address] CT Scan Report Signed Patient: DENISHA OWEN MR#: [id number] : 1980 Acct:[id number] Age/Sex: 43 / F ADM Date: 05/15/23 Loc: ER Attending Dr: Ordering Physician: Mariano Gonzalez Date of Service: 05/15/23 Procedure(s): CT abdomen pelvis w con Accession Number(s): [id number] cc: DANILO HERNANDES ~ [facility] [place] [address] Patient Name: DENISHA OWEN MRN: [id number] date: 1980 Sex: F Assigned Patient Location: ER Current Patient Location: ER Accession/Order Number: [id number] Exam Date: 05/15/2023 08:50 Report Date: 05/15/2023 09:32 At the request of: MARIANO GONZALEZ Procedure: CT abdomen pelvis w con EXAM: CT abdomen pelvis w con HISTORY: Lower abdominal pain, right greater than left. COMPARISON: CT dated 09/23/2022. TECHNIQUE: IV contrast only was in a sister. Sagittal and coronal reformatted images were produced. Dose reduction techniques were achieved by using automated exposure control and/or adjustment of mA and/or kV according to patient size and/or use of iterative reconstruction technique. FINDINGS: There is mild atelectasis versus scarring in the right lung base. The lung bases are otherwise clear. The visualized heart and great vessels are stable in size and configuration. The liver shows stable mild enlargement with diffuse fatty change. The spleen is borderline enlarged but enhances normally and is stable in size. The adrenal glands and pancreas are normal. Surgical changes of cholecystectomy. The kidneys enhance symmetrically. Both kidneys show a few very small simple cyst. There is no hydronephrosis and no stones are seen in the ureters. The aorta has a normal course and caliber. The large and small bowel are normal caliber. The appendix is markedly dilated and contains fluid, stool-like material, and a possible relatively lucent appendicolith. There is also suggestion of a circumferential area of narrowing and wall thickening at the base of the appendix. Surgical changes of hysterectomy. There is a normal appearing left ovarian cyst. The right ovary is mostly obscured but also shows a small grossly simple cyst. There is free fluid around the appendix and in the right adnexa. Urinary bladder is minimally filled but is grossly normal. There are no organized fluid collections to suggest abscess formation. No free air seen. Osseous structures are stable in appearance. CT/CT abdomen pelvis w con IMPRESSION: Findings are consistent with acute appendicitis. There is no definitive evidence of rupture. The free fluid is most likely due to the inflammatory process in the appendix. The appearance of the base of the appendix is indeterminate and could be seen with normal anatomy, chronic changes from inflammation, or a neoplastic process. Other stable findings as above. Findings were discussed with Dr. Mariano Gonzalez in the emergency department at 9:32 AM on 05/15/2023. Electronically authenticated by: MATHIEU ROBERTS Date: 05/15/2023 09:32 Dictated By: Mathieu Roberts M.D. Signed By: 05/15/23 0935 DD/ TD/TT: Apprenticeship Training Representative: Review of Systems ROS Status of ROS 10 or more systems reviewed and unremarkable except as noted in history and below [facility] Medical History (Updated 05/15/23 @ 12:31 by Mathieu Rueda MD) History of endometriosis ?Z87.42 - Personal history of other diseases of the female genital tract (ICD-10) Anxiety ?F41.9 - Anxiety disorder, unspecified (ICD-10) Depression ?F32.A - Depression, unspecified (ICD-10) Endometriosis ?N80.9 - Endometriosis, unspecified (ICD-10) Bulging of cervical intervertebral disc ?M50.30 - Other cervical disc degeneration, unspecified cervical region (ICD-10) Bulging lumbar disc ?M51.36 - Other intervertebral disc degeneration, lumbar region (ICD-10) Abdominal pain ?R10.9 - Unspecified abdominal pain (ICD-10) Surgical History H/O exploratory laparotomy ?Z98.890 - Other specified postprocedural states (ICD-10) History of cholecystectomy ?Z90.49 - Acquired absence of other specified parts of digestive tract (ICD-10) H/O: hysterectomy ?Z90.710 - Acquired absence of both cervix and uterus (ICD-10) Family History Grandmother Family history of cancer Family history of diabetes mellitus Family history of hypertension Social History Within the past year, how often did you have a drink containing alcohol: never Score interpretation: A score less than 3 is consistent with normal alcohol consumption. 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 Highest level of school completed/degree received: some college, no degree Meds Home Medications and Allergies Home Medications Medication Instructions Recorded Confirmed Type escitalopram oxalate 10 mg tablet 10 mg PO DAILY 09/21/22 05/15/23 History tizanidine 4 mg tablet 4 mg PO BEDTIME PRN muscle 09/21/22 05/15/23 History spasticity sumatriptan succinate 25 mg tablet 25 mg PO Q2H PRN migraine headache 05/15/23 05/15/23 History Allergies Allergy/AdvReac Type Severity Reaction Status Date / Time No Known Drug Allergies Allergy Verified 09/21/22 10:13 Exam Constitutional Vital Signs, click to edit/add: Last Vital Signs Temp 98.2 F 05/15/23 10:56 Pulse 71 05/15/23 10:56 Resp 18 05/15/23 10:56 BP 109/68 05/15/23 10:56 Pulse Ox 96 05/15/23 10:56 O2 Del Method Room Air 05/15/23 10:56 Documenting provider has reviewed patient's vital signs: yes General appearance: cooperative and comfortable HENMT Common normals: normocephalic and head/scalp atraumatic Respiratory Common normals: normal respiratory effort Effort & inspection: able to speak in complete sentences and symmetric chest movement Auscultation: clear to auscultation bilaterally; no crackles, no rhonchi and no wheezes Cardio Common normals: regular rate, regular rhythm, S1 normal heart sound and S2 normal heart sound; gallops detected, murmurs detected and rub detected GI Inspection: normal to inspection Palpation: soft, tender Details: RLQ and McBurney's point, guarding in the RLQ and rebound tenderness present Details: McBurney's point Extremity Common normals: normal to inspection and full ROM Neuro Sensorium/orientation: awake, alert, oriented to person, oriented to place and oriented to time Psych Common normals: cooperative, affect normal and speech normal Results Labs Labs: Short CBC 05/15/23 Range/Units 08:20 WBC 15.7 H (4.0-11.0) 10^3/uL Hgb 12.9 (12.0-16.0) g/dL Hct 38.7 (36.0-48.0) % Plt Count 287 (150-450) 10^3/uL BMP 05/15/23 08:20 Sodium 138 Potassium 3.7 Chloride 102 Carbon Dioxide 29.8 BUN 10.0 Creatinine 0.85 Glucose 112 H Calcium 8.4 L Urine 05/15/23 Range/Units 09:07 Urine Color Yellow (YELLOW) Urine Clarity Clear (CLEAR) Urine pH 8.0 (5.0-9.0) Ur Specific Craig 1.010 (1.005-1.025) Urine Protein Negative (NEG/TRACE) mg/dL Urine Glucose (UA) Negative (NEGATIVE) mg/dL Assessment and Plan Assessment and Plan (1) Acute appendicitis: (2) History of endometriosis: Plan Patient agreeable to appendectomy due to acute appendicitis. Patient given Rocephin and Flagyl in ED. Patient made aware of possible complications including infection, bleeding, abscess, blood clots to the legs, heart attack, stroke, and/or . Patient voiced understanding.
--- NOTE | 2023-05-15 12:33 | PM.GSPRC ---
Date of procedure: 05/15/23 Indications for Procedure: Acute appendicitis Pre-op diagnosis: Acute appendicitis Post-op diagnosis: same as pre-op Procedure: Laparoscopic appendectomy Findings: acute supparative appendicitis Anesthesia: GETA Surgeon: Mathieu Rueda Procedure Summary: LAPAROSCOPIC APPENDECTOMY The patient was taken to the operating suite, placed in the supine position and given a general anesthetic by the anesthesiologist. The abdomen was prepped and draped in the usual sterile fashion.timeout was taken. SCDs and preoperative antibiotics were given to the patient preoperatively. A subumbilical incision was made down to the anterior rectus fascia and was opened in the midline and traction sutures of #0 Vicryl were placed. The peritoneal cavity was entered and the Gail port was placed into the abdominal cavity. The abdomen was insufflated with carbon dioxide to 15 mmHg pressure. The laparoscope was then placed with an acute suppurative appendix found when the patient was placed in Trendelenburg position. A 12 mm port was placed in the left lower quadrant and another 12 mm port was placed in the right upper quadrant all under direct visualization. A grasper was placed on the mesoappendix and it was held anteriorly on traction and then a curved dissector was used to dissect a window in the mesoappendix and then an Endo-TY stapling device was fired across the base the appendix with hemostasis being maintained.The ligature device was used to take down the mesoappendix maintaining hemostasis.Hemostasis being maintained. Hemostasis being maintained, all ports were then removed after the appendix had been removed in a bag an specimen was sent to pathology. Anterior rectus fascia was closed with #0 Vicryl suture in an interrupted fashion and the other two port sites were also closed with #0 Vicryl suture in an interrupted fashion. 0.5% Marcaine 30 cc was used to anesthetize subcutaneous tissue. Skin was closed with 4 Monocryl suture in running subicular fashion. Sponge, needle and instrument counts were correct. Case was clean,contaminated emergency Specimen - Appendix The patient went to recovery room in satisfactory condition. Estimated blood loss (mL): 0 Condition: stable Disposition: PACU
[2023-05-15] MEDS: LACTATED RINGER'S SOLUTION 1,000 ML 50 ML IV (13:32)
[2023-05-15] MEDS: BUPIVACAINE HCL 0.5% PF 50 MG/10 ML VIAL 20 ML INJ (13:37)
--- NOTE | 2023-05-21 15:09 | CM.DCFOLLOWU ---
Person spoke with:patient How are you feeling? well How is your pain? still a little sore Did you understand your discharge instructions? yes Do you have any questions about your discharge instructions? no Were you given any prescriptions at discharge? yes Were you able to get your prescriptions filled? yes Do you understand how to take your medications as ordered? yes Do you have any questions about your follow up appointment and do you plan to keep your follow up appointment? no questions, follow up is on 05/27/23 Is there anything else that you would like to discuss? no Questions/Comments/Concerns/Other: N/A
== END 2023-05-15 17:50 | disposition home or self-care (01) ==
LOC: ER 10:17 → MS 10:46
PROVIDERS: Admitting Provider Surgery; Emergency Provider Emergency Medicine Emergency Medical Services; PCP Student in an Organized Health Care Education/Training Program; Visit Provider Surgery
PROC: (CPT 840; principal; 2023-05-15 12:00)
DX: K35.891 Other acute appendicitis without perforation, with gangrene (principal); F17.290 Nicotine dependence, other tobacco product, uncomplicated; Z90.49 Acquired absence of other specified parts of digestive tract; Z90.710 Acquired absence of both cervix and uterus; Z79.899 Other long term (current) drug therapy
CPT/HCPCS: 44970; 36415; 74177; 80048; 81003; 84703; 85025; 88304; 96365; 96375; 99284; 99999; G0378; J1094; J2704; Q9967